=== PATIENT | male | born 1955 | race Caucasian/White ===

== ENCOUNTER 2023-04-24 09:30 | Inpatient (IN) | payer OTHER, SELFPAY ==
[2023-04-24] VITALS (35 sets, daily range): BP systolic 112–142; BP diastolic 62–82; PULSE 84–106; RESP 18–28; TEMP 36.6–37; O2SAT 86–97; BMI 31.6
--- NOTE | 2023-04-24 10:06 | ED_ITS ---
HPI - General Adult General Time Seen by Provider: 10:06 Date Seen: 04/24/23 Chief complaint: Weakness Stated complaint: post chemo complications, diarrhea and dehydration Time Seen by Provider: 04/24/23 10:06 Source: patient and RN notes reviewed Mode of arrival: ambulatory Limitations: no limitations History of Present Illness HPI narrative: Patient is a 68-year-old male referred by his oncology team to be evaluated for possible dehydration. 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 He is receiving treatments in [place]. This past Thursday diarrhea really started to set in. He has had some nausea no vomiting. His last solid intake for food was yesterday but has been able to drink fluids. He has Compazine Zofran Ativan and loperamide for his symptoms. He did take Zofran and loperamide this morning. He believes he used about 10 tablets of loperamide yesterday. He notes he is not going as frequently for urination and the urine is becoming darker. When they talked to the nurse on the phone this morning, she thought he should go in to be evaluated for dehydration. He has no history of C difficile, no abdominal pain, no fevers with this. He does not have oxygen at home, was not noted to be symptomatic with his 86% on arrival. He states he has significant chronic lung disease and is afflicted with bronchopulmonary aspergillosis. He states he has been on prednisone for decades. Related Data Allergies Allergy/AdvReac Type Severity Reaction Status Date / Time No Known Drug Allergies Allergy Verified 04/24/23 12:01 Review of Systems Status of ROS: Reports: 6 or more systems reviewed and unremarkable except as noted in History and below [facility] Social History (System 04/24/23 @ 12:01 by Rosalino Taylor) Smoking Status: Never smoker Do you use any of these nicotine containing products: None Second hand tobacco smoke exposure: No How often do you have a drink containing alcohol: 4 or more times a week How many standard drinks containing alcohol do you have on a typical day: 5 or 6 How often do you have six or more drinks on one occasion: Daily or almost daily AUDIT-C Alcohol total score: 10 Non-prescribed substance use: denies use service: No Exam Const: Vital Signs, click to edit/add: Vital Signs - 24 hr 04/24/23 09:43 04/24/23 10:15 04/24/23 10:15 Temperature 98.3 F Pulse Rate Pulse Rate [Apical ] 106 H Respiratory Rate 28 H Blood Pressure Blood Pressure [Ri ght Upper Arm] 132/70 Pulse Oximetry 86 L 95 95 Oxygen Delivery Me thod Room Air Nasal Cannula Fraction of Inspir ed Oxygen 2 04/24/23 10:34 04/24/23 10:35 04/24/23 10:45 Temperature Pulse Rate 105 H 105 H 104 H Pulse Rate [Apical ] Respiratory Rate Blood Pressure Blood Pressure [Ri ght Upper Arm] Pulse Oximetry 96 96 95 Oxygen Delivery Me thod Fraction of Inspir ed Oxygen 04/24/23 10:53 04/24/23 10:54 04/24/23 11:00 Temperature Pulse Rate 103 H 104 H 104 H Pulse Rate [Apical ] Respiratory Rate Blood Pressure 114/69 Blood Pressure [Ri ght Upper Arm] Pulse Oximetry 97 97 96 Oxygen Delivery Me thod Fraction of Inspir ed Oxygen 04/24/23 11:02 04/24/23 11:15 04/24/23 11:30 Temperature Pulse Rate 101 H 99 95 Pulse Rate [Apical ] Respiratory Rate Blood Pressure 112/82 Blood Pressure [Ri ght Upper Arm] Pulse Oximetry 96 97 97 Oxygen Delivery Me thod Fraction of Inspir ed Oxygen 04/24/23 11:31 04/24/23 12:04 04/24/23 12:05 Temperature Pulse Rate 96 97 Pulse Rate [Apical ] Respiratory Rate Blood Pressure 115/70 142/71 H Blood Pressure [Ri ght Upper Arm] Pulse Oximetry 97 97 Oxygen Delivery Me thod Fraction of Inspir ed Oxygen 04/24/23 12:15 04/24/23 12:30 04/24/23 12:32 Temperature Pulse Rate 99 89 97 Pulse Rate [Apical ] Respiratory Rate Blood Pressure 122/71 Blood Pressure [Ri ght Upper Arm] Pulse Oximetry 96 96 96 Oxygen Delivery Me thod Fraction of Inspir ed Oxygen 04/24/23 12:45 04/24/23 13:00 04/24/23 13:02 Temperature Pulse Rate 96 95 98 Pulse Rate [Apical ] Respiratory Rate Blood Pressure 124/70 Blood Pressure [Ri ght Upper Arm] Pulse Oximetry 96 96 96 Oxygen Delivery Me thod Fraction of Inspir ed Oxygen 04/24/23 13:15 04/24/23 13:30 04/24/23 13:45 Temperature Pulse Rate 88 95 92 Pulse Rate [Apical ] Respiratory Rate Blood Pressure Blood Pressure [Ri ght Upper Arm] Pulse Oximetry 95 95 97 Oxygen Delivery Me thod Fraction of Inspir ed Oxygen 04/24/23 14:00 04/24/23 14:15 04/24/23 14:30 Temperature Pulse Rate 94 92 94 Pulse Rate [Apical ] Respiratory Rate Blood Pressure Blood Pressure [Ri ght Upper Arm] Pulse Oximetry 96 97 96 Oxygen Delivery Me thod Fraction of Inspir ed Oxygen 04/24/23 14:45 04/24/23 15:00 04/24/23 15:05 Temperature Pulse Rate 93 91 92 Pulse Rate [Apical ] Respiratory Rate Blood Pressure Blood Pressure [Ri ght Upper Arm] Pulse Oximetry 97 96 97 Oxygen Delivery Me thod Fraction of Inspir ed Oxygen 04/24/23 15:15 Temperature Pulse Rate 94 Pulse Rate [Apical ] Respiratory Rate Blood Pressure Blood Pressure [Ri ght Upper Arm] Pulse Oximetry 96 Oxygen Delivery Me thod Fraction of Inspir ed Oxygen Documenting provider has reviewed patient's vital signs: yes Common normals: no apparent distress, oriented x3, no limitations, alert and well nourished General appearance: cooperative, comfortable, well kempt and well developed Nutritional appearance: overweight Other: Skin is tanned, is very pleasant but looks like he does not feel the best. HENMT: Common normals: normocephalic, head/scalp atraumatic, hearing grossly normal bilaterally and external ears normal Head and scalp: normocephalic and atraumatic Face and sinus: normal facial exam External ear: external ears normal Eye: Common normals: PERRL, EOMs intact bilaterally, conjunctivae normal and no scleral icterus Conjunctiva: conjunctiva(e) normal Pupil: PERRL Neck & C-Spine: Common normals: full ROM, no lymphadenopathy, supple and no JVD Chest: Other: He has a port on his right upper chest wall, there is lot of swelling and resolving ecchymosis around the site, he states it is quite sore from the last use, he requests that we actually do a peripheral IV today. Resp: Common normals: normal respiratory effort, no retractions and no use of accessory muscles Other: Diminished breath sounds, do not hear any wheezing or crackles. Cardio: Common normals: no JVD, regular rhythm, S1 normal heart sound, S2 normal heart sound, no gallops, no clicks and no murmurs Rate: tachycardic Rhythm: regular rhythm Heart sounds: S1 normal and S2 normal GI: Common normals: Normal to inspection, nondistended, normoactive bowel sounds present, soft to palpation, non-tender, no hepatosplenomegaly and no masses Palpation: soft and no hepatosplenomegaly Extremity: Common normals: no calf tenderness and no pedal edema Neuro: Common normals: oriented x3 Sensorium/orientation: alert Psych: Appearance: well kempt Course Course Hospital Course: Patient is a chemotherapy patient on FOLFIRI with probable dehydration due to diarrhea. Diarrhea is a known complication of this. Will consider entities like C difficile colitis. He denies any blood in the diarrhea. It is likely that this is just chemotherapy complications. Will get appropriate blood work. He is mildly hypoxic, will get portable chest x-ray, also consider thromboembolic disease versus pneumonia versus cardiac manifestations. He is looking quite stable. Will start with a L of IV fluids, doubt his hypoxia is related to anything like congestive heart failure but will obviously be getting a portable chest x-ray. Reevaluation(s) Time of Reevaluation #1: 11:26 Reevaluation #1: Patient is notably feeling better, states he has not had any diarrhea. No chest pain, no abdominal pain. Reviewed that the troponin is elevated but EKG looks to be without ischemia. D-dimer is mildly elevated. Will proceed with chest CT PE protocol. His did want to know how we were going to resolve the diarrhea. Reviewed with her that we really do not have any great wait to do this. If this is chemotherapy-induced, just needs to wait through time and take the medicine he has been using. If he does produce stool, we can check for C difficile. Time of Reevaluation #2: 15:35 Reevaluation #2: Reviewed with patient and his that the troponins are elevated. He states he was feeling better but now feels like the diarrhea is going to come back. Did review with him that we do want a collect for C difficile. I can order Imodium but we really do want to collect stool. He would like to eat, I think that is fine to have him try eating. Reviewed that [facility] does not have capacity to accept him. I do recommend that he is observed for serial troponins, echo tomorrow as per cardiology's recommendations. Consultations Consultation #1: Have contacted [facility], spoke with Precious GIBSON in the transfer center. She will be contacting Oncology/Cardiology and reviewing my request for transfer. Will talk to patient regarding the increased troponin and plan once I have talked to [facility] in follow-up. At 1:[address] speak with Dr[address] Gurrola the hospitalist as well as Dr. Watson from Cardiology. There are no beds at [facility] right now, they are on divert. Dr. Watson feels that patient likely is stable to stay here, trend troponins and consider echo or cardiac MRI. Reviewed with him that we cannot do cardiac MRIs here but could get an echo tomorrow. We will call them back if there is any change in status but they cannot accept patient this time and they do feel that he is stable to be observed here. Time: 14:20 Consultation #2: Did speak with our hospitalist Dr. Marr. We will give 324 mg aspirin, make sure that C difficile is collected. I will allow patient to eat, did order 2 mg dose of Imodium per his request. Will start maintenance fluid as discussed with the hospitalist. Time: 15:46 Vital Signs Vital signs: Initial Vital Signs Temperature 98.3 F 04/24/23 09:43 Temperature Source Temporal Artery Scan 04/24/23 09:43 Pulse Rate 106 H 04/24/23 09:43 Respiratory Rate 28 H 04/24/23 09:43 Blood Pressure 132/70 04/24/23 09:43 Blood Pressure Mean 90 04/24/23 09:43 Blood Pressure Position Supine 04/24/23 09:43 Pulse Oximetry 86 L 04/24/23 09:43 Oxygen Delivery Method Room Air 04/24/23 09:43 Vital Signs Temperature 98.3 F 04/24/23 09:43 Pulse Rate 106 H 04/24/23 09:43 Respiratory Rate 28 H 04/24/23 09:43 Blood Pressure 132/70 04/24/23 09:43 Pulse Oximetry 86 L 04/24/23 09:43 Oxygen Delivery Method Room Air 04/24/23 09:43 Temperature 98.3 F 04/24/23 09:43 Pulse Rate 94 04/24/23 15:15 Respiratory Rate 28 H 04/24/23 09:43 Blood Pressure 124/70 04/24/23 13:02 Pulse Oximetry 96 04/24/23 15:15 Oxygen Delivery Method Nasal Cannula 04/24/23 10:15 Fraction of Inspired Oxygen 2 04/24/23 10:15 Medical Decision Making Medical Records Medical records reviewed: Yes I reviewed the patient's medical records Medical records narrative: Review of prior clinic records show he was last seen in 2019 here. At that time he was on Advair 250/50, prednisone, theophylline, albuterol MDI. He is listed as having had colon cancer status post partial colectomy including his appendix. He does have recurrence at this time and just started chemotherapy last week. Lab Data Lab results reviewed: Yes I reviewed the patient's lab results Labs: Lab Results 04/24/23 04/24/23 Range/Units 10:23 13:31 WBC 3.94 L (4.50-11.00) K/uL RBC 4.59 (4.30-5.90) m/uL Hgb 14.4 (13.5-17.5) gm/dL Hct 43.3 (37.0-53.0) % MCV 94 (80-100) fL MCH 31 (26-34) pg MCHC 33 (32-36) gm/dL RDW Coeff of Oma 12.1 (11.5-15.5) % Plt Count 239 (140-440) K/uL Neut % (Auto) 58.8 (42.0-72.0) % Lymph % (Auto) 17.5 L (20-44) % Payne % (Auto) 16.0 H (0.0-11.0) % Eos % (Auto) 6.9 (0.0-7.0) % Baso % (Auto) 0.3 (0.0-3.0) % Neut # (Auto) 2.30 (1.7-7.0) K/uL Lymph # (Auto) 0.70 L (0.90-2.90) K/uL Payne # (Auto) 0.60 (0.00-0.90) K/UL Eos # (Auto) 0.30 (0.00-0.50) K/uL Baso # (Auto) 0.00 (0.00-0.30) K/uL Abs Immat Gran (auto) 0.00 (0.00-0.30) K/uL Imm/Tot Granulo (auto) 0.5 % D-Dimer Quant (PE/DVT) 0.66 H (0.00-0.50) ug/ml VBG pH 7.387 (7.32-7.43) VBG pCO2 45 (40-50) mmHG VBG pO2 48.3 H (25-47) mmHG VBG HCO3 27 (21-28) mmol/L Sodium 130 L (135-149) mmol/L Potassium 4.0 (3.6-5.1) mmol/L Chloride 97 (96-114) mmol/L Carbon Dioxide 25 (20-32) mmol/L BUN 18 (7-30) mg/dL Creatinine 1.1 (0.5-1.5) mg/dL Estimated Creat Clear 68.21 Estimated GFR 74 ml/min Glucose 105 (60-115) mg/dL Lactate 0.9 (0.5-1.9) mmol/L Calcium 8.3 L (8.4-10.6) mg/dL Total Bilirubin 1.2 (0.1-1.5) mg/dL AST 20 (12-35) U/L ALT 22 (4-50) U/L Alkaline Phosphatase 51 (40-150) U/L Troponin I 0.10 H* 0.21 H* (0.01-0.04) ng/mL C-Reactive Protein 17.7 H (0.5-1.0) mg/dL Total Protein 6.6 (6.0-8.3) g/dL Albumin 3.7 (3.3-5.0) g/dL Imaging Data Chest x-ray: Attestation: I have reviewed the pertinent imaging results. My impression: Appears to have chronic diffuse changes in both lungs, await Radiology over-read for this. Radiologist's impression: Patient: ARELY ALCANTARA Facility:?[facility] Patient ID:?[id number] Site Patient ID:?[id number]. Site :?[id number] Study:?XRay Chest PORTABLE-04/24/2023 10:49:53 AM Ordering Physician:Yony Cruz Final Report: INDICATION: HYPOXIA, HX BRONCHOPULMONARY ASPERGILLOSIS TECHNIQUE: Chest 1 view COMPARISON: 11/02/2017, 11/24/2015 FINDINGS: Chronic thickening of the interlobular septa with bronchial wall thickening noted in a diffuse distribution bilaterally. Right-sided indwelling catheter. Mediastinum similar. No pleural effusion, dense infiltrate or pneumothorax. Spurring at the acromioclavicular joints. IMPRESSION: Chronic fibrotic changes bilaterally. No acute disease. Dictated by Rajesh Dash MD @ 04/24/2023 11:20:57 AM (Electronic Signature) CT scan - chest: Attestation: I have reviewed the pertinent imaging results. Radiologist's impression: Patient: ARELY ALCANTARA Facility:?[facility] Patient ID:?[id number] Site Patient ID:?[id number]. Site :?[id number] Study:?CT Chest Angio w/ 95cc isovue-370 PE Protocol-04/24/2023 12:02:07 PM Ordering Physician:Yony Cruz Final Report: INDICATION: .CANCER, ELEVATED D-DIMER/TROPONIN, HYPOXIA, CHRONIC LUNG DISEASE TECHNIQUE: CT chest PE was acquired with 95 cc Isovue 370 IV contrast. COMPARISON: None FINDINGS: Pulmonary Arteries: No CT evidence of pulmonary thromboembolic disease. No pulmonary hypertension or right ventricular strain. Heart and Mediastinum: Atrophic thyroid. No axillary or supraclavicular lymphadenopathy. No mediastinal, hilar or retrocrural lymphadenopathy. Normal heart size. Normal caliber aorta. Atherosclerotic calcifications. Cardiac motion degrades evaluation at this level however there is questionable thinning of the right ventricular apex. Lungs and Airways: Diffuse cystic bronchiectasis throughout the lungs with more peripheral areas of tree-in-bud nodular airspace opacities and centrilobular nodular airspace opacities. Left upper lobe linear airspace opacity axial image 65 potentially reflecting superimposed airspace disease. No central intraluminal lesion Pleura: The pleural spaces are normal. Abdomen: Colonic diverticulosis. Bones and soft tissues: Right-sided Port-A-Cath with tip at the SVC/RA junction. IMPRESSION: 1. No CT evidence of pulmonary thromboembolic disease. 2. Diffuse cystic bronchiectasis throughout the lungs with more peripheral areas of tree-in-bud nodular airspace opacities and centrilobular nodular airspace opacities. Left upper lobe linear airspace opacity axial image 65 potentially reflecting superimposed airspace disease. Leading differential considerations include an underlying nontuberculous mycobacterial complex infection, primary ciliary dyskinesia, allergic bronchopulmonary aspergillosis. Please note that all CT scans at this facility use dose modulation, iterative reconstruction, and/or weight-based dosing when appropriate to reduce radiation dose to as low as reasonably achievable. Dictated by Rajesh Mcpherson MD @ 04/24/2023 1:18:32 PM (Electronic Signature) ECG Data Attestation: I personally reviewed and interpreted this ECG as follows: (Sinus tachycardia, 102 beats per minute. Q-wave 1, flipped T-waves aVL without ST segment changes. No appearance of active ischemia. QT corrected 477 milliseconds.) Prior ECG tracings: not available for review Interpretation: EKG timed 3:26 p.m. showing normal sinus rhythm. No ischemia. QT corrected 472 milliseconds. Discharge Plan Discharge Clinical Impression: Acute dehydration, Diarrhea, Elevated troponin Patient Disposition: Admitted As Observation Follow Up/Referrals: Tatiana Heller MD [Staff Physician] -
--- NOTE | 2023-04-24 10:15 | CRLHL7_ITS ---
For Patients: As a result of the Century Cures Act, medical imaging exams and procedure reports are released immediately into your electronic medical record. You may view this report before your referring provider. If you have questions, please contact your health care provider. INDICATION: HYPOXIA, HX BRONCHOPULMONARY ASPERGILLOSIS TECHNIQUE: Chest 1 view COMPARISON: 11/02/2017, 11/24/2015 FINDINGS: Chronic thickening of the interlobular septa with bronchial wall thickening noted in a diffuse distribution bilaterally. Right-sided indwelling catheter. Mediastinum similar. No pleural effusion, dense infiltrate or pneumothorax. Spurring at the acromioclavicular joints. IMPRESSION: Chronic fibrotic changes bilaterally. No acute disease. Dictated by Rajesh Dash MD @ 04/24/2023 11:20:57 AM (Electronically Signed)
[2023-04-24 10:28] LABS: HCO3 VBG 27 mmol/L (21-28); Lactate* 0.9 mmol/L (0.5-1.9); PCO2 VBG 45 mmHG (40-50); PO2 VBG 48.3 mmHG (25-47); pH VBG 7.387 (7.32-7.43)
[2023-04-24 10:32] LABS: Basophils Percent Auto 0.3 % (0.0-3.0); Eosinophils Percent Auto 6.9 % (0.0-7.0); Hematocrit 43.3 % (37.0-53.0); Hemoglobin* 14.4 gm/dL (13.5-17.5); Immature Granulocytes Pct Auto 0.5 %; Lymphocytes Percent Auto 17.5 % (20-44); Mean Corpuscular HGB Conc 33 gm/dL (32-36); Mean Corpuscular Hemoglobin 31 pg (26-34); Mean Corpuscular Volume 94 fL (80-100); Neutrophils Percent Auto 58.8 % (42.0-72.0); Platelet Count* 239 K/uL (140-440); RDW Coefficient of Variation % 12.1 % (11.5-15.5); Red Blood Count 4.59 m/uL (4.30-5.90); White Blood Count* 3.94 K/uL (4.50-11.00)
[2023-04-24 10:34] LABS: Slide Review Reflex No
[2023-04-24 10:46] LABS: Albumin* 3.7 g/dL (3.3-5.0); Chloride* 97 mmol/L (96-114); Sodium* 130 mmol/L (135-149)
[2023-04-24 10:49] LABS: Bilirubin Total* 1.2 mg/dL (0.1-1.5); Creatinine* 1.1 mg/dL (0.5-1.5); Est. Creatinine Clearance* 68.21; Estimated Glomerular Filt Rate 74 ml/min
[2023-04-24 10:50] LABS: Alanine Aminotransferase* 22 U/L (4-50); Alkaline Phosphatase* 51 U/L (40-150); Aspartate Amino Transferase* 20 U/L (12-35); Blood Urea Nitrogen* 18 mg/dL (7-30); Calcium* 8.3 mg/dL (8.4-10.6); Carbon Dioxide* 25 mmol/L (20-32); Glucose* 105 mg/dL (60-115); Total Protein* 6.6 g/dL (6.0-8.3)
[2023-04-24 10:53] LABS: D Dimer Quantitative* 0.66 ug/ml (0.00-0.50)
[2023-04-24 11:04] LABS: C Reactive Protein* 17.7 mg/dL (0.5-1.0)
[2023-04-24] MEDS: 0.9 % SODIUM CHLORIDE 1000 ml 1,000 ML IV (11:26)
--- NOTE | 2023-04-24 11:29 | CRLHL7_ITS ---
For Patients: As a result of the Century Cures Act, medical imaging exams and procedure reports are released immediately into your electronic medical record. You may view this report before your referring provider. If you have questions, please contact your health care provider. INDICATION: .CANCER, ELEVATED D-DIMER/TROPONIN, HYPOXIA, CHRONIC LUNG DISEASE TECHNIQUE: CT chest PE was acquired with 95 cc Isovue 370 IV contrast. COMPARISON: None FINDINGS: Pulmonary Arteries: No CT evidence of pulmonary thromboembolic disease. No pulmonary hypertension or right ventricular strain. Heart and Mediastinum: Atrophic thyroid. No axillary or supraclavicular lymphadenopathy. No mediastinal, hilar or retrocrural lymphadenopathy. Normal heart size. Normal caliber aorta. Atherosclerotic calcifications. Cardiac motion degrades evaluation at this level however there is questionable thinning of the right ventricular apex. Lungs and Airways: Diffuse cystic bronchiectasis throughout the lungs with more peripheral areas of tree-in-bud nodular airspace opacities and centrilobular nodular airspace opacities. Left upper lobe linear airspace opacity axial image 65 potentially reflecting superimposed airspace disease. No central intraluminal lesion Pleura: The pleural spaces are normal. Abdomen: Colonic diverticulosis. Bones and soft tissues: Right-sided Port-A-Cath with tip at the SVC/RA junction. IMPRESSION: 1. No CT evidence of pulmonary thromboembolic disease. 2. Diffuse cystic bronchiectasis throughout the lungs with more peripheral areas of tree-in-bud nodular airspace opacities and centrilobular nodular airspace opacities. Left upper lobe linear airspace opacity axial image 65 potentially reflecting superimposed airspace disease. Leading differential considerations include an underlying nontuberculous mycobacterial complex infection, primary ciliary dyskinesia, allergic bronchopulmonary aspergillosis. Please note that all CT scans at this facility use dose modulation, iterative reconstruction, and/or weight-based dosing when appropriate to reduce radiation dose to as low as reasonably achievable. Dictated by Rajesh Mcpherson MD @ 04/24/2023 1:18:32 PM (Electronically Signed)
[2023-04-24] MEDS: LACTATED RINGERS 1000 ML 1,000 ML IV (13:31)
[2023-04-24 14:17] LABS: Troponin I* 0.21 ng/mL (0.01-0.04)
[2023-04-24] MEDS: ONDANSETRON 2 MG/ML inj 4 MG IVP (14:45)
[2023-04-24] MEDS: ASPIRIN 81 MG TAB.CHEW 324 MG PO (15:54)
[2023-04-24] MEDS: 0.9 % SODIUM CHLORIDE 1000 ml 1,000 ML 75 ML IV (15:54)
[2023-04-24] MEDS: LOPERAMIDE HCL 2 MG CAPSULE PO ×3 (16:03→21:00)
--- NOTE | 2023-04-24 16:03 | ED.NURSE ---
Report given, pt transferred to room 255 via wheelchair on tele, with belongings.
--- NOTE | 2023-04-24 16:30 | PM.IMHP1 ---
Hospitalist- H&P: HPI History of Present Illness Date Seen: 04/24/23 Chief complaint: post chemo complications, diarrhea and dehydration Narrative: Carrillo Stearns is a 68 year old male who presented to the emergency room at the behest of his oncology team for 2-3 days of copious, watery diarrhea (10-leigh episodes/day). 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 He has been using Loperamide every 2-3 hours with good control of diarrhea, also using prn Zofran for mild nausea (no vomiting). No abdominal pain. He's urinating very little (unsure if he's had any UOP today). ER course and findings: - O2 saturation 86% on RA upon arrival to ED (typically 90%) - WBC 3.94, Na 130, Ca 8.3 - troponin 0.1, repeat 0.21 - CTA revealed no PE, chronic findings of allergic bronchopulmonary aspergillosis noted - ED physician reviewed case with Cardiology at [facility], who recommended admission to follow troponin, obtaining TTE Don's past medical history updated below. He doesn't have a PCP locally, sees [facility] for Pulmonology and Oncology. Review of Systems Narrative: Patient specifically denies chest pain. He has no orthopnea, no PND. He has chronic dyspnea on exertion secondary to chronic lung disease, unchanged. Mild lower extremity edema- symmetric, chronic, and unchanged. No dysuria. Decreased urination over the past 2 days secondary to diarrhea. 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 Works for [employer]. Nonsmoker, social ETOH without any history of withdrawal. Requests Full Code status. What is your current living situation?: I presently have a place to live Problems where you live: no known problems Problems where you live details: NA In the past 12 months, utilities in danger of being shut off: no In the past 12 mos, have been you worried that your food would run out before you had money to buy more?: never true In the past 12 mos, the food you bought just didn't last and you didn't have money to buy more?: never true Smoking Status: Never smoker Do you use any of these nicotine containing products: None Second hand tobacco smoke exposure: No How often do you have a drink containing alcohol: 4 or more times a week How many standard drinks containing alcohol do you have on a typical day: 5 or 6 How often do you have six or more drinks on one occasion: Daily or almost daily AUDIT-C Alcohol total score: 10 Non-prescribed substance use: denies use Caffeine: No How often does anyone, including family, friends and others, physically hurt you: never How often does anyone, including family, friends and others, insult or talk down to you: never How often does anyone, including family, friends and others, threaten you with harm: never How often does anyone, including family, friends and others, scream or curse at you: never service: No Meds Home Medications and Allergies Home Medications Medication Instructions Recorded Confirmed Type albuterol sulfate 90 mcg/actuation 2 puff inhalation Q6H PRN wheezing 04/24/23 04/24/23 History aerosol inhaler (Ventolin HFA) fluticasone 500 mcg-salmeterol 50 1 inh inhalation BID 04/24/23 04/24/23 History mcg/dose blistr powdr for inhalation (Advair Diskus) loperamide 2 mg capsule 2 mg PO Q1H PRN 04/24/23 04/24/23 History ondansetron HCl 8 mg tablet 8 mg PO Q8H PRN nausea/vomiting 04/24/23 04/24/23 History oxycodone 5 mg tablet 5 mg PO Q4H PRN 04/24/23 04/24/23 History prednisone 5 mg tablet 10 - 15 mg PO DAILY 04/24/23 04/24/23 History prochlorperazine maleate 10 mg 10 mg PO Q6H PRN nausea/vomiting 04/24/23 04/24/23 History tablet Home Medication Comments: Don alternates 10mg with 15mg of Prednisone every other day. He has not missed any doses. He is taking his Advair. Allergies Allergy/AdvReac Type Severity Reaction Status Date / Time No Known Drug Allergies Allergy Verified 04/24/23 12:01 Exam Narrative: Exam Narrative: GEN: Alert and oriented, sitting comfortably in bedside chair HEENT: EOMIs bilaterally, no scleral icterus CV: Heart rate in the 90s during my exam, regular. Soft systolic murmur heard best at left sternal border without radiation or concerning features R: Rhonchorous lung sounds throughout, mild expiratory wheeze bilateral apices Ext: wwp, trace edema bilateral ankles Skin: No concerning skin lesions or rashes on exposed skin Neuro: No focal deficits, no resting tremor Psych: Appropriate Const: Vital Signs, click to edit/add: Vital Signs - 24 hr 04/24/23 09:43 04/24/23 10:15 04/24/23 10:15 Temperature 98.3 F Pulse Rate Pulse Rate [Apical ] 106 H Respiratory Rate 28 H Blood Pressure Blood Pressure [Ri ght Upper Arm] 132/70 Pulse Oximetry 86 L 95 95 Oxygen Delivery Me thod Room Air Nasal Cannula Fraction of Inspir ed Oxygen 2 04/24/23 10:34 04/24/23 10:35 04/24/23 10:45 Temperature Pulse Rate 105 H 105 H 104 H Pulse Rate [Apical ] Respiratory Rate Blood Pressure Blood Pressure [Ri ght Upper Arm] Pulse Oximetry 96 96 95 Oxygen Delivery Me thod Fraction of Inspir ed Oxygen 04/24/23 10:53 04/24/23 10:54 04/24/23 11:00 Temperature Pulse Rate 103 H 104 H 104 H Pulse Rate [Apical ] Respiratory Rate Blood Pressure 114/69 Blood Pressure [Ri ght Upper Arm] Pulse Oximetry 97 97 96 Oxygen Delivery Me thod Fraction of Inspir ed Oxygen 04/24/23 11:02 04/24/23 11:15 04/24/23 11:30 Temperature Pulse Rate 101 H 99 95 Pulse Rate [Apical ] Respiratory Rate Blood Pressure 112/82 Blood Pressure [Ri ght Upper Arm] Pulse Oximetry 96 97 97 Oxygen Delivery Me thod Fraction of Inspir ed Oxygen 04/24/23 11:31 04/24/23 12:04 04/24/23 12:05 Temperature Pulse Rate 96 97 Pulse Rate [Apical ] Respiratory Rate Blood Pressure 115/70 142/71 H Blood Pressure [Ri ght Upper Arm] Pulse Oximetry 97 97 Oxygen Delivery Me thod Fraction of Inspir ed Oxygen 04/24/23 12:15 04/24/23 12:30 04/24/23 12:32 Temperature Pulse Rate 99 89 97 Pulse Rate [Apical ] Respiratory Rate Blood Pressure 122/71 Blood Pressure [Ri ght Upper Arm] Pulse Oximetry 96 96 96 Oxygen Delivery Me thod Fraction of Inspir ed Oxygen 04/24/23 12:45 04/24/23 13:00 04/24/23 13:02 Temperature Pulse Rate 96 95 98 Pulse Rate [Apical ] Respiratory Rate Blood Pressure 124/70 Blood Pressure [Ri ght Upper Arm] Pulse Oximetry 96 96 96 Oxygen Delivery Me thod Fraction of Inspir ed Oxygen 04/24/23 13:15 04/24/23 13:30 04/24/23 13:45 Temperature Pulse Rate 88 95 92 Pulse Rate [Apical ] Respiratory Rate Blood Pressure Blood Pressure [Ri ght Upper Arm] Pulse Oximetry 95 95 97 Oxygen Delivery Me thod Fraction of Inspir ed Oxygen 04/24/23 14:00 04/24/23 14:15 04/24/23 14:30 Temperature Pulse Rate 94 92 94 Pulse Rate [Apical ] Respiratory Rate Blood Pressure Blood Pressure [Ri ght Upper Arm] Pulse Oximetry 96 97 96 Oxygen Delivery Me thod Fraction of Inspir ed Oxygen 04/24/23 14:45 04/24/23 15:00 04/24/23 15:05 Temperature Pulse Rate 93 91 92 Pulse Rate [Apical ] Respiratory Rate Blood Pressure Blood Pressure [Ri ght Upper Arm] Pulse Oximetry 97 96 97 Oxygen Delivery Me thod Fraction of Inspir ed Oxygen 04/24/23 15:15 Temperature Pulse Rate 94 Pulse Rate [Apical ] Respiratory Rate Blood Pressure Blood Pressure [Ri ght Upper Arm] Pulse Oximetry 96 Oxygen Delivery Me thod Fraction of Inspir ed Oxygen Hospitalist - H&P: Result Labs Labs: Short CBC 04/24/23 Range/Units 10:23 WBC 3.94 L (4.50-11.00) K/uL Hgb 14.4 (13.5-17.5) gm/dL Hct 43.3 (37.0-53.0) % Plt Count 239 (140-440) K/uL BMP 04/24/23 10:23 Sodium 130 L Potassium 4.0 Chloride 97 Carbon Dioxide 25 BUN 18 Creatinine 1.1 Glucose 105 Calcium 8.3 L Cardiac Enzymes 04/24/23 04/24/23 Range/Units 10:23 13:31 Troponin I 0.10 H* 0.21 H* (0.01-0.04) ng/mL Liver Function 04/24/23 Range/Units 10:23 Total Bilirubin 1.2 (0.1-1.5) mg/dL AST 20 (12-35) U/L ALT 22 (4-50) U/L Alkaline Phosphatase 51 (40-150) U/L Albumin 3.7 (3.3-5.0) g/dL Assessment and Plan Assessment and plan (1) Acute on chronic respiratory failure with hypoxia: Problem comment: - not on home oxygen as an outpatient - ddx: aspergillosis, NSTEMI - taper supplemental oxygen as tolerated, TTE ordered Status: Acute (2) Diarrhea: Problem comment: - very likely iatrogenic - no evidence of adrenal insufficiency (has not missed any Prednisone), infectious process - will confirm C-Diff negative, treat symptomatically Status: Acute (3) Elevated troponin: Problem comment: - ddx: NSTEMI, acute cardiac strain 2/2 dehydration/acute illness - follow troponin to peak, TTE ordered Status: Acute (4) Acute dehydration: Problem comment: - 2/2 diarrhea. 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
[2023-04-24] MEDS: LACTOBACILLUS ACIDOPHILUS 1 TABLET 2 TAB PO (18:20)
[2023-04-24 18:56] LABS: Troponin I* 0.28 ng/mL (0.01-0.04)
[2023-04-24] MEDS: PROCHLORPERAZINE 10 MG TABLET PO (19:10)
[2023-04-24 19:57] LABS: C.Difficile Negative (Negative); CDIFFEPI 027 PRESUMPTIVE NEGATIVE (Negative)
[2023-04-24] MEDS: ENOXAPARIN 40 MG/0.4 ML INJ SUBCUT (20:53)
[2023-04-24] MEDS: ONDANSETRON ODT 4 MG TAB PO (21:00)
--- NOTE | 2023-04-24 22:35 | PC.NURSE ---
Shift [id number]- Patient arrives to floor from ED at approximately 1600 with . He denies pain, chest pain throughout shift. He admits to SOB with exertions, remains on 2L O2 with saturations in low 90s%. Wheezes on exhalation. He has some disinterest in compliance with some elements of care. For instance, responding: I'll just take my oxygen off when I get up to go to bathroom, I don't need it for that when RN states intent to get longer tubing for continuous use. After education, he is generally agreeable to keep oxygen on at all times, and other interventions. He has 2 loose stools this shift. He also complains of some nausea- see eMAR for medication administration. He states zofran is more effective.
[2023-04-25] VITALS (11 sets, daily range): BP systolic 118–128; BP diastolic 59–80; PULSE 71–102; RESP 18–22; TEMP 36.3–37.7; O2SAT 91–96
[2023-04-25] LABS: Troponin I* 0.27 ng/mL (0.01-0.04)
--- NOTE | 2023-04-25 | CRLHL7_ITS ---
For Patients: As a result of the Century Cures Act, medical imaging exams and procedure reports are released immediately into your electronic medical record. You may view this report before your referring provider. If you have questions, please contact your health care provider. INDICATION: Tachycardia. TECHNIQUE: Chest 1 views. COMPARISON: None. FINDINGS: Cardiovascular and mediastinum: Heart size and vasculature are normal in caliber and appearance. Right chest wall port. Lungs and pleural spaces: Low lung volumes. Bilateral interstitial predominant airspace opacities. No sign of pleural effusion. No pneumothorax. Bones and soft tissues: No significant findings. IMPRESSION: Bilateral interstitial predominant airspace opacities, possibly pneumonia or pulmonary edema in the appropriate clinical setting. Dictated by Jean-Paul Otero MD @ 04/25/2023 8:25:53 PM (Electronically Signed)
[2023-04-25] MEDS: PROCHLORPERAZINE 10 MG TABLET PO (01:41)
[2023-04-25] MEDS: 0.9 % SODIUM CHLORIDE 1000 ml 1,000 ML 75 ML IV (03:55)
--- NOTE | 2023-04-25 06:44 | PC.NURSE ---
Patient alert and oriented x 4. Denies any pain throughout this shift. Expiratory wheezing noted on auscultation to upper and lower lobes, lung bases diminished breath sounds. Patient noted to be using accessory muscles with respirations but denies shortness of breath, he states that he has wheezing at baseline. Denies cough. Oxygen on at 2L per nasal cannula and maintaining sats >94%. Abdomen round and firm, non tender to touch. Continues with loose stools, bowel sounds hyperactive in lower quadrants. Denies need for imodium or lomotil. Independent in room with ambulation.
[2023-04-25 06:59] LABS: HCO3 VBG 25 mmol/L (21-28); PCO2 VBG 49 mmHG (40-50); PO2 VBG 75.5 mmHG (25-47); pH VBG 7.315 (7.32-7.43)
[2023-04-25 07:05] LABS: Basophils Percent Auto 0.5 % (0.0-3.0); Eosinophils Percent Auto 7.7 % (0.0-7.0); Hematocrit 38.5 % (37.0-53.0); Hemoglobin* 12.6 gm/dL (13.5-17.5); Immature Granulocytes Pct Auto 0.3 %; Lymphocytes Percent Auto 22.5 % (20-44); Mean Corpuscular HGB Conc 33 gm/dL (32-36); Mean Corpuscular Hemoglobin 31 pg (26-34); Mean Corpuscular Volume 95 fL (80-100); Monocytes Percent Auto 16.7 % (0.0-11.0); Neutrophils Percent Auto 52.3 % (42.0-72.0); Platelet Count* 224 K/uL (140-440); RDW Coefficient of Variation % 12.1 % (11.5-15.5); Red Blood Count 4.04 m/uL (4.30-5.90); White Blood Count* 3.77 K/uL (4.50-11.00)
[2023-04-25 07:12] LABS: Slide Review Reflex No
[2023-04-25 07:22] LABS: Albumin* 3.2 g/dL (3.3-5.0); Chloride* 102 mmol/L (96-114)
[2023-04-25 07:23] LABS: Potassium* 3.7 mmol/L (3.6-5.1); Sodium* 132 mmol/L (135-149)
[2023-04-25 07:25] LABS: Alanine Aminotransferase* 17 U/L (4-50); Alkaline Phosphatase* 47 U/L (40-150); Aspartate Amino Transferase* 19 U/L (12-35); Bilirubin Total* 0.6 mg/dL (0.1-1.5); Blood Urea Nitrogen* 11 mg/dL (7-30); Carbon Dioxide* 25 mmol/L (20-32); Creatinine* 0.9 mg/dL (0.5-1.5); Est. Creatinine Clearance* 75.03; Estimated Glomerular Filt Rate 94 ml/min; Glucose* 100 mg/dL (60-115); Total Protein* 5.9 g/dL (6.0-8.3)
[2023-04-25 07:26] LABS: Calcium* 7.8 mg/dL (8.4-10.6)
[2023-04-25 07:54] LABS: Troponin I* 0.35 ng/mL (0.01-0.04)
[2023-04-25] MEDS: LOPERAMIDE HCL 2 MG CAPSULE PO ×5 (08:09→22:53)
[2023-04-25] MEDS: predniSONE 5 MG TABLET 10 MG PO (09:11)
[2023-04-25] MEDS: LACTOBACILLUS ACIDOPHILUS 1 TABLET 2 TAB PO ×3 (09:11→17:25)
[2023-04-25] MEDS: ALBUTEROL INHALER 2 PUFF IH (11:29)
--- NOTE | 2023-04-25 11:30 | PM.IMPN1 ---
Progress Note: A&P Assessment and plan (1) Acute on chronic respiratory failure with hypoxia: Problem details: - not on home oxygen as an outpatient - ddx: aspergillosis, NSTEMI - taper supplemental oxygen as tolerated, TTE ordered Status: Acute (2) Diarrhea: Problem details: - very likely iatrogenic - no evidence of adrenal insufficiency (has not missed any Prednisone) or infectious process. Negative C-diff - will give one time dose of IV Hydrocortisone on 04/25 given chronic steroid use Status: Acute (3) Elevated troponin: Problem details: - ddx: NSTEMI, acute cardiac strain 2/2 dehydration/acute illness - follow troponin to peak, TTE ordered Status: Acute (4) Acute dehydration: Problem details: - 2/2 diarrhea. 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 - received first round of FOLFIRI on 04/16 - follows with Oncology at [place] Status: Acute (6) Chronic pulmonary aspergillosis: Problem details: - follows with Pulmonology at [place] Status: Acute (7) Chronic steroid use: Problem details: - alternates 10mg/15mg Prednisone daily - reassuring VS and labs - one time dose of IV Hydrocortisone on 04/25 Status: Acute Plan - per above - ASA, SCDs for ppx - given acute on chronic respiratory failure with hypoxia, elevated troponin, continued diarrhea, recommend one more hospital day for management - updated at bedside, questions answered Subjective Date Seen: 04/25/23 Interval history: Antolin continues to have intermittent watery diarrhea, moderate relief with Imodium. He continues to require supplemental oxygen (saturations to 85% range on RA, even at rest); continues to deny chest pain. His CASTILLO is at baseline. He would like to go home today. Troponin this morning was 0.35 Exam Narrative: Exam Narrative: GEN: Alert and laying comfortably in bed HEENT: EOMIs bilaterally, no scleral icterus CV: RRR, no concerning murmurs, heart sounds distant R: Expiratory wheezing, bibasilar rhonchi Skin: No concerning skin lesions or rashes on exposed skin Neuro: No focal deficits Psych: Appropriate Const: Vital Signs, click to edit/add: Vital Signs - 24 hr 04/24/23 11:31 04/24/23 12:04 04/24/23 12:05 Temperature Pulse Rate 96 97 Pulse Rate [Pulse Oximeter] Respiratory Rate Blood Pressure 115/70 142/71 H Blood Pressure [Le ft Arm] Pulse Oximetry 97 97 Oxygen Delivery Me thod Oxygen Flow Rate 04/24/23 12:15 04/24/23 12:30 04/24/23 12:32 Temperature Pulse Rate 99 89 97 Pulse Rate [Pulse Oximeter] Respiratory Rate Blood Pressure 122/71 Blood Pressure [Le ft Arm] Pulse Oximetry 96 96 96 Oxygen Delivery Me thod Oxygen Flow Rate 04/24/23 12:45 04/24/23 13:00 04/24/23 13:02 Temperature Pulse Rate 96 95 98 Pulse Rate [Pulse Oximeter] Respiratory Rate Blood Pressure 124/70 Blood Pressure [Le ft Arm] Pulse Oximetry 96 96 96 Oxygen Delivery Me thod Oxygen Flow Rate 04/24/23 13:15 04/24/23 13:30 04/24/23 13:45 Temperature Pulse Rate 88 95 92 Pulse Rate [Pulse Oximeter] Respiratory Rate Blood Pressure Blood Pressure [Le ft Arm] Pulse Oximetry 95 95 97 Oxygen Delivery Me thod Oxygen Flow Rate 04/24/23 14:00 04/24/23 14:15 04/24/23 14:30 Temperature Pulse Rate 94 92 94 Pulse Rate [Pulse Oximeter] Respiratory Rate Blood Pressure Blood Pressure [Le ft Arm] Pulse Oximetry 96 97 96 Oxygen Delivery Me thod Oxygen Flow Rate 04/24/23 14:45 04/24/23 15:00 04/24/23 15:05 Temperature Pulse Rate 93 91 92 Pulse Rate [Pulse Oximeter] Respiratory Rate Blood Pressure Blood Pressure [Le ft Arm] Pulse Oximetry 97 96 97 Oxygen Delivery Me thod Oxygen Flow Rate 04/24/23 15:15 04/24/23 16:20 04/24/23 17:06 Temperature 98.6 F Pulse Rate 94 Pulse Rate [Pulse Oximeter] 94 Respiratory Rate 18 Blood Pressure Blood Pressure [Le ft Arm] 120/74 Pulse Oximetry 96 93 92 Oxygen Delivery Me thod Nasal Cannula Nasal Cannula Oxygen Flow Rate 2 2 04/24/23 18:01 04/24/23 19:09 04/24/23 23:00 Temperature 97.9 F Pulse Rate 91 Pulse Rate [Pulse Oximeter] 84 Respiratory Rate 20 19 Blood Pressure Blood Pressure [Le ft Arm] 125/62 Pulse Oximetry 94 96 Oxygen Delivery Me thod Nasal Cannula Nasal Cannula Oxygen Flow Rate 2 04/24/23 23:00 04/24/23 23:00 04/25/23 03:00 Temperature 98.0 F 98.0 F Pulse Rate 84 Pulse Rate [Pulse Oximeter] 89 88 Respiratory Rate 19 22 Blood Pressure Blood Pressure [Le ft Arm] 126/70 118/66 Pulse Oximetry 96 94 Oxygen Delivery Me thod Nasal Cannula Nasal Cannula Oxygen Flow Rate 2 2 04/25/23 07:00 04/25/23 07:00 04/25/23 07:00 Temperature 98.2 F Pulse Rate 88 Pulse Rate [Pulse Oximeter] 90 Respiratory Rate 22 Blood Pressure Blood Pressure [Le ft Arm] 123/68 Pulse Oximetry 94 94 Oxygen Delivery Me thod Nasal Cannula Nasal Cannula Oxygen Flow Rate 1 1 04/25/23 07:00 Temperature Pulse Rate Pulse Rate [Pulse Oximeter] 90 Respiratory Rate 22 Blood Pressure Blood Pressure [Le ft Arm] Pulse Oximetry Oxygen Delivery Me thod Oxygen Flow Rate Labs Labs: Laboratory Results - last 24 hr 04/24/23 04/24/23 04/24/23 13:31 18:18 19:05 WBC RBC Hgb Hct MCV MCH MCHC RDW Coeff of Oma Plt Count Neut % (Auto) Lymph % (Auto) [place] % (Auto) Eos % (Auto) Baso % (Auto) Neut # (Auto) Lymph # (Auto) [place] # (Auto) Eos # (Auto) Baso # (Auto) Abs Immat Gran (auto) Imm/Tot Granulo (auto) VBG pH VBG pCO2 VBG pO2 VBG HCO3 Sodium Potassium Chloride Carbon Dioxide BUN Creatinine Estimated Creat Clear Estimated GFR Glucose Calcium Total Bilirubin AST ALT Alkaline Phosphatase Troponin I 0.21 H* 0.28 H* Total Protein Albumin Stl C. diff Tox B Gene Negative Stl C. diff [id number] PRESUMPTIVE NEGATIVE 04/24/23 04/25/23 23:23 06:35 WBC 3.77 L RBC 4.04 L Hgb 12.6 L Hct 38.5 MCV 95 MCH 31 MCHC 33 RDW Coeff of Oma 12.1 Plt Count 224 Neut % (Auto) 52.3 Lymph % (Auto) 22.5 [place] % (Auto) 16.7 H Eos % (Auto) 7.7 H Baso % (Auto) 0.5 Neut # (Auto) 2.00 Lymph # (Auto) 0.80 L [place] # (Auto) 0.60 Eos # (Auto) 0.30 Baso # (Auto) 0.00 Abs Immat Gran (auto) 0.00 Imm/Tot Granulo (auto) 0.3 VBG pH 7.315 L VBG pCO2 49 VBG pO2 75.5 H VBG HCO3 25 Sodium 132 L Potassium 3.7 Chloride 102 Carbon Dioxide 25 BUN 11 Creatinine 0.9 Estimated Creat Clear 75.03 Estimated GFR 94 Glucose 100 Calcium 7.8 L Total Bilirubin 0.6 AST 19 ALT 17 Alkaline Phosphatase 47 Troponin I 0.27 H* 0.35 H* Total Protein 5.9 L Albumin 3.2 L Stl C. diff Tox B Gene Stl C. diff [id number]
[2023-04-25] MEDS: HYDROCORTISONE SOD SUCCINATE 50 MG/ML inj 100 MG IVP (12:36)
[2023-04-25] MEDS: ASPIRIN 81 MG TAB.CHEW PO (12:36)
[2023-04-25] MEDS: ACETAMINOPHEN 325 MG TABLET 975 MG PO (14:47)
--- NOTE | 2023-04-25 15:32 | PC.NURSE ---
End of Shift: Patient pleasant and cooperative. Continues to have diarrhea. PRN Imodium x3. Denies nausea. Tolerating regular diet. Denies pain. C/o feeling flushed around 1440, temp 99.8, heart rate 102. Updated MD and in to see patient. PRN Tylenol given. O2 sats decrease to 85% on room air, 1L NC to keep O2 sats greater than 90%.
--- NOTE | 2023-04-25 16:24 | PC.NURSE ---
Port attempted to be accessed- landmarks unavailable. Port access unsuccessful.
[2023-04-25] MEDS: ENOXAPARIN 40 MG/0.4 ML INJ SUBCUT (20:31)
[2023-04-25] MEDS: SODIUM CHLORIDE 0.9 % (FLUSH) 10 ML SYRINGE 5 ML IVF (20:32)
--- NOTE | 2023-04-25 22:47 | PC.NURSE ---
Shift [id number]- Patient states some nausea this afternoon, declines nausea med. He continues to have loose stools this shift. He is up ad bart, walks halls with - oxygen applied. Temperature this evening is decreased from this afternoon. Bladder scan post void with ~5mL residual.
[2023-04-25] MEDS: AZITHROMYCIN 250 MG TABLET 500 MG PO (23:57)
[2023-04-25] MEDS: cefTRIAXone 2 GM in 0.9 % SODIUM CHLORIDE Mini-bag 100 ML IVPB (23:57)
[2023-04-26] MEDS: LOPERAMIDE HCL 2 MG CAPSULE PO ×3 (03:53→11:24)
[2023-04-26 03:54] VITALS: BP 152/78; PULSE 96; RESP 22; TEMP 36.3; O2SAT 96
[2023-04-26] MEDS: DIPHENOXYLATE-ATROP 2.5-0.025 TABLET 1 TAB PO (05:58)
--- NOTE | 2023-04-26 06:41 | PC.NURSE ---
[id number]: Pt A&O. VSS. attempted to ween pt to room air?but sats dropped to mid 80s. Denies SOB. Pt continues to have loose stools, PRN Imodium given x2. Loose stools continued so PRN Lomotil given. Denies chest pain.?Up at bart.
[2023-04-26 06:53] LABS: Basophils Percent Auto 0.8 % (0.0-3.0); Eosinophils Percent Auto 4.5 % (0.0-7.0); Hematocrit 35.5 % (37.0-53.0); Hemoglobin* 11.7 gm/dL (13.5-17.5); Immature Granulocytes Pct Auto 0.8 %; Lymphocytes Percent Auto 19.2 % (20-44); Mean Corpuscular HGB Conc 33 gm/dL (32-36); Mean Corpuscular Hemoglobin 31 pg (26-34); Mean Corpuscular Volume 95 fL (80-100); Monocytes Percent Auto 20.1 % (0.0-11.0); Neutrophils Percent Auto 54.6 % (42.0-72.0); Platelet Count* 228 K/uL (140-440); RDW Coefficient of Variation % 11.8 % (11.5-15.5); Red Blood Count 3.75 m/uL (4.30-5.90); White Blood Count* 3.59 K/uL (4.50-11.00)
[2023-04-26 07:00] VITALS: BP 120/87; PULSE 78; PULSE 79; RESP 20; TEMP 36.7; O2SAT 94
[2023-04-26 07:03] LABS: Slide Review Reflex No
[2023-04-26 07:07] LABS: Chloride* 100 mmol/L (96-114)
[2023-04-26 07:08] LABS: Albumin* 3.2 g/dL (3.3-5.0); Potassium* 3.3 mmol/L (3.6-5.1); Sodium* 134 mmol/L (135-149)
[2023-04-26 07:11] LABS: Alanine Aminotransferase* 18 U/L (4-50); Alkaline Phosphatase* 45 U/L (40-150); Aspartate Amino Transferase* 18 U/L (12-35); Bilirubin Total* 0.2 mg/dL (0.1-1.5); Blood Urea Nitrogen* 9 mg/dL (7-30); Carbon Dioxide* 28 mmol/L (20-32); Creatinine* 0.9 mg/dL (0.5-1.5); Est. Creatinine Clearance* 75.03; Estimated Glomerular Filt Rate 94 ml/min; Glucose* 118 mg/dL (60-115)
[2023-04-26 07:12] LABS: Calcium* 8.1 mg/dL (8.4-10.6)
[2023-04-26] MEDS: LACTOBACILLUS ACIDOPHILUS 1 TABLET 2 TAB PO (07:55)
[2023-04-26] MEDS: ASPIRIN 81 MG TAB.CHEW PO (07:55)
[2023-04-26] MEDS: predniSONE 5 MG TABLET 15 MG PO (07:56)
--- NOTE | 2023-04-26 10:43 | W.PM.HOT ---
Acute Home Oxygen Therapy Acute Home Oxygen Therapy Provider Note Provider Note: Patient was admitted on 04/24/23 at 16:56 and will be discharging on 04/26/23. Patient is desaturating with SATs of 80% on room air due to pulmonary aspergillosis. Alternative therapies have been attempted and have not been successful in maintaining the patient's saturation level above 88%. Supplemental O2 is required. This patient is mobile within the home and requires portability.
--- NOTE | 2023-04-26 10:45 | P.DS_ITS ---
DS: Providers Provider Date Seen: 04/26/23 Date of admission: 04/24/23 16:56 Primary care physician: Not a Local Provider Admitting Clinician: Mary Marr MD Consults: RT Attending Physician on discharge: Mary Marr MD Date of Discharge: 04/26/23 DS: Diagnosis Discharge Diagnosis (1) Acute on chronic respiratory failure with hypoxia: Status: Acute Problem details: - not on home oxygen as an outpatient - ddx: aspergillosis flare, CAP, NSTEMI - taper supplemental oxygen as tolerated - TTE performed 04/25: Moderately increased LV wall thickness, EF 65-70%, mildly enlarged right ventricular cavity, mildly reduced global systolic RV function, moderately increased pulmonary pressures (2) Diarrhea: Status: Acute Problem details: - very likely iatrogenic - no evidence of adrenal insufficiency (has not missed any Prednisone) or infectious process. Negative C-diff - given one time dose of IV Hydrocortisone on 04/25 given chronic steroid use - controlled with scheduled Imodium (3) Elevated troponin: Status: Acute Problem details: - ddx: NSTEMI, acute cardiac strain 2/2 dehydration/acute illness - troponin peaked at 0.35 - patient never had chest pain during stay (4) Acute dehydration: Status: Acute Problem details: - 2/2 diarrhea. 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 - received first round of FOLFIRI on 04/16 - follows with Oncology at [facility] (6) Chronic pulmonary aspergillosis: Status: Acute Problem details: - follows with Pulmonology at [facility] (7) Chronic steroid use: Status: Acute Problem details: - alternates 10mg/15mg Prednisone daily - reassuring VS and labs - one time dose of IV Hydrocortisone on 04/25 DS: Summary Hospital Course Hospital Course: Carrillo is a very pleasant 68-year-old male with a 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 In the emergency department, he was found to be acutely hypoxic with an elevated troponin. He denied any changes to his chronic dyspnea and had no chest pain throughout stay. Troponin peaked at 0.35 and echocardiogram obtained, exhibiting no acute findings. Chest x-ray did not 8 exhibit any acute abnormalities on admission, on hospital day 1 he noted feeling hot with an elevated temperature (no true fever) and tachycardia; repeat chest x-ray could not rule out early community-acquired pneumonia. Given patient's immunosuppressed status, azithromycin and ceftriaxone were initiated. He felt back to baseline on hospital day 2 and requested discharge home with oral antibiotics. We were unable to taper patient off of supplemental oxygen, and he was discharged with home O2 to use with activity. Chronic conditions, noted above, otherwise remained stable. Status at Discharge Functional status at discharge: independent ambulation Overall status at discharge: patient is progressing back to baseline Time Spent with Patient Time attestation: Total time spent providing and/or coordinating discharge services: Time spent: Greater than 30 minutes Specific discharge activities: Medication reconciliation, home O2 therapy documentation, care coordination Exam Narrative: Exam Narrative: GEN: Alert and oriented, nontoxic in appearance HEENT: EOMIs bilaterally, no scleral icterus CV: RRR, No concerning murmurs R: Rhonchorous throughout, unchanged from admission Ext: wwp, no concerning edema Skin: No concerning skin lesions or rashes on exposed skin Neuro: No focal deficits Psych: Appropriate Const: Vital Signs, click to edit/add: Vital Signs - 24 hr 04/25/23 11:00 04/25/23 14:47 04/25/23 15:00 Temperature 97.9 F 99.8 F H 99.8 F H Pulse Rate Pulse Rate [Pulse Oximeter] 90 102 H Respiratory Rate 20 20 Blood Pressure [Le ft Arm] 124/59 L 123/67 Pulse Oximetry 95 91 Oxygen Delivery Me thod Nasal Cannula Nasal Cannula Oxygen Flow Rate 1 1 Fraction of Inspir ed Oxygen 04/25/23 15:41 04/25/23 15:42 04/25/23 19:00 Temperature 97.9 F Pulse Rate 95 Pulse Rate [Pulse Oximeter] 84 Respiratory Rate 18 Blood Pressure [Le ft Arm] 128/68 Pulse Oximetry 94 93 Oxygen Delivery Me thod Nasal Cannula Nasal Cannula Oxygen Flow Rate 1 1 Fraction of Inspir ed Oxygen 04/25/23 23:06 04/25/23 23:07 04/25/23 23:30 Temperature 97.3 F L Pulse Rate 71 Pulse Rate [Pulse Oximeter] 77 Respiratory Rate 18 Blood Pressure [Le ft Arm] 123/80 Pulse Oximetry 96 96 Oxygen Delivery Me thod Nasal Cannula Nasal Cannula Oxygen Flow Rate 1 1 Fraction of Inspir ed Oxygen 04/26/23 03:54 04/26/23 07:00 04/26/23 07:00 Temperature 97.3 F L Pulse Rate 78 Pulse Rate [Pulse Oximeter] 96 Respiratory Rate 22 Blood Pressure [Le ft Arm] 152/78 H Pulse Oximetry 96 94 Oxygen Delivery Me thod Nasal Cannula Nasal Cannula Oxygen Flow Rate 1 1 Fraction of Inspir ed Oxygen 04/26/23 07:00 04/26/23 07:00 Temperature 98.0 F Pulse Rate Pulse Rate [Pulse Oximeter] 79 79 Respiratory Rate 20 20 Blood Pressure [Le ft Arm] 120/87 Pulse Oximetry 94 Oxygen Delivery Me thod Nasal Cannula Oxygen Flow Rate Fraction of Inspir ed Oxygen 1 DS: Data Data Completed and Pending Labs on day of discharge: Labs from last 24 hours 04/26/23 04/25/23 05:45 11:20 WBC 3.59 L RBC 3.75 L Hgb 11.7 L Hct 35.5 L MCV 95 MCH 31 MCHC 33 RDW Coeff of Oma 11.8 Plt Count 228 Neut % (Auto) 54.6 Lymph % (Auto) 19.2 L Bucks % (Auto) 20.1 H Eos % (Auto) 4.5 Baso % (Auto) 0.8 Neut # (Auto) 2.00 Lymph # (Auto) 0.70 L Bucks # (Auto) 0.70 Eos # (Auto) 0.20 Baso # (Auto) 0.00 Abs Immat Gran (auto) 0.00 Imm/Tot Granulo (auto) 0.8 Sodium 134 L Potassium 3.3 L Chloride 100 Carbon Dioxide 28 BUN 9 Creatinine 0.9 Estimated Creat Clear 75.03 Estimated GFR 94 Glucose 118 H Calcium 8.1 L Total Bilirubin 0.2 AST 18 ALT 18 Alkaline Phosphatase 45 Troponin I 0.30 H* Total Protein 6.0 Albumin 3.2 L Preliminary micro results at discharge 04/24/23 10:33 Blood Culture - Preliminary Blood NO GROWTH AFTER 48 HOURS 04/25/23 16:17 Urine Culture - Preliminary Urine,Clean Catch Culture in Progress Discharge Plan Discharge Disposition: Home, Self-Care Date of Admission: 04/24/23 16:56 Attending Provider on Discharge: Mary Marr Primary Care Provider: Provider,Not a Local Condition: Improved Anticipated Discharge Date/Time: 04/26/23 07:56 Discharge Medications: New loperamide 2 mg capsule 4 mg PO Q2H PRN (Reason: loose stool) Qty: 60 0RF Rx Instructions: 2 tabs every 2-4 hours as needed for diarrhea doxycycline hyclate 100 mg tablet 100 mg PO BID 7 Days Qty: 14 0RF Continued ondansetron HCl 8 mg tablet 8 mg PO Q8H PRN (Reason: nausea/vomiting) prednisone 5 mg tablet 10 - 15 mg PO DAILY Rx Instructions: ALTERNATE 10 AND 15 MG DAILY prochlorperazine maleate 10 mg tablet 10 mg PO Q6H PRN (Reason: nausea/vomiting) fluticasone propion-salmeterol [Advair Diskus] 500-50 mcg/dose blister with device 1 inh inhalation BID albuterol sulfate [Ventolin HFA] 90 mcg/actuation HFA aerosol inhaler 2 puff INHALATION Q6H PRN (Reason: wheezing) oxycodone 5 mg tablet 5 mg PO Q4H PRN Discontinued loperamide 2 mg capsule 2 mg PO Q1H PRN Discharge Orders: Discharge Order (Routine); Ordered 04/26/23 Ordered By: Mary Marr Patient Education: Loperamide (By mouth), Doxycycline (By mouth), Using Oxygen at Home (DC), Acute Diarrhea (GEN), High Troponin Levels (GEN) Additional Instructions: Take Imodium (generic name Loperamide) 2 tabs every 2-4 hours for diarrhea. Continue Doxycycline as antibiotic (sent to [facility]). Add in a daily probiotic (you can get a pill or powder form at [facility] - lactobacillus is a good option). Family medicine doctors at [facility] in [place] to consider for PCP: Dr. Shiloh Bliss, Dr. Ryan, Dr. Powers Wear oxygen at home, 2L per nasal cannula with activity. Activity Level: No strenuous activity Discharge Diet: Regular Follow Up Appointments: Provider,Not a Local [Primary Care Provider] - (Consider establishing care with family physicians listed above. Followup with [facility] as scheduled. Please fax H&P, d/c summary, and results to [facility] at [phone]) Oliver Anne MD [Staff Physician] - 05/11/23 8:00 am ([facility]) Forms: [employer] Info Instructions
[2023-04-26 11:00] VITALS: PULSE 79; O2SAT 90
--- NOTE | 2023-04-26 13:30 | PC.NURSE ---
Discharge Summary: Patient pleasant and cooperative. Afebrile. Denies pain. Tolerating regular diet with no nausea. PRN Imodium x2 for chronic diarrhea. O2 sats 88-91% on room air while at rest, updated MD. Sats decrease to 81% with activity on room air. 2L NC to keep sats at 90%. Patient discharged home at 1230 with all personal belongings accompanied by . Discharged with [facility] home O2. Discharge instructions including diagnosis, medications and follow up appointment discussed with patient and voiced understanding.
== END 2023-04-26 12:30 | disposition home or self-care (01) | DRG 189 ==
LOC: ED 15:47 → MEDSURG 16:06
PROVIDERS: Admitting Provider Family Medicine; Emergency Provider Family Medicine; Visit Provider Family Medicine
DX: J96.21 Acute and chronic respiratory failure with hypoxia (principal); I21.4 Non-ST elevation (NSTEMI) myocardial infarction; C18.1 Malignant neoplasm of appendix; K52.1 Toxic gastroenteritis and colitis; C78.6 Secondary malignant neoplasm of retroperitoneum and peritoneum; B44.1 Other pulmonary aspergillosis; E86.0 Dehydration; T45.1X5A Adverse effect of antineoplastic and immunosuppressive drugs, initial encounter; J47.9 Bronchiectasis, uncomplicated; Z79.52 Long term (current) use of systemic steroids
CPT/HCPCS: 36415; 51798; 71045; 71260; 80053; 82803; 83605; 84484; 85025; 85379; 86140; 87040; 87086; 87493; 93005; 93306; 94664; 94761; 99284; 99285; A9270; J0696; J1650; J1720; J2405; J7030; J7120; J7512; Q9967

== ENCOUNTER 2023-08-26 10:25 | Day surgery (SDC) | payer OTHER, SELFPAY ==
[2023-08-26] MEDS: TETRACAINE 0.5% OPHTH 1 DROP EYE-RIGHT ×2 (10:45→10:53)
[2023-08-26 10:52] VITALS: BMI 34.5
[2023-08-26 10:56] VITALS: BP 116/84; PULSE 88; RESP 20; TEMP 36.8; O2SAT 97
--- NOTE | 2023-08-26 10:59 | SUR.PREOP ---
The eye drops brought by the patient (Ketorolac and Prednisolone) are examined and I have determined they are labeled by the patient's pharmacy for this patient as prescribed by the surgeon. The bottles are intact, recently obtained and appear to be correct.
--- NOTE | 2023-08-26 10:59 | SUR.PREOP ---
pt abraided his left forarm on the handle of the bathroom. i cleaned it and wrapped it in kerlix gauze and filled out an [employer] report
[2023-08-26] MEDS: BALANCED SALT IRRIG SOLN 15 ML EYE-RIGHT (11:34)
[2023-08-26] MEDS: TETRACAINE 0.5% OPHTH 2 DROP EYE-RIGHT (11:35)
[2023-08-26] MEDS: TRYPAN BLUE 0.5 ML SYRINGE EYE-RIGHT (11:37)
[2023-08-26 12:00] VITALS: BP 143/87; PULSE 89; RESP 18; TEMP 37.2; O2SAT 95
--- NOTE | 2023-08-26 12:01 | W.ANESCHARGE ---
Anesthesia Charges Start Date/Time Anesthesia Start Date: 08/26/23 Anesthesia Start Time: 11:21 Stop Date/Time Anesthesia Stop Date: 08/26/23 Anesthesia Stop Time: 12:00
--- NOTE | 2023-08-26 12:04 | P.OPTPRC_ITS ---
Procedure Note Date of procedure: 08/26/23 Will [facility] bill your pro fee for this procedure?: Yes Procedure Description: Ignore this note, it is a duplicate. Op note already dictated. Thx.
--- NOTE | 2023-08-26 12:04 | W.PM.OPTPROC ---
Procedure Note Date of procedure: 08/26/23 Will [facility] bill your pro fee for this procedure?: Yes Procedure Description: Ignore this note, it is a duplicate. Op note already dictated. Thx.
--- NOTE | 2023-08-26 12:19 | W.ANESCHARGE ---
Anesthesia Charges Start Date/Time Anesthesia Start Date: 08/26/23 Anesthesia Start Time: 11:21 Stop Date/Time Anesthesia Stop Date: 08/26/23 Anesthesia Stop Time: 12:00
--- NOTE | 2023-08-26 12:47 | P.OPTPRC_ITS ---
Procedure Note Date of procedure: 08/26/23 Will [facility] bill your pro fee for this procedure?: Yes Procedure Description: SURGEON: Marbella Meek MD PREOPERATIVE DIAGNOSIS: Mature cataract, right eye. POSTOPERATIVE DIAGNOSIS: Mature cataract, right eye. NAME OF OPERATION: Phacoemulsification of cataract with posterior chamber intraocular lens implantation in the right eye with trypan blue. ANESTHESIA: Topical. ESTIMATED BLOOD LOSS: Less than 2 cc. COMPLICATIONS: None. PATHOLOGY SPECIMEN: None. INDICATIONS: See consult note for details. The risks, benefits and alternatives of the procedure were explained to the patient, who elected to proceed and signed informed consent to do so. PROCEDURE: The patient was brought to the pre-holding area where the right eye was identified as the operative eye. I placed my initials above this eye. The patient received eye drops consisting of 0.5% tetracaine, 1% tropicamide, 10% phenylephrine, and 0.5% ketorolac. The patient was then brought to the operating room where the left eye was again identified as the operative eye. The eye was prepped with Betadine and draped in the usual sterile ophthalmic fashion. A #15 super-sharp blade was used to create a paracentesis site. 1% non-preserved intracameral lidocaine was injected into the anterior chamber. An air bubble was injected into the anterior chamber. Trypan blue was injected posterior to the air bubble in order to stain the anterior capsule. Balanced salt solution was used to irrigate the anterior chamber. Endocoat was injected into the anterior chamber. A 2.4 mm keratome was used to create a three-plane self-sealing incision 1 mm anterior to the temporal limbus. A cystotome was used to create an anterior capsular leaflet. The Utrata forceps were used to extend this to form a continuous curvilinear capsulorrhexis. Hydrodissection was performed. The cataract was removed with phacoemulsification using the [id number] technique. The irrigation and aspiration tip was used to remove the remaining cortex. Healon was injected into the capsular bag. An MAREK ZCB00 intraocular lens of 21.0 diopters was injected into the capsular bag. The irrigation and aspiration tip was used to remove the remaining viscoelastic. Balanced salt solution on a cannula was used to hydrate the wound, and the wound was found to be watertight. The pupil was noted to be round. DISPOSITION: The patient was taken to the recovery room and discharged to home in stable condition. The patient was instructed to call me or go to the emergency department with any sudden change, including dramatic loss of vision, severe pain in the eye or eyebrow region, nausea, or vomiting. The patient will follow up in the clinic tomorrow morning.
== END 2023-08-26 12:25 | disposition home or self-care (01) ==
LOC: OR 10:25
PROVIDERS: PCP Internal Medicine; Visit Provider Ophthalmology
PROC: (CPT 66984; principal; 2023-08-26 10:30)
DX: H25.89 Other age-related cataract (principal)
CPT/HCPCS: 66984; 00142; 13121; 90471; 90715; 99283; A9270; J2250; J3010; V2632

== ENCOUNTER 2023-08-26 12:27 | Emergency (ER) | payer OTHER, SELFPAY ==
[2023-08-26 12:36] VITALS: BP 147/76; PULSE 88; RESP 20; TEMP 36.6; O2SAT 98; BMI 35.7
--- NOTE | 2023-08-26 14:20 | ED_ITS ---
HPI - Wound/Laceration General Time Seen by Provider: 14:20 Date Seen: 08/26/23 Chief Complaint: Laceration/Wound Stated Complaint: L arm lac Time Seen by Provider: 08/26/23 14:09 Source: patient and RN notes reviewed Mode of arrival: ambulatory Limitations: no limitations History of Present Illness HPI narrative: Patient is a 68-year-old male coming into the ER with a laceration on his left forearm. He was in the facility having cataract surgery this morning, caught his arm on a door and had a significant skin tear with laceration. He is unsure of his tetanus, we did look this up in his last tetanus was in November of 2013. Given that he is so close to being do, we have agreed upon updating this. Nothing else was injured. He does note that he was thin skin and will wound easily. Related Data Home Medications Medication Instructions Recorded Confirmed albuterol sulfate 90 mcg/actuation 2 puff inhalation Q6H PRN wheezing 04/24/23 08/26/23 aerosol inhaler (Ventolin HFA) fluticasone 500 mcg-salmeterol 50 1 inh inhalation BID 04/24/23 08/26/23 mcg/dose blistr powdr for inhalation (Advair Diskus) ondansetron HCl 8 mg tablet 8 mg PO Q8H PRN nausea/vomiting 04/24/23 08/12/23 prednisone 5 mg tablet 10 - 15 mg PO DAILY 04/24/23 08/26/23 prochlorperazine maleate 10 mg 10 mg PO Q6H PRN nausea/vomiting 04/24/23 08/26/23 tablet nebulizer and compressor #1 ea 08/12/23 08/12/23 (InnoSpire Essence device) Previous Rx's Medication Instructions Recorded loperamide 2 mg capsule 4 mg (2 x 2 mg) PO Q2H PRN loose 04/26/23 stool #60 caps furosemide 20 mg tablet (Lasix) 20 mg PO QAM PRN edema #30 tabs 05/22/23 Allergies Allergy/AdvReac Type Severity Reaction Status Date / Time No Known Drug Allergies Allergy Verified 08/12/23 08:03 Review of Systems Narrative: As per HPI. PFSH PFS Medical History Preop exam for internal medicine ?Z01.818 - Encounter for other preprocedural examination (ICD-10) Impingement syndrome of shoulder region ?M75.40 - Impingement syndrome of unspecified shoulder (ICD-10) Edema ?R60.9 - Edema, unspecified (ICD-10) Asthma ?J45.909 - Unspecified asthma, uncomplicated (ICD-10) Chronic steroid use Chronic pulmonary aspergillosis ?B44.1 - Other pulmonary aspergillosis (ICD-10) Goblet cell carcinoid ?C18.1 - Malignant neoplasm of appendix (ICD-10) Diarrhea (04/24/23) ?R19.7 - Diarrhea, unspecified (ICD-10) Surgical History History of abdominal surgery ?Z98.890 - Other specified postprocedural states (ICD-10) Hx of appendectomy ?Z90.49 - Acquired absence of other specified parts of digestive tract (ICD- 10) S/P right colectomy ?Z90.49 - Acquired absence of other specified parts of digestive tract (ICD- 10) Social History Narrative: Lives with Anca (Medical decision maker if needed) outside of [place], 3 adult children. Works for [employer]. Nonsmoker, social ETOH without any history of withdrawal. Requests Full Code status. What is your current living situation?: I presently have a place to live Problems where you live: no known problems Problems where you live details: NA In the past 12 months, utilities in danger of being shut off: no In past 12 months, lack of transportation kept you from medical appts, meetings, work, or getting things needed for daily living: no In the past 12 mos, have been you worried that your food would run out before you had money to buy more?: never true In the past 12 mos, the food you bought just didn't last and you didn't have money to buy more?: never true Smoking Status: Never smoker Do you use any of these nicotine containing products: None Second hand tobacco smoke exposure: No How often do you have a drink containing alcohol: 4 or more times a week How many standard drinks containing alcohol do you have on a typical day: 5 or 6 How often do you have six or more drinks on one occasion: Daily or almost daily AUDIT-C Alcohol total score: 10 Non-prescribed substance use: denies use Caffeine: No How often does anyone, including family, friends and others, physically hurt you : never How often does anyone, including family, friends and others, insult or talk down to you: never How often does anyone, including family, friends and others, threaten you with harm: never How often does anyone, including family, friends and others, scream or curse at you: never Little interest or pleasure in doing things: not at all Feeling down, depressed, or hopeless: not at all service: No Exam Const: Vital Signs, click to edit/add: Vital Signs - 24 hr 08/26/23 12:36 Temperature 97.9 F Pulse Rate [Right Pulse Oximeter] 88 Respiratory Rate 20 Blood Pressure [Ri ght Upper Arm] 147/76 H Pulse Oximetry 98 Oxygen Delivery Me thod Room Air 68-year-old male ambulatory into the ED is alert, interactive, no apparent distress. He has a bandage on his left forearm. This was removed. There is irregular skin tearing, wound extends through the subcutaneous tissue but not deeper. Wound edges are gaping due to lack of continuity of the subcutaneous tissue. There are irregular margins. Overall length is probably about 8 cm in an irregular fashion. It is not actively bleeding at this time. Documenting provider has reviewed patient's vital signs: yes Course Course ED Course: 10 mL of lidocaine with epinephrine was drawn up, this was infiltrated locally. Nursing staff then gently clean the wound. Standard sterile technique was observed, 3 deep sutures using 4-0 Vicryl were placed with reapproximation of this subcutaneous tissue and bringing the wound edges back together much better. The Vicryl stitches were horizontal mattress. Both ends of the wound were able to be approximated, 4 simple interrupted sutures were placed using 5 0 Ethilon. The piece of epidermis that was the skin tear was able to be laid back down over the subcutaneous tissue that was still open, patient had requested I cut the skin off. Reviewed with him that we wanted to leave this, does make best natural Band-Aid. The skin may ultimately diet but it does help with the underlying wound healing, recommend we leave it on and most of the underlying defect was covered with this piece of skin. There was actually much improved skin closure with the deep subcutaneous stitches and then the simple interrupted ones. Vital Signs Vital signs: Initial Vital Signs Temperature 97.9 F 08/26/23 12:36 Temperature Source Temporal Artery Scan 08/26/23 12:36 Pulse Rate 88 08/26/23 12:36 Respiratory Rate 20 08/26/23 12:36 Blood Pressure 147/76 H 08/26/23 12:36 Blood Pressure Mean 99 08/26/23 12:36 Blood Pressure Position Sitting 08/26/23 12:36 Pulse Oximetry 98 08/26/23 12:36 Oxygen Delivery Method Room Air 08/26/23 12:36 Vital Signs Temperature 97.9 F 08/26/23 12:36 Pulse Rate 88 08/26/23 12:36 Respiratory Rate 20 08/26/23 12:36 Blood Pressure 147/76 H 08/26/23 12:36 Pulse Oximetry 98 08/26/23 12:36 Oxygen Delivery Method Room Air 08/26/23 12:36 Temperature 97.9 F 08/26/23 12:36 Pulse Rate 88 08/26/23 12:36 Respiratory Rate 20 08/26/23 12:36 Blood Pressure 147/76 H 08/26/23 12:36 Pulse Oximetry 98 08/26/23 12:36 Oxygen Delivery Method Room Air 08/26/23 12:36 Discharge Plan Discharge Clinical Impression: Laceration of arm, left, complicated Patient Disposition: Home, Self-Care Condition: Stable Instructions: Laceration (ED), Skin Tear (ED) Additional Instructions: Bandage this wound daily with bacitracin and a nonstick bandage, some form of wrap around to hold bandaging in place. Will need to make a clinic follow-up in about 10 days to 2 weeks to have the superficial 4 sutures removed. The 3 deep sutures should dissolve on their own. If there is concern of infection, need to be re-evaluated. May shower but would otherwise keep this wound clean and dry until it is healed. When you do bandage changes, try to keep that piece of skin that is torn down on the arm. Activity Level: Activity as Tolerated Prescriptions: No Action (DME) nebulizer and compressor [InnoSpire Essence] Device See Rx Instructions .ROUTE .MEDSUPPLY Qty: 1 Patient Comments: [NO ORIGINAL SIG] Rx Instructions: As directed ondansetron HCl 8 mg tablet 8 mg PO Q8H PRN (Reason: nausea/vomiting) prednisone 5 mg tablet 10 - 15 mg PO DAILY Rx Instructions: ALTERNATE 10 AND 15 MG DAILY prochlorperazine maleate 10 mg tablet 10 mg PO Q6H PRN (Reason: nausea/vomiting) fluticasone propion-salmeterol [Advair Diskus] 500-50 mcg/dose blister with device 1 inh inhalation BID albuterol sulfate [Ventolin HFA] 90 mcg/actuation HFA aerosol inhaler 2 puff INHALATION Q6H PRN (Reason: wheezing) loperamide 2 mg capsule 4 mg PO Q2H PRN (Reason: loose stool) Qty: 60 0RF Rx Instructions: 2 tabs every 2-4 hours as needed for diarrhea furosemide [Lasix] 20 mg tablet 20 mg PO QAM PRN (Reason: edema) Qty: 30 2RF Follow Up/Referrals: Oliver Anne MD [Primary Care Provider] - Stand Alone Forms: [employer] Info Instructions
--- NOTE | 2023-08-26 14:36 | ED.NURSE ---
cleaned the wound with shurclens and is covered with 4x4.
[2023-08-26] MEDS: TETANUS/DIPHTH/PERTUSSIS 0.5 ML SYRINGE IM (15:16)
--- NOTE | 2023-08-26 15:25 | ED.NURSE ---
placed bacitracin to the wound, telfa, 4x4 and wrapped with kerlex then coban lightly to keep dressing in place better. sent home dressing supplies and went over signs of infection along with keeping wound clean and dry for 24 hours then wash with soap and water gently. 10-14 days to remove the sutures at the clinic.
== END 2023-08-26 15:39 | disposition home or self-care (01) ==
PROVIDERS: Emergency Provider Family Medicine; PCP Internal Medicine
DX: S51.812A Laceration without foreign body of left forearm, initial encounter (principal)
CPT/HCPCS: 13121; 90471; 90715; 99283

== ENCOUNTER 2023-09-09 10:01 | Day surgery (SDC) | payer OTHER, SELFPAY ==
[2023-09-09] MEDS: KETOROLAC OPHTH 0.5% 1 DROP EYE-LEFT ×3 (10:13→10:25)
[2023-09-09] MEDS: TETRACAINE 0.5% OPHTH 1 DROP EYE-LEFT ×2 (10:13→10:20)
[2023-09-09] MEDS: SODIUM CHLORIDE 0.9 % (FLUSH) 10 ML SYRINGE IVF (10:33)
[2023-09-09 10:46] VITALS: BP 134/75; PULSE 81; RESP 16; TEMP 36.5; O2SAT 98; BMI 34.5
[2023-09-09] MEDS: TETRACAINE 0.5% OPHTH 2 DROP EYE-LEFT (11:43)
[2023-09-09] MEDS: BALANCED SALT IRRIG SOLN 15 ML EYE-LEFT (11:50)
[2023-09-09 12:11] VITALS: BP 128/79; PULSE 85; RESP 18; TEMP 36.2; O2SAT 96
--- NOTE | 2023-09-09 12:14 | W.ANESCHARGE ---
Anesthesia Charges Start Date/Time Anesthesia Start Date: 09/09/23 Anesthesia Start Time: 11:41 Stop Date/Time Anesthesia Stop Date: 09/09/23 Anesthesia Stop Time: 12:14
--- NOTE | 2023-09-09 12:19 | W.ANESCHARGE ---
Anesthesia Charges Start Date/Time Anesthesia Start Date: 09/09/23 Anesthesia Start Time: 11:41 Stop Date/Time Anesthesia Stop Date: 09/09/23 Anesthesia Stop Time: 12:14
--- NOTE | 2023-09-09 12:34 | W.PM.OPTPROC ---
Procedure Note Date of procedure: 09/09/23 Will [facility] bill your pro fee for this procedure?: Yes Procedure Description: SURGEON: Marbella Meek MD PREOPERATIVE DIAGNOSIS: Mature cataract, left eye. POSTOPERATIVE DIAGNOSIS: Mature cataract, left eye. NAME OF OPERATION: Phacoemulsification of cataract with posterior chamber intraocular lens implantation in the left eye with trypan blue. ANESTHESIA: Topical. ESTIMATED BLOOD LOSS: Less than 2 cc. COMPLICATIONS: None. PATHOLOGY SPECIMEN: None. INDICATIONS: See consult note for details. The risks, benefits and alternatives of the procedure were explained to the patient, who elected to proceed and signed informed consent to do so. PROCEDURE: The patient was brought to the pre-holding area where the left eye was identified as the operative eye. I placed my initials above this eye. The patient received eye drops consisting of 0.5% tetracaine, 1% tropicamide, 10% phenylephrine, and 0.5% ketorolac. The patient was then brought to the operating room where the left eye was again identified as the operative eye. The eye was prepped with Betadine and draped in the usual sterile ophthalmic fashion. A #15 super-sharp blade was used to create a paracentesis site. 1% non-preserved intracameral lidocaine was injected into the anterior chamber. An air bubble was injected into the anterior chamber. Trypan blue was injected posterior to the air bubble in order to stain the anterior capsule. Balanced salt solution was used to irrigate the anterior chamber. Endocoat was injected into the anterior chamber. A 2.4 mm keratome was used to create a three-plane self-sealing incision 1 mm anterior to the temporal limbus. A cystotome was used to create an anterior capsular leaflet. The Utrata forceps were used to extend this to form a continuous curvilinear capsulorrhexis. Hydrodissection was performed. The cataract was removed with phacoemulsification using the [id number] technique. The irrigation and aspiration tip was used to remove the remaining cortex. Healon was injected into the capsular bag. An MAREK ZCB00 intraocular lens of 21.0 diopters was injected into the capsular bag. The irrigation and aspiration tip was used to remove the remaining viscoelastic. Balanced salt solution on a cannula was used to hydrate the wound, and the wound was found to be watertight. The pupil was noted to be round. DISPOSITION: The patient was taken to the recovery room and discharged to home in stable condition. The patient was instructed to call me or go to the emergency department with any sudden change, including dramatic loss of vision, severe pain in the eye or eyebrow region, nausea, or vomiting. The patient will follow up in the clinic tomorrow morning.
== END 2023-09-09 12:30 | disposition home or self-care (01) ==
LOC: OR 10:01
PROVIDERS: PCP Internal Medicine; Visit Provider Ophthalmology
PROC: (CPT 66984; principal; 2023-09-09 10:30)
DX: H25.89 Other age-related cataract (principal)
CPT/HCPCS: 66984; 00142; A9270; J2250; J3010; V2632

== ENCOUNTER 2023-09-23 07:02 | Inpatient (IN) | payer MEDICARE, BC, SELFPAY ==
[2023-09-23] VITALS (35 sets, daily range): BP systolic 112–137; BP diastolic 56–76; PULSE 85–121; RESP 20–38; TEMP 36.3–37.9; O2SAT 79–99; BMI 33.2; BMI 33.1
--- NOTE | 2023-09-23 07:46 | CRLHL7_ITS ---
For Patients: As a result of the Century Cures Act, medical imaging exams and procedure reports are released immediately into your electronic medical record. You may view this report before your referring provider. If you have questions, please contact your health care provider. INDICATION: Cough, fever. Goblet cell cancer TECHNIQUE: CT chest PE was acquired with 75 cc Isovue 370 IV contrast. COMPARISON: CT 04/24/2023. FINDINGS: Heart and vasculature: The heart is normal in size. No pericardial effusion. No evidence of right heart strain. Mildly enlarged main pulmonary artery. The thoracic aorta is normal in course and caliber without atherosclerotic calcifications of the aorta and coronary arteries. Aortic valve calcifications are also seen. Contrast opacification of the pulmonary arterial tree is adequate though there is mild respiratory motion. No pulmonary arteries detected. Lungs and pleura: Unchanged diffuse cystic bronchiectasis throughout both lungs. There is peripheral tree-in-bud/nodular airspace opacities throughout both lungs which are similar compared to 04/24/2023. Scattered areas of subsegmental consolidation predominantly within the right middle lobe and lingula. Previous area linear consolidation in the left upper lobe peripherally has resolved though there is a new area focal consolidation involving the medial left upper lobe. No pleural effusion or pneumothorax. Lymph nodes/mediastinum: Multiple enlarged mediastinal and hilar lymph nodes, which are increased in size compared to prior CT from 04/24/2023. For example a right lower paratracheal lymph node adjacent to the azygos vein measures 12 mm in short axis, previously 8 mm. Chest wall: Right internal jugular port tip is in the lower SVC. Upper abdomen: Chain suture material involving the hepatic flexure. Bones: Unremarkable for age. IMPRESSION: 1. No evidence of pulmonary embolism. 2. Similar diffuse cystic bronchiectasis throughout both lungs with areas of tree-in-bud nodular airspace opacities, which may be infectious or inflammatory in etiology. Scattered areas of subsegmental atelectasis, some of which are improved compared to 04/24/2023 and some are new. Differential considerations include subsegmental atelectasis though superimposed developing pneumonia is not excluded. 3. Increased mediastinal lymphadenopathy, which may be reactive versus related to the patient`s known goblet cell cancer. Please note that all CT scans at this facility use dose modulation, iterative reconstruction, and/or weight-based dosing when appropriate to reduce radiation dose to as low as reasonably achievable. Dictated by Francia Conklin MD @ 09/23/2023 9:47:46 AM (Electronically Signed)
--- NOTE | 2023-09-23 07:49 | ED_ITS ---
HPI - General Adult General Chief complaint: Shortness of Breath/Dyspnea Stated complaint: Short of breath- cancer PT Time Seen by Provider: 09/23/23 07:38 History of Present Illness HPI narrative: Patient is pleasant 68 year white male in for she has stomach cancer gets chemotherapy every 2 weeks. The patient reports this is a palliative type treatment. They report that his lungs in other issues or too sick to have additional surgery. The patient developed the last few days a significant cough fever he has chronic pulmonary aspergillosis. He is on oxygen at home intermittently. He runs in the low to mid 80s without oxygen. Today came in with an O2 sat of 74% off oxygen as his tube was kinked in the car. Patient describes some chills low-grade fever, productive cough of yellow-green sputum. No blood noted in his sputum. He has not any additional leg swelling or edema. Related Data Home Medications Medication Instructions Recorded Confirmed albuterol sulfate 90 mcg/actuation 2 puff inhalation Q6H PRN wheezing 04/24/23 09/23/23 aerosol inhaler (Ventolin HFA) fluticasone 500 mcg-salmeterol 50 1 inh inhalation BID 04/24/23 09/23/23 mcg/dose blistr powdr for inhalation (Advair Diskus) ondansetron HCl 8 mg tablet 8 mg PO Q8H PRN nausea/vomiting 04/24/23 09/23/23 prednisone 5 mg tablet 10 - 15 mg PO DAILY 04/24/23 09/23/23 prochlorperazine maleate 10 mg 10 mg PO Q6H PRN nausea/vomiting 04/24/23 09/23/23 tablet nebulizer and compressor #1 ea 08/12/23 08/12/23 (HoverWindoSpire Essence device) prednisolone acetate 1 % eye 1 drp ophthalmic (eye) QID 09/23/23 09/23/23 drops,suspension Previous Rx's Medication Instructions Recorded loperamide 2 mg capsule 4 mg (2 x 2 mg) PO Q2H PRN loose 04/26/23 stool #60 caps furosemide 20 mg tablet (Lasix) 20 mg PO QAM PRN edema #30 tabs 05/22/23 Allergies Allergy/AdvReac Type Severity Reaction Status Date / Time No Known Drug Allergies Allergy Verified 09/23/23 09:25 Review of Systems Status of ROS: Reports: 6 or more systems reviewed and unremarkable except as noted in History and below [facility] Medical History (Updated 09/23/23 @ 12:34 by Mary Marr MD) Laceration of arm, left, complicated ?S41.112A - Laceration without foreign body of left upper arm, initial encounter (ICD-10) Impingement syndrome of shoulder region ?M75.40 - Impingement syndrome of unspecified shoulder (ICD-10) Edema ?R60.9 - Edema, unspecified (ICD-10) Asthma ?J45.909 - Unspecified asthma, uncomplicated (ICD-10) Chronic steroid use Chronic pulmonary aspergillosis ?B44.1 - Other pulmonary aspergillosis (ICD-10) 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 Works for [employer]. Nonsmoker, social ETOH without any history of withdrawal. Requests Full Code status. What is your current living situation?: I presently have a place to live Problems where you live: no known problems Problems where you live details: NA In the past 12 months, utilities in danger of being shut off: no In past 12 months, lack of transportation kept you from medical appts, meetings, work, or getting things needed for daily living: no In the past 12 mos, have been you worried that your food would run out before you had money to buy more?: never true In the past 12 mos, the food you bought just didn't last and you didn't have money to buy more?: never true Smoking Status: Never smoker Do you use any of these nicotine containing products: None Second hand tobacco smoke exposure: No How often do you have a drink containing alcohol: 4 or more times a week How many standard drinks containing alcohol do you have on a typical day: 5 or 6 How often do you have six or more drinks on one occasion: Daily or almost daily AUDIT-C Alcohol total score: 10 Non-prescribed substance use: denies use Caffeine: No How often does anyone, including family, friends and others, physically hurt you : never How often does anyone, including family, friends and others, insult or talk down to you: never How often does anyone, including family, friends and others, threaten you with harm: never How often does anyone, including family, friends and others, scream or curse at you: never Little interest or pleasure in doing things: not at all Feeling down, depressed, or hopeless: not at all service: No Exam Narrative: Exam Narrative: Objective: Vital signs show temp 100.2? pulse 121 and regular her respiratory rate 20 and unlabored O2 sat 79% on room air, and he was 74%. Alert talkative in short sentences Noncyanotic Neck is supple HEENT otherwise unremarkable Chest is diminished air exchange rales at the bases Heart rhythm regular 2/6 systolic murmur occasional ectopic beat noted Abdomen benign he is obese benign nontender Extremities showed edema. Neurologic is grossly nonfocal. Const: Vital Signs, click to edit/add: Vital Signs - 24 hr 09/23/23 07:14 09/23/23 07:46 09/23/23 07:46 Temperature 100.2 F H Pulse Rate Pulse Rate [Pulse Oximeter] 121 H 116 H Respiratory Rate 20 38 H Blood Pressure Blood Pressure [Le ft Upper Arm] 124/71 132/65 Pulse Oximetry 79 L 79 L 95 Oxygen Delivery Me thod Room Air OxyMask Oxygen Flow Rate 6 09/23/23 08:00 09/23/23 08:15 09/23/23 08:28 Temperature Pulse Rate 112 H Pulse Rate [Pulse Oximeter] 112 H 112 H Respiratory Rate 22 24 Blood Pressure Blood Pressure [Le ft Upper Arm] 119/63 127/64 Pulse Oximetry 96 96 94 Oxygen Delivery Me thod OxyMask OxyMask Oxygen Flow Rate 09/23/23 08:30 09/23/23 08:30 09/23/23 08:32 Temperature Pulse Rate 113 H 112 H Pulse Rate [Pulse Oximeter] 112 H Respiratory Rate 25 H Blood Pressure 127/66 Blood Pressure [Le ft Upper Arm] 127/66 Pulse Oximetry 95 95 97 Oxygen Delivery Me thod OxyMask Oxygen Flow Rate 09/23/23 08:45 09/23/23 08:45 09/23/23 08:46 Temperature Pulse Rate 112 H 112 H Pulse Rate [Pulse Oximeter] 113 H Respiratory Rate 22 Blood Pressure 120/56 L Blood Pressure [Le ft Upper Arm] 120/56 L Pulse Oximetry 97 97 97 Oxygen Delivery Me thod OxyMask Oxygen Flow Rate 09/23/23 09:19 09/23/23 09:30 09/23/23 09:31 Temperature Pulse Rate 109 H 109 H 109 H Pulse Rate [Pulse Oximeter] Respiratory Rate Blood Pressure 137/67 Blood Pressure [Le ft Upper Arm] Pulse Oximetry 96 96 96 Oxygen Delivery Me thod Oxygen Flow Rate 09/23/23 09:45 09/23/23 10:00 09/23/23 10:01 Temperature Pulse Rate 109 H 108 H 109 H Pulse Rate [Pulse Oximeter] Respiratory Rate Blood Pressure 124/73 Blood Pressure [Le ft Upper Arm] Pulse Oximetry 96 98 99 Oxygen Delivery Me thod Oxygen Flow Rate 09/23/23 10:15 09/23/23 10:30 09/23/23 10:31 Temperature Pulse Rate 108 H 108 H 111 H Pulse Rate [Pulse Oximeter] Respiratory Rate Blood Pressure 124/70 Blood Pressure [Le ft Upper Arm] Pulse Oximetry 94 95 93 Oxygen Delivery Me thod Oxygen Flow Rate 09/23/23 10:45 09/23/23 11:00 09/23/23 11:01 Temperature Pulse Rate 114 H 109 H 108 H Pulse Rate [Pulse Oximeter] Respiratory Rate Blood Pressure 131/75 Blood Pressure [Le ft Upper Arm] Pulse Oximetry 89 95 95 Oxygen Delivery Me thod Oxygen Flow Rate 09/23/23 11:15 09/23/23 11:31 09/23/23 11:32 Temperature Pulse Rate 106 H 108 H 107 H Pulse Rate [Pulse Oximeter] Respiratory Rate Blood Pressure 124/61 Blood Pressure [Le ft Upper Arm] Pulse Oximetry 94 93 94 Oxygen Delivery Me thod Oxygen Flow Rate 09/23/23 11:45 09/23/23 12:00 09/23/23 12:01 Temperature Pulse Rate 106 H 109 H 107 H Pulse Rate [Pulse Oximeter] Respiratory Rate Blood Pressure 113/66 Blood Pressure [Le ft Upper Arm] Pulse Oximetry 92 93 93 Oxygen Delivery Me thod Oxygen Flow Rate 09/23/23 12:15 09/23/23 12:30 09/23/23 12:31 Temperature Pulse Rate 107 H 108 H 105 H Pulse Rate [Pulse Oximeter] Respiratory Rate Blood Pressure 112/68 Blood Pressure [Le ft Upper Arm] Pulse Oximetry 94 94 94 Oxygen Delivery Me thod Oxygen Flow Rate 09/23/23 12:45 Temperature Pulse Rate 103 H Pulse Rate [Pulse Oximeter] Respiratory Rate Blood Pressure Blood Pressure [Le ft Upper Arm] Pulse Oximetry 94 Oxygen Delivery Me thod Oxygen Flow Rate Course Vital Signs Vital signs: Initial Vital Signs Temperature 100.2 F H 09/23/23 07:14 Temperature Source Temporal Artery Scan 09/23/23 07:14 Pulse Rate 121 H 09/23/23 07:14 Respiratory Rate 20 09/23/23 07:14 Blood Pressure 124/71 09/23/23 07:14 Blood Pressure Mean 88 09/23/23 07:14 Blood Pressure Position Sitting 09/23/23 07:14 Pulse Oximetry 79 L 09/23/23 07:14 Oxygen Delivery Method Room Air 09/23/23 07:14 Vital Signs Temperature 100.2 F H 09/23/23 07:14 Pulse Rate 121 H 09/23/23 07:14 Respiratory Rate 20 09/23/23 07:14 Blood Pressure 124/71 09/23/23 07:14 Pulse Oximetry 79 L 09/23/23 07:14 Oxygen Delivery Method Room Air 09/23/23 07:14 Temperature 100.2 F H 09/23/23 07:14 Pulse Rate 103 H 09/23/23 12:45 Respiratory Rate 22 09/23/23 08:45 Blood Pressure 112/68 09/23/23 12:31 Pulse Oximetry 94 09/23/23 12:45 Oxygen Delivery Method OxyMask 09/23/23 08:45 Oxygen Flow Rate 6 09/23/23 07:46 Medications Administered Medications: Discontinued Medications Generic Name Dose Route Start Last Admin Trade Name Freq PRN Reason Stop Dose Admin Acetaminophen 1,000 mg 09/23/23 10:29 09/23/23 11:07 Acetaminophen 500 Mg Tablet PO 09/23/23 10:30 1,000 mg ONCE ONE Administration Aspirin 324 mg 09/23/23 10:41 09/23/23 11:08 Aspirin 81 Mg Tab.Chew PO 09/23/23 10:42 Not Given ONCE ONE Furosemide 20 mg 09/23/23 12:34 09/23/23 12:47 Furosemide 10 Mg/Ml Inj IVP 09/23/23 12:35 20 mg ONCE ONE Administration Sodium Chloride 500 mls @ 500 mls/hr 09/23/23 07:45 09/23/23 09:26 0.9 % Sodium Chloride 500 Ml IV 09/23/23 08:44 Infused .Q1H ONE Infusion Levofloxacin 500 mg 09/23/23 09:53 09/23/23 10:05 Levofloxacin 500 Mg Tablet PO 09/23/23 09:54 500 mg ONCE ONE Administration Ondansetron HCl 8 mg 09/23/23 10:41 09/23/23 10:55 Ondansetron Odt 4 Mg Tab PO 09/23/23 10:42 8 mg ONCE ONE Administration Medical Decision Making [facility] Narrative Medical decision making narrative: 68-year-old male with fever chills cough productive history of chronic pulmonary aspergillosis. History of COPD. Patient this point needs oxygen, will get a CT scan to rule out PE rule out pneumonia. Will get laboratory studies including blood culture, will check viral studies. Patient likely need hospitalization with antibiotics probably steroids. Check his cardiac status as well as BNP. Addendum 9:[address] scan of the chest shows no pulmonary embolism, he does have areas of chronic bronchiectasis, there may be some developing pneumonia. I think given his clinical situation , antibiotics, hospitalization, oxygen, monitoring would be appropriate. Will discuss with hospitalist. Lab Data Labs: Lab Results 09/23/23 Range/Units 07:40 WBC 3.87 L (4.50-11.00) K/uL RBC 3.80 L (4.30-5.90) m/uL Hgb 12.2 L (13.5-17.5) gm/dL Hct 38.8 (37.0-53.0) % MCV 102 H (80-100) fL MCH 32 (26-34) pg MCHC 31 L (32-36) gm/dL RDW Coeff of Oma 13.1 (11.5-15.5) % Plt Count 275 (140-440) K/uL Neut % (Auto) 72.3 H (42.0-72.0) % Lymph % (Auto) 15.0 L (20-44) % [place] % (Auto) 10.1 (0.0-11.0) % Eos % (Auto) 1.8 (0.0-7.0) % Baso % (Auto) 0.5 (0.0-3.0) % Neut # (Auto) 2.80 (1.7-7.0) K/uL Lymph # (Auto) 0.60 L (0.90-2.90) K/uL [place] # (Auto) 0.40 (0.00-0.90) K/UL Eos # (Auto) 0.10 (0.00-0.50) K/uL Baso # (Auto) 0.00 (0.00-0.30) K/uL Abs Immat Gran (auto) 0.00 (0.00-0.30) K/uL Imm/Tot Granulo (auto) 0.3 % INR 1.03 (0.91-1.10) VBG pH 7.443 H (7.32-7.43) VBG pCO2 47 (40-50) mmHG VBG pO2 53.9 H (25-47) mmHG VBG HCO3 32 H (21-28) mmol/L Sodium 134 L (135-149) mmol/L Potassium 4.0 (3.6-5.1) mmol/L Chloride 95 L (96-114) mmol/L Carbon Dioxide 31 (20-32) mmol/L Anion Gap 8 (7-15) mEq/L BUN 14 (7-30) mg/dL Creatinine 1.0 (0.5-1.5) mg/dL Estimated Creat Clear 72.66 Estimated GFR 83 ml/min Glucose 101 (60-115) mg/dL Lactate 0.9 (0.5-1.9) mmol/L Calcium 9.1 (8.4-10.6) mg/dL Troponin I < 0.01 L (0.01-0.04) ng/mL C-Reactive Protein 17.1 H (0.5-1.0) mg/dL NT-Pro-B Natriuret Pep 446 pg/mL SARS-CoV-2 (PCR) Negative SARS-CoV-2 (Negative) Influenza Type A (PCR) Negative PCR FLU A (Negative) Influenza Type B (PCR) Negative PCR FLU B (Negative) RSV (PCR) Negative PCR RSV (Negative) Discharge Plan Discharge Clinical Impression: Fever, Cancer of stomach, Cough, Hypoxia
[2023-09-23 07:59] LABS: Lactate* 0.9 mmol/L (0.5-1.9)
[2023-09-23] MEDS: 0.9 % SODIUM CHLORIDE 500 ML 500 ML IV (08:02)
[2023-09-23 08:03] LABS: Basophils Percent Auto 0.5 % (0.0-3.0); Eosinophils Percent Auto 1.8 % (0.0-7.0); Hematocrit 38.8 % (37.0-53.0); Hemoglobin* 12.2 gm/dL (13.5-17.5); Immature Granulocytes Pct Auto 0.3 %; Mean Corpuscular HGB Conc 31 gm/dL (32-36); Mean Corpuscular Hemoglobin 32 pg (26-34); Mean Corpuscular Volume 102 fL (80-100); Monocytes Percent Auto 10.1 % (0.0-11.0); Neutrophils Percent Auto 72.3 % (42.0-72.0); Platelet Count* 275 K/uL (140-440); RDW Coefficient of Variation % 13.1 % (11.5-15.5); White Blood Count* 3.87 K/uL (4.50-11.00)
[2023-09-23 08:12] LABS: HCO3 VBG 32 mmol/L (21-28); PCO2 VBG 47 mmHG (40-50); PO2 VBG 53.9 mmHG (25-47); pH VBG 7.443 (7.32-7.43)
[2023-09-23 08:18] LABS: Slide Review Reflex No
[2023-09-23 08:28] LABS: Chloride* 95 mmol/L (96-114); Sodium* 134 mmol/L (135-149)
[2023-09-23 08:29] LABS: INR 1.03 (0.91-1.10); Prothrombin Time 14.1 Seconds
[2023-09-23 08:30] LABS: Est. Creatinine Clearance* 72.66; Estimated Glomerular Filt Rate 83 ml/min
[2023-09-23 08:31] LABS: Anion Gap 8 mEq/L (7-15); Blood Urea Nitrogen* 14 mg/dL (7-30); Calcium* 9.1 mg/dL (8.4-10.6); Carbon Dioxide* 31 mmol/L (20-32); Glucose* 101 mg/dL (60-115)
[2023-09-23 08:50] LABS: NT Pro B Type NatriureticPept* 446 pg/mL; Troponin I* < 0.01 ng/mL (0.01-0.04)
[2023-09-23 09:01] LABS: PCR FLU A Negative PCR FLU A (Negative); PCR FLU B Negative PCR FLU B (Negative); PCR RSV Negative PCR RSV (Negative)
[2023-09-23 09:02] LABS: SARS PCR* Negative SARS-CoV-2 (Negative)
[2023-09-23 09:08] LABS: C Reactive Protein* 17.1 mg/dL (0.5-1.0)
[2023-09-23] MEDS: levoFLOXacin 500 MG TABLET PO (10:05)
[2023-09-23] MEDS: ONDANSETRON ODT 4 MG TAB 8 MG PO (10:55)
[2023-09-23] MEDS: ACETAMINOPHEN 500 MG TABLET 1000 MG PO (11:07)
--- NOTE | 2023-09-23 12:28 | PM.IMHP1 ---
Hospitalist- H&P: HPI History of Present Illness Date Seen: 09/23/23 Chief complaint: Short of breath- cancer PT Narrative: Carrillo Stearns is a 68 year old male who presented to the ER with his this morning for a 2-3 day history of feeling poorly. He's noted more dyspnea, decreased energy, worsening hypoxia (low 70%s on RA, typically wears 1-2L NC at home with activity). Started Amoxicillin at home on 09/21, bumped up his prednisone from 20mg QOD to 20mg daily, noted no improvement. notes that Don looked like a wet noodle this morning, and brought him in. No chest pain, mild LE edema, but doesn't feel like he's as fluid overloaded as he's been in the past. ER Course and Findings: - negative Influenza, COVID, RSV - Given 500mg of Levofloxacin orally - BNP, troponin wnl - Tmax 100.2 - CT scan of chest: negative for PE, diffuse cystic bronchiectasis, subsegmental atelectasis (developing PNA not excluded), mediastinal lymphadenopathy Histories updated below. PCP is Dr. Anne at [facility]. 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 (ICD-10) Chronic pulmonary aspergillosis ?B44.1 - Other pulmonary aspergillosis (ICD-10) Chronic steroid use Impingement syndrome of shoulder region ?M75.40 - Impingement syndrome of unspecified shoulder (ICD-10) Laceration of arm, left, complicated ?S41.112A - Laceration without foreign body of left upper arm, initial encounter (ICD-10) Edema ?R60.9 - Edema, unspecified (ICD-10) Asthma ?J45.909 - Unspecified asthma, uncomplicated (ICD-10) Diarrhea (04/24/23) ?R19.7 - Diarrhea, unspecified (ICD-10) Surgical History History of abdominal surgery ?Z98.890 - Other specified postprocedural states (ICD-10) Hx of appendectomy ?Z90.49 - Acquired absence of other specified parts of digestive tract (ICD-10) S/P right colectomy ?Z90.49 - Acquired absence of other specified parts of digestive tract (ICD-10) Social History (Updated 09/23/23 @ 14:15 by Mary Marr MD) Narrative: Lives with Anca (Medical decision maker if needed) outside of [place], 3 adult children. Has worked for [employer]. Nonsmoker, social ETOH without any history of withdrawal. Requests to not be intubated, trial of CPR okay. What is your current living situation?: I presently have a place to live Problems where you live: no known problems Problems where you live details: NA In the past 12 months, utilities in danger of being shut off: no In past 12 months, lack of transportation kept you from medical appts, meetings, work, or getting things needed for daily living: no In the past 12 mos, have been you worried that your food would run out before you had money to buy more?: never true In the past 12 mos, the food you bought just didn't last and you didn't have money to buy more?: never true Smoking Status: Never smoker Do you use any of these nicotine containing products: None Second hand tobacco smoke exposure: No How often do you have a drink containing alcohol: 4 or more times a week How many standard drinks containing alcohol do you have on a typical day: 5 or 6 How often do you have six or more drinks on one occasion: Daily or almost daily AUDIT-C Alcohol total score: 10 Non-prescribed substance use: denies use Caffeine: No How often does anyone, including family, friends and others, physically hurt you: never How often does anyone, including family, friends and others, insult or talk down to you: never How often does anyone, including family, friends and others, threaten you with harm: never How often does anyone, including family, friends and others, scream or curse at you: never Little interest or pleasure in doing things: not at all Feeling down, depressed, or hopeless: not at all service: No Meds Home Medications and Allergies Home Medications Medication Instructions Recorded Confirmed Type albuterol sulfate 90 mcg/actuation 2 puff inhalation Q6H PRN wheezing 04/24/23 09/23/23 History aerosol inhaler (Ventolin HFA) fluticasone 500 mcg-salmeterol 50 1 inh inhalation BID 04/24/23 09/23/23 History mcg/dose blistr powdr for inhalation (Advair Diskus) ondansetron HCl 8 mg tablet 8 mg PO Q8H PRN nausea/vomiting 04/24/23 09/23/23 History prednisone 5 mg tablet 10 - 15 mg PO DAILY 04/24/23 09/23/23 History prochlorperazine maleate 10 mg 10 mg PO Q6H PRN nausea/vomiting 04/24/23 09/23/23 History tablet nebulizer and compressor #1 ea 08/12/23 08/12/23 History (qianchengwuyouoSpire Essence device) prednisolone acetate 1 % eye 1 drp ophthalmic (eye) QID 09/23/23 09/23/23 History drops,suspension Allergies Allergy/AdvReac Type Severity Reaction Status Date / Time No Known Drug Allergies Allergy Verified 09/23/23 09:25 Exam Narrative: Exam Narrative: GEN: Alert and oriented, answering questions appropriately, intermittent wet cough during visit, 3-5 word dyspnea HEENT: EOMIs bilaterally, no scleral icterus CV: Sinus tachycardia (HR in 100s during my exam), no concerning murmurs R: Expiratory wheezing bilateral apices, bibasilar rhonchi Ext: 3+ edema B feet Skin: No concerning skin lesions or rashes on exposed skin Neuro: No focal deficits Psych: Appropriate Const: Vital Signs, click to edit/add: Vital Signs - 24 hr 09/23/23 07:14 09/23/23 07:46 09/23/23 07:46 Temperature 100.2 F H Pulse Rate Pulse Rate [Pulse Oximeter] 121 H 116 H Respiratory Rate 20 38 H Blood Pressure Blood Pressure [Le ft Upper Arm] 124/71 132/65 Pulse Oximetry 79 L 79 L 95 Oxygen Delivery Me thod Room Air OxyMask Oxygen Flow Rate 6 09/23/23 08:00 09/23/23 08:15 09/23/23 08:28 Temperature Pulse Rate 112 H Pulse Rate [Pulse Oximeter] 112 H 112 H Respiratory Rate 22 24 Blood Pressure Blood Pressure [Le ft Upper Arm] 119/63 127/64 Pulse Oximetry 96 96 94 Oxygen Delivery Me thod OxyMask OxyMask Oxygen Flow Rate 09/23/23 08:30 09/23/23 08:30 09/23/23 08:32 Temperature Pulse Rate 113 H 112 H Pulse Rate [Pulse Oximeter] 112 H Respiratory Rate 25 H Blood Pressure 127/66 Blood Pressure [Le ft Upper Arm] 127/66 Pulse Oximetry 95 95 97 Oxygen Delivery Me thod OxyMask Oxygen Flow Rate 09/23/23 08:45 09/23/23 08:45 09/23/23 08:46 Temperature Pulse Rate 112 H 112 H Pulse Rate [Pulse Oximeter] 113 H Respiratory Rate 22 Blood Pressure 120/56 L Blood Pressure [Le ft Upper Arm] 120/56 L Pulse Oximetry 97 97 97 Oxygen Delivery Me thod OxyMask Oxygen Flow Rate 09/23/23 09:19 09/23/23 09:30 09/23/23 09:31 Temperature Pulse Rate 109 H 109 H 109 H Pulse Rate [Pulse Oximeter] Respiratory Rate Blood Pressure 137/67 Blood Pressure [Le ft Upper Arm] Pulse Oximetry 96 96 96 Oxygen Delivery Me thod Oxygen Flow Rate 09/23/23 09:45 09/23/23 10:00 09/23/23 10:01 Temperature Pulse Rate 109 H 108 H 109 H Pulse Rate [Pulse Oximeter] Respiratory Rate Blood Pressure 124/73 Blood Pressure [Le ft Upper Arm] Pulse Oximetry 96 98 99 Oxygen Delivery Me thod Oxygen Flow Rate 09/23/23 10:15 09/23/23 10:30 09/23/23 10:31 Temperature Pulse Rate 108 H 108 H 111 H Pulse Rate [Pulse Oximeter] Respiratory Rate Blood Pressure 124/70 Blood Pressure [Le ft Upper Arm] Pulse Oximetry 94 95 93 Oxygen Delivery Me thod Oxygen Flow Rate 09/23/23 10:45 09/23/23 11:00 09/23/23 11:01 Temperature Pulse Rate 114 H 109 H 108 H Pulse Rate [Pulse Oximeter] Respiratory Rate Blood Pressure 131/75 Blood Pressure [Le ft Upper Arm] Pulse Oximetry 89 95 95 Oxygen Delivery Me thod Oxygen Flow Rate 09/23/23 11:15 Temperature Pulse Rate 106 H Pulse Rate [Pulse Oximeter] Respiratory Rate Blood Pressure Blood Pressure [Le ft Upper Arm] Pulse Oximetry 94 Oxygen Delivery Me thod Oxygen Flow Rate Hospitalist - H&P: Result Labs Labs: Short CBC 09/23/23 Range/Units 07:40 WBC 3.87 L (4.50-11.00) K/uL Hgb 12.2 L (13.5-17.5) gm/dL Hct 38.8 (37.0-53.0) % Plt Count 275 (140-440) K/uL BMP 09/23/23 07:40 Sodium 134 L Potassium 4.0 Chloride 95 L Carbon Dioxide 31 BUN 14 Creatinine 1.0 Glucose 101 Calcium 9.1 Cardiac Enzymes 09/23/23 Range/Units 07:40 Troponin I < 0.01 L (0.01-0.04) ng/mL Assessment and Plan Assessment and plan (1) Acute on chronic respiratory failure with hypoxia: Problem comment: - ddx: acute bacterial infection, viral illness, flare of aspergillosis - high risk for complications given comorbidities and immunosuppressed status - continue Levofloxacin (13), increase Prednisone to 60mg Qd (09/23), continue home medications and supplemental oxygen, RT referral Status: Chronic (2) 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 Follows with Oncology at [facility]. Status: Acute (3) Chronic pulmonary aspergillosis: Problem comment: - on chronic steroid therapy, follows with Pulmonology at [facility] Status: Chronic Plan - per above - DNI status requested - Lovenox, SCDs, Shimon chavarriae, po intake, PPI for prophylaxis - updated at bedside, questions answered
[2023-09-23] MEDS: FUROSEMIDE 10 MG/ML inj 20 MG IVP (12:47)
--- NOTE | 2023-09-23 13:03 | ED.NURSE ---
given report to Virginie Saenz who will resume care of this patient. plan to move room 283 via wc with O2 on at 3 liters via nc. Up to the bathroom to void.
[2023-09-23] MEDS: predniSONE 20 MG TABLET 60 MG PO (15:21)
--- NOTE | 2023-09-23 16:50 | RESP.RT ---
Pt seen. He reports not being short of breath, but looks uncomfortable. On 3L NC, he is saturating at 95%. He does have home oxygen and oximeter. Upper airways with expiratory wheezing, Lower lobe with musical Rhonchi and Crackles. Would start Albuterol nebs to see if any relief. Consider sputum culture. If unable to obtain, may need to think about a bronchoscopy.
[2023-09-23] MEDS: PROCHLORPERAZINE 10 MG TABLET PO (17:47)
[2023-09-23] MEDS: prednisoLONE acetate 1 % DROPS 1 DROP EYE-LEFT (21:37)
[2023-09-23] MEDS: SODIUM CHLORIDE 0.9 % (FLUSH) 10 ML SYRINGE 5 ML IVF (21:38)
[2023-09-23] MEDS: ALBUTEROL INHALER 2 PUFF IH (22:13)
[2023-09-24 03:00] VITALS: BP 148/87; PULSE 84; RESP 22; TEMP 36.2; O2SAT 94
--- NOTE | 2023-09-24 06:09 | PC.NURSE ---
Shift note: Pt is afebrile overnight, voiding, weight loss approximately 2 lb. Frequent wet cough, independent in the room
[2023-09-24] MEDS: OMEPRAZOLE 20 MG CAPSULE DR PO (06:33)
[2023-09-24] MEDS: FLUTICASONE PROPION SALMETEROL IH (06:33)
[2023-09-24 07:00] VITALS: BP 121/71; PULSE 84; PULSE 87; PULSE 92; RESP 22; TEMP 36.3; O2SAT 95; O2SAT 96
[2023-09-24 07:26] LABS: HCO3 VBG 36 mmol/L (21-28); PO2 VBG 50.8 mmHG (25-47)
[2023-09-24 07:30] LABS: PCO2 VBG 68 mmHG (40-50)
[2023-09-24 07:32] LABS: Basophils Absolute Auto 0.01 K/uL (0.00-0.30); Basophils Percent Auto 0.2 % (0.0-3.0); Hematocrit 36.3 % (37.0-53.0); Hemoglobin* 11.3 gm/dL (13.5-17.5); Immature Granulocytes Abs Auto 0.02 K/uL (0.00-0.30); Immature Granulocytes Pct Auto 0.3 %; Lymphocytes Percent Auto 6.9 % (20-44); Mean Corpuscular HGB Conc 31 gm/dL (32-36); Mean Corpuscular Hemoglobin 32 pg (26-34); Mean Corpuscular Volume 103 fL (80-100); Monocytes Percent Auto 8.4 % (0.0-11.0); Neutrophils Percent Auto 84.2 % (42.0-72.0); Platelet Count* 293 K/uL (140-440); Red Blood Count 3.53 m/uL (4.30-5.90); White Blood Count* 6.09 K/uL (4.50-11.00)
[2023-09-24 07:34] LABS: Slide Review Reflex No
[2023-09-24 08:17] LABS: Thyroid Stimulating Hormone* 0.671 uIU/mL (0.270-4.20)
[2023-09-24 08:31] LABS: Albumin* 3.7 g/dL (3.3-5.0); Chloride* 95 mmol/L (96-114); Potassium* 4.7 mmol/L (3.6-5.1); Sodium* 135 mmol/L (135-149)
[2023-09-24 08:33] LABS: Anion Gap 7 mEq/L (7-15); Bilirubin Total* 0.5 mg/dL (0.1-1.5); Carbon Dioxide* 33 mmol/L (20-32); Creatinine* 0.8 mg/dL (0.5-1.5); Est. Creatinine Clearance* 72.66; Estimated Glomerular Filt Rate 98 ml/min
[2023-09-24 08:34] LABS: Alanine Aminotransferase* 24 U/L (4-50); Alkaline Phosphatase* 69 U/L (40-150); Aspartate Amino Transferase* 22 U/L (12-35); Blood Urea Nitrogen* 17 mg/dL (7-30); Calcium* 8.7 mg/dL (8.4-10.6); Glucose* 120 mg/dL (60-115); Total Protein* 6.5 g/dL (6.0-8.3)
[2023-09-24] MEDS: predniSONE 20 MG TABLET 60 MG PO (08:50)
[2023-09-24] MEDS: prednisoLONE acetate 1 % DROPS 1 DROP EYE-LEFT ×2 (08:50→16:31)
[2023-09-24] MEDS: SODIUM CHLORIDE 0.9 % (FLUSH) 10 ML SYRINGE 5 ML IVF (08:50)
[2023-09-24] MEDS: levoFLOXacin 500 MG TABLET PO (08:50)
--- NOTE | 2023-09-24 09:33 | PM.IMPN1 ---
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 Follows with Oncology at [facility] - currently having chemotherapy every other week, last treatment 09/16 Status: Acute (3) Chronic pulmonary aspergillosis: Problem details: - on chronic steroid therapy, follows with Pulmonology at [facility] Status: Chronic Plan - per above - okay to d/c telemetry today given reassuring cardiac status - likely home tomorrow (09/25) if continues to improve - updated at bedside, questions answered Subjective Date Seen: 09/24/23 Interval history: Antolin was admitted to the hospital on 09/24/23 for cough, acute on chronic hypoxic respiratory failure, fatigue. High dose Prednisone and Levaquin initiated, also treated with Lasix. Today, he is feeling a little better. HR has come down, he has remained afebrile, oxygen needs have decreased. He was able to get up and perform morning ADLs, still dyspneic during this. Exam Narrative: Exam Narrative: GEN: Alert and sitting up in bed HEENT: EOMIs bilaterally, no scleral icterus CV: RRR, No concerning murmurs R: Wheezing bilateral apices, bibasilar rhonchi, air movement decreased but improved from admission Ext: wwp, bilateral food edema from admission has resolved Neuro: No focal deficits, no resting tremor Psych: Appropriate Const: Vital Signs, click to edit/add: Vital Signs - 24 hr 09/23/23 09:45 09/23/23 10:00 09/23/23 10:01 Temperature Pulse Rate 109 H 108 H 109 H Pulse Rate [Right Radial] Respiratory Rate Blood Pressure 124/73 Blood Pressure [Ri ght Arm] Pulse Oximetry 96 98 99 Oxygen Delivery Me thod Oxygen Flow Rate 09/23/23 10:15 09/23/23 10:30 09/23/23 10:31 Temperature Pulse Rate 108 H 108 H 111 H Pulse Rate [Right Radial] Respiratory Rate Blood Pressure 124/70 Blood Pressure [Ri ght Arm] Pulse Oximetry 94 95 93 Oxygen Delivery Me thod Oxygen Flow Rate 09/23/23 10:45 09/23/23 11:00 09/23/23 11:01 Temperature Pulse Rate 114 H 109 H 108 H Pulse Rate [Right Radial] Respiratory Rate Blood Pressure 131/75 Blood Pressure [Ri ght Arm] Pulse Oximetry 89 95 95 Oxygen Delivery Me thod Oxygen Flow Rate 09/23/23 11:15 09/23/23 11:31 09/23/23 11:32 Temperature Pulse Rate 106 H 108 H 107 H Pulse Rate [Right Radial] Respiratory Rate Blood Pressure 124/61 Blood Pressure [Ri ght Arm] Pulse Oximetry 94 93 94 Oxygen Delivery Me thod Oxygen Flow Rate 09/23/23 11:45 09/23/23 12:00 09/23/23 12:01 Temperature Pulse Rate 106 H 109 H 107 H Pulse Rate [Right Radial] Respiratory Rate Blood Pressure 113/66 Blood Pressure [Ri ght Arm] Pulse Oximetry 92 93 93 Oxygen Delivery Me thod Oxygen Flow Rate 09/23/23 12:15 09/23/23 12:30 09/23/23 12:31 Temperature Pulse Rate 107 H 108 H 105 H Pulse Rate [Right Radial] Respiratory Rate Blood Pressure 112/68 Blood Pressure [Ri ght Arm] Pulse Oximetry 94 94 94 Oxygen Delivery Me thod Oxygen Flow Rate 09/23/23 12:45 09/23/23 13:48 09/23/23 13:48 Temperature 97.6 F Pulse Rate 103 H Pulse Rate [Right Radial] 105 H Respiratory Rate 26 H Blood Pressure Blood Pressure [Ri ght Arm] 124/76 Pulse Oximetry 94 93 93 Oxygen Delivery Me thod Nasal Cannula Nasal Cannula Oxygen Flow Rate 3 3 09/23/23 14:42 09/23/23 14:42 09/23/23 19:00 Temperature 97.6 F 97.4 F L Pulse Rate 100 Pulse Rate [Right Radial] 95 Respiratory Rate 22 Blood Pressure Blood Pressure [Ri ght Arm] 128/71 Pulse Oximetry 98 Oxygen Delivery Me thod Nasal Cannula Oxygen Flow Rate 3 09/23/23 23:00 09/23/23 23:00 09/23/23 23:00 Temperature Pulse Rate 88 Pulse Rate [Right Radial] 85 Respiratory Rate 22 22 Blood Pressure Blood Pressure [Ri ght Arm] Pulse Oximetry 98 Oxygen Delivery Me thod Nasal Cannula Oxygen Flow Rate 2.5 09/23/23 23:00 09/24/23 03:00 09/24/23 07:00 Temperature 97.6 F 97.2 F L Pulse Rate Pulse Rate [Right Radial] 85 84 84 Respiratory Rate 22 22 22 Blood Pressure [facility] 117/75 148/87 H Pulse Oximetry 98 94 Oxygen Delivery Me thod Nasal Cannula Nasal Cannula Oxygen Flow Rate 2.5 2.5 09/24/23 07:00 09/24/23 07:00 Temperature 97.3 F L Pulse Rate Pulse Rate [Right Radial] 87 Respiratory Rate 22 22 Blood Pressure Blood [facility] 121/71 Pulse Oximetry 95 96 Oxygen Delivery Me thod Nasal Cannula Nasal Cannula Oxygen Flow Rate 2 2 Labs Labs: Laboratory Results - last 24 hr 09/24/23 07:00 WBC 6.09 RBC 3.53 L Hgb 11.3 L Hct 36.3 L MCV 103 H MCH 32 MCHC 31 L RDW Coeff of Oma 13.0 Plt Count 293 Neut % (Auto) 84.2 H Lymph % (Auto) 6.9 L [place] % (Auto) 8.4 Eos % (Auto) 0.0 Baso % (Auto) 0.2 Neut # (Auto) 5.10 Lymph # (Auto) 0.40 L [place] # (Auto) 0.50 Eos # (Auto) 0.00 Baso # (Auto) 0.01 Abs Immat Gran (auto) 0.02 Imm/Tot Granulo (auto) 0.3 VBG pH 7.330 VBG pCO2 68 H* VBG pO2 50.8 H VBG HCO3 36 H Sodium 135 Potassium 4.7 Chloride 95 L Carbon Dioxide 33 H Anion Gap 7 BUN 17 Creatinine 0.8 Estimated Creat Clear 72.66 Estimated GFR 98 Glucose 120 H Calcium 8.7 Total Bilirubin 0.5 AST 22 ALT 24 Alkaline Phosphatase 69 Total Protein 6.5 Albumin 3.7 TSH 0.671
--- NOTE | 2023-09-24 10:06 | NUTR.NU ---
RDN with nutrition screen related to patient receiving chemotherapy and weight loss per weight history in chart. MST score was 0. Patient admitted for respiratory failure with hypoxia. Has history of Adenocarcinoma of appendix, diagnosed in 2019, receiving chemotherapy (palliative, per patient) every 2 weeks with last infusion on 09/16/23. RDN visited with patient and (Anca, also designated caregiver) whom reports doing well, denied nausea, vomiting, constipation or diarrhea. He has a normal appetite and denies recent weight loss. He reports usual body weight around 220 lbs. Current weight 219lbs 3oz; Height 5ft 9in; BMI is obese at 32.4 kg/m2. Weight history shows weight from 08/12-09/09 in 230s range, however these weights were stated or from [facility] and therefore not accurate. With stable weight and good appetite, no nutrition interventions at this time. Patient nor had any questions or concerns at this time. RDN will continue to monitor and follow-up prn.
[2023-09-24 11:00] VITALS: BP 127/74; PULSE 84; RESP 20; TEMP 36.3; O2SAT 100
[2023-09-24 15:00] VITALS: BP 127/72; PULSE 88; RESP 18; TEMP 36.4; O2SAT 95
--- NOTE | 2023-09-24 15:28 | PC.NURSE ---
Nursing Care Hours: [id number] Pt this shift calm and cooperative with cares, independent in the room. C/o pain in left heel d/t TEDs. ELVIS's removed, no redness noted on heel. Edema bilat feet up to ankle. Kept ELVIS's off but using SCD. Order to dc tele and IV completed. Titrate supplemental O2 from 3L to 1L, keeping sats above 90%. Critical lab reported to hospitalist. Pt eating and drinking sufficiently.
[2023-09-24] MEDS: ACETAMINOPHEN 325 MG TABLET 975 MG PO (15:33)
[2023-09-24 19:00] VITALS: BP 144/91; PULSE 87; RESP 20; TEMP 36.4; O2SAT 94
[2023-09-24] MEDS: PROCHLORPERAZINE 10 MG TABLET PO (19:25)
--- NOTE | 2023-09-24 22:39 | PC.NURSE ---
End of shift [id number]: Pt A&O x4, afebrile and VSS this afternoon. Ambulates independently in his room. Pt is chronically on 2L NC at home which is what his current flow rate is at with O2 sats > 90%. Denies dizziness or lightheadedness with ambulation. Pt received PRN Tylenol x1 dose @ 1530 for reports of ?feeling warm?. Skin flushed in color & moist forehead but VSS. Pt has a very flat affect and became irritated with meds ordered but later apologized for being cranky. No IV access and no handkerchief cutter d/t previously planned discharge today. Still awaiting final sputum cx results to the plan is to discharge home with tomorrow, 09/25. Pt refused his Lovenox this evening. He requested PRN Compazine x1 dose @ 1925 d/t intermittent nausea r/t chemotherapy. Bilateral feet have 2+ edema but pt refused to wear SCD?s overnight.?
[2023-09-25] VITALS: BP 131/81; PULSE 69; RESP 18; TEMP 36.1; O2SAT 97
--- NOTE | 2023-09-25 04:06 | PC.NURSE ---
PATIENT REQUESTED TO NOT BE DISTURBED DURING THE NIGHT, DECLINED PAIN, ON 2L O2, BILATERAL LOWER EXTREMITY PITTING EDEMA.
[2023-09-25 07:13] LABS: Basophils Absolute Auto 0.01 K/uL (0.00-0.30); Basophils Percent Auto 0.1 % (0.0-3.0); Hematocrit 35.1 % (37.0-53.0); Immature Granulocytes Abs Auto 0.03 K/uL (0.00-0.30); Immature Granulocytes Pct Auto 0.4 %; Lymphocytes Percent Auto 9.7 % (20-44); Mean Corpuscular HGB Conc 31 gm/dL (32-36); Mean Corpuscular Hemoglobin 32 pg (26-34); Mean Corpuscular Volume 103 fL (80-100); Monocytes Percent Auto 9.2 % (0.0-11.0); Neutrophils Percent Auto 80.6 % (42.0-72.0); Platelet Count* 314 K/uL (140-440); RDW Coefficient of Variation % 12.9 % (11.5-15.5); White Blood Count* 7.52 K/uL (4.50-11.00)
[2023-09-25 07:15] LABS: Chloride* 95 mmol/L (96-114); Sodium* 138 mmol/L (135-149)
[2023-09-25 07:16] LABS: Potassium* 4.3 mmol/L (3.6-5.1)
[2023-09-25 07:18] LABS: Creatinine* 0.9 mg/dL (0.5-1.5); Est. Creatinine Clearance* 72.66; Estimated Glomerular Filt Rate 94 ml/min
[2023-09-25 07:19] LABS: Anion Gap 6 mEq/L (7-15); Blood Urea Nitrogen* 22 mg/dL (7-30); Carbon Dioxide* 37 mmol/L (20-32); Glucose* 109 mg/dL (60-115)
[2023-09-25 07:31] LABS: Slide Review Reflex No
[2023-09-25 07:57] VITALS: BP 125/76; PULSE 78; RESP 20; TEMP 36.4; O2SAT 97
[2023-09-25] MEDS: predniSONE 20 MG TABLET 60 MG PO (08:40)
[2023-09-25] MEDS: prednisoLONE acetate 1 % DROPS 1 DROP EYE-LEFT (08:41)
[2023-09-25] MEDS: FLUTICASONE PROPION SALMETEROL IH (08:41)
--- NOTE | 2023-09-25 09:33 | P.DS_ITS ---
DS: Providers Provider Date Seen: 09/25/23 Date of admission: 09/23/23 13:26 Primary care physician: Oliver Anne MD Admitting Clinician: Elizabeth Bowman MD Consults: RT Attending Physician on discharge: Mary Marr PA-C Date of Discharge: 09/25/23 DS: Diagnosis Discharge Diagnosis (1) Acute on chronic respiratory failure with hypoxia: Status: Chronic Problem details: - ddx: acute bacterial infection, viral illness - improvement with Levofloxacin and high dose Prednisone (09/23), RT followed during stay given need for supplemental oxygen (has at home) - high risk for complications given comorbidities and immunosuppressed status - sputum culture pending on discharge (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 Follows with Oncology at [place] - currently having chemotherapy every other week, last treatment 09/16 (3) Chronic pulmonary aspergillosis: Status: Chronic Problem details: - on chronic steroid therapy, follows with Pulmonology at [place] DS: Summary Hospital Course Hospital Course: Antolin is a very pleasant 68-year-old male with a history of asthma, chronic aspergillosis, and metastatic goblet cell carcinoma who presented to the hospital on 09/23 for fever, acute on chronic hypoxic respiratory failure, malaise. Imaging concerning for infectious process on top of chronic lung disease; patient improved with Levaquin, high-dose prednisone. He did not have recurrent fevers during stay, was medically appropriate for discharge home with on 09/25. He will complete a course of Levaquin and steroid taper, will resume home dose of steroids upon discharge (typically takes 20mg QOD) Comorbidities noted above, stable during stay. Routine follow-up with PCP and Oncology. Status at Discharge Functional status at discharge: independent ambulation Overall status at discharge: patient is progressing back to baseline Time Spent with Patient Time attestation: Total time spent providing and/or coordinating discharge services: Time spent: Greater than 30 minutes Specific discharge activities: Medication reconciliation, documentation, discharge planning Exam Narrative: Exam Narrative: GEN: Alert and oriented, wearing supplemental oxygen, sitting comfortably in bed, nontoxic HEENT: Normal external ears, EOMIs bilaterally, no scleral icterus CV: RRR, No concerning murmurs R: Air movement has improved from admission, bibasilar rhonchi, bilateral apical wheezing Ext: wwp, minimal edema noted Skin: Scattered bruising on extremities, laceration repair on LUE stable Neuro: Nonfocal Psych: Appropriate Const: Vital Signs, click to edit/add: Vital Signs - 24 hr 09/24/23 11:00 09/24/23 15:00 09/24/23 15:00 Temperature 97.3 F L Pulse Rate 88 Pulse Rate [Pulse Oximeter] Pulse Rate [Right Radial] 84 88 Respiratory Rate 20 18 Blood Pressure [Ri ght Arm] 127/74 Pulse Oximetry 100 Oxygen Delivery Me thod Nasal Cannula Oxygen Flow Rate 2 09/24/23 15:00 09/24/23 15:00 09/24/23 19:00 Temperature 97.6 F 97.6 F Pulse Rate Pulse Rate [Pulse Oximeter] 88 87 Pulse Rate [Right Radial] Respiratory Rate 18 18 20 Blood Pressure [Ri ght Arm] 127/72 144/91 H Pulse Oximetry 95 95 94 Oxygen Delivery Me thod Nasal Cannula Nasal Cannula Nasal Cannula Oxygen Flow Rate 2 2 2 09/25/23 00:00 09/25/23 00:00 09/25/23 00:00 Temperature 97.0 F L Pulse Rate Pulse Rate [Pulse Oximeter] 69 69 Pulse Rate [Right Radial] Respiratory Rate 18 18 18 Blood Pressure [Ri ght Arm] 131/81 Pulse Oximetry 97 97 Oxygen Delivery Me thod Nasal Cannula Nasal Cannula Oxygen Flow Rate 2 2 09/25/23 07:57 09/25/23 07:57 Temperature 97.6 F Pulse Rate Pulse Rate [Pulse Oximeter] 78 Pulse Rate [Right Radial] Respiratory Rate 20 Blood Pressure [Ri ght Arm] 125/76 Pulse Oximetry 97 97 Oxygen Delivery Me thod Nasal Cannula Nasal Cannula Oxygen Flow Rate 2 2 DS: Data Data Completed and Pending Completed studies during hospitalization: Procedures Introduction of Other Gas into Respiratory Tract, Via Natural or Artificial Opening (04/24/23) Labs on day of discharge: Labs from last 24 hours 09/25/23 06:20 WBC 7.52 RBC 3.40 L Hgb 11.0 L Hct 35.1 L MCV 103 H MCH 32 MCHC 31 L RDW Coeff of Oma 12.9 Plt Count 314 Neut % (Auto) 80.6 H Lymph % (Auto) 9.7 L [place] % (Auto) 9.2 Eos % (Auto) 0.0 Baso % (Auto) 0.1 Neut # (Auto) 6.10 Lymph # (Auto) 0.70 L [place] # (Auto) 0.70 Eos # (Auto) 0.00 Baso # (Auto) 0.01 Abs Immat Gran (auto) 0.03 Imm/Tot Granulo (auto) 0.4 Sodium 138 Potassium 4.3 Chloride 95 L Carbon Dioxide 37 H Anion Gap 6 L BUN 22 Creatinine 0.9 Estimated Creat Clear 72.66 Estimated GFR 94 Glucose 109 Calcium 9.0 Preliminary micro results at discharge 09/24/23 09:33 Sputum Culture - Preliminary Sputum - Expectorated Sputum 09/23/23 07:59 Blood Culture - Preliminary Blood NO GROWTH AFTER 48 HOURS 09/23/23 07:40 Blood Culture - Preliminary Blood NO GROWTH AFTER 48 HOURS Discharge Plan Discharge Disposition: Home, Self-Care Date of Admission: 09/23/23 13:26 Attending Provider on Discharge: Mary Marr Primary Care Provider: Oliver Anne Condition: Improved Anticipated Discharge Date/Time: 09/25/23 09:25 Discharge Medications: New prednisone 20 mg Tablet 60 mg PO DAILYWM Qty: 16 0RF Rx Instructions: 3 tabs (60mg) Qd x2d, then 2 tabs (40mg) daily x5d, then back to previous home dose of Prednisone levofloxacin 500 mg Tablet 500 mg PO Q24H 7 Days Qty: 7 0RF Continued prochlorperazine maleate 10 mg tablet 10 mg PO Q6H PRN (Reason: nausea/vomiting) fluticasone propion-salmeterol [Advair Diskus] 500-50 mcg/dose blister with device 1 inh inhalation BID albuterol sulfate [Ventolin HFA] 90 mcg/actuation HFA aerosol inhaler 2 puff INHALATION Q6H PRN (Reason: wheezing) loperamide 2 mg capsule 4 mg PO Q2H PRN (Reason: loose stool) Qty: 60 0RF Rx Instructions: 2 tabs every 2-4 hours as needed for diarrhea prednisolone acetate 1 % drops,suspension 1 drp ophthalmic (eye) QID furosemide [Lasix] 20 mg tablet 20 mg PO QAM PRN (Reason: edema) Qty: 30 2RF Held prednisone 5 mg tablet 10 - 15 mg PO DAILY Hold Instructions: Resume on 09/30/23. resume home dose of Prednisone after steroid taper Rx Instructions: ALTERNATE 10 AND 15 MG DAILY Discontinued ondansetron HCl 8 mg tablet 8 mg PO Q8H PRN (Reason: nausea/vomiting) No Action (DME) nebulizer and compressor [InnoSpire Essence] Device See Rx Instructions .ROUTE .MEDSUPPLY Qty: 1 Patient Comments: [NO ORIGINAL SIG] Rx Instructions: As directed Discharge Orders: Discharge Order (Routine); Ordered 09/25/23 Ordered By: Mary Marr Patient Education: Prednisone (By mouth), Levofloxacin (By mouth), Heart Failure (DC) Additional Instructions: Antibiotics and Prednisone at [facility] - goal O2 saturation is 90-92% (no need to be higher than that, because higher saturations can increase your CO2 levels). See [facility] in a week or so for f/u. Activity Level: Activity as Tolerated Discharge Diet: Regular Follow Up Appointments: Oliver Anne MD [Primary Care Provider] - (7-14 days for hospital discharge f/u) Forms: [employer] Info Instructions
[2023-09-25] MEDS: levoFLOXacin 500 MG TABLET PO (10:07)
--- NOTE | 2023-09-25 11:13 | PC.NURSE ---
Discharge: Patient pleasant and cooperative. Up independently in room, present throughout shift. Vitals stable and WNL. Patient back to baseline o2 use (1-2L/NC). o2 sats 90-95% on 2L/NC. Tolerating regular diet. Denies pain or nausea. No IV present at time of discharge. Patient discharged to home @ 1044.
== END 2023-09-25 10:44 | disposition home or self-care (01) | DRG 189 ==
LOC: ED 08:02 → MEDSURG 13:05
PROVIDERS: Admitting Provider Family Medicine; Emergency Provider Family Medicine; PCP Internal Medicine; Visit Provider Physician Assistant
DX: J96.21 Acute and chronic respiratory failure with hypoxia (principal); B44.1 Other pulmonary aspergillosis; C18.1 Malignant neoplasm of appendix; C78.6 Secondary malignant neoplasm of retroperitoneum and peritoneum; D84.81 Immunodeficiency due to conditions classified elsewhere; J47.0 Bronchiectasis with acute lower respiratory infection; J98.11 Atelectasis; J22 Unspecified acute lower respiratory infection; J45.909 Unspecified asthma, uncomplicated; J44.9 Chronic obstructive pulmonary disease, unspecified; Z90.49 Acquired absence of other specified parts of digestive tract; Z79.52 Long term (current) use of systemic steroids
CPT/HCPCS: 36415; 71260; 80048; 80053; 82803; 83605; 83880; 84443; 84484; 85025; 85610; 86140; 87040; 87070; 87631; 94761; 99284; 99285; A9270; J1940; J7030; J7512; Q9967

== ENCOUNTER 2024-03-31 08:08 | Outpatient (CLI) | payer MEDICARE, BC, SELFPAY | END 2024-03-31 08:09 | disposition home or self-care (01) | LOC: NFLDREF 04-01 01:57 | PROVIDERS: PCP Internal Medicine; Referring Provider Internal Medicine; Visit Provider Internal Medicine | DX: Z13.9 Encounter for screening, unspecified (principal); Z12.5 Encounter for screening for malignant neoplasm of prostate; Z13.6 Encounter for screening for cardiovascular disorders; Z13.220 Encounter for screening for lipoid disorders | CPT/HCPCS: 80053; 80061; G0103 ==

== ENCOUNTER 2024-04-06 08:04 | Inpatient (IN) | payer MEDICARE, BC, SELFPAY ==
[2024-04-06] VITALS (11 sets, daily range): BP systolic 117–158; BP diastolic 73–79; PULSE 106–115; RESP 18–28; TEMP 37–37.2; O2SAT 92–96; BMI 36.9; BMI 36.0
--- NOTE | 2024-04-06 09:17 | CRLHL7_ITS ---
For Patients: As a result of the Century Cures Act, medical imaging exams and procedure reports are released immediately into your electronic medical record. You may view this report before your referring provider. If you have questions, please contact your health care provider. INDICATION: Edema/swelling/fluid retention COMPARISON: None available. FINDINGS: Ultrasound of the venous drainage of the left lower extremity shows no evidence of deep venous thrombosis. The examination was performed as hicks scale, hicks scale compression, color Doppler and spectral Doppler interrogation. Augmentation technique was also performed as per protocol. There is normal antegrade flow from the posterior tibial and popliteal veins superiorly through the common femoral vein. There is normal augmentation and compressibility of these veins. The right common femoral vein is widely patent. Of note, the calf veins were not well evaluated due to patient pain and due to edema. The posterior tibials were not visualized probably due to edema IMPRESSION: No evidence of deep venous thrombosis on ultrasound examination of the left lower extremity. Dictated by James Colin MD @ 04/06/2024 10:09:12 AM (Electronically Signed)
--- NOTE | 2024-04-06 09:17 | CRLHL7_ITS ---
For Patients: As a result of the Cures Act, medical imaging exams and procedure reports are released immediately into your electronic medical record. You may view this report before your referring provider. If you have questions, please contact your health care provider. Indication: fluid retention Technique: AP view of the chest. Comparison: 04/25/2023 Findings: Redemonstration of right internal jugular chest port with catheter tip in the right atrium. Moderately enlarged cardiomediastinal silhouette. Diffuse interstitial prominence. No pleural effusion or visualized pneumothorax. Impression: Diffuse interstitial prominence is again seen, which may represent known bronchiectasis with superimposed infection or inflammation versus pulmonary edema. Dictated by Les Villagran MD @ 04/06/2024 10:19:42 AM (Electronically Signed)
--- NOTE | 2024-04-06 09:20 | ED.GENADULT ---
HPI - General Adult General Chief complaint: Laceration/Wound Stated complaint: LT leg wound, breathing difficulty Time Seen by Provider: 04/06/24 08:06 History of Present Illness HPI narrative: Patient is a 68 year white male with gastric cancer, it has been a pale eat of mode. He gets chemotherapy at [facility], he recently had a CT scan that showed that it was ?about the same?. He reports he has had left leg worsening after he bumped it a while ago and it has now been painful swollen, his right leg is also markedly swollen. His left leg is more tender he has got a bruise in open wound on the left lateral leg. He was started on Keflex a couple days ago and has not done much in his continues to hurt in his left leg. He continues on Eliquis. He is on chronic home O2. His oxygen drops pretty quickly if he goes off oxygen which he is on 90% that time per his family. He also has chronic lung disease. Reports that his breathing has been worse, he also has gained 25 lb since leaving the [facility] a couple of weeks ago. Related Data Home Medications ?Medication ?Instructions ?Recorded ?Confirmed albuterol sulfate 90 mcg/actuation 2 puff inhalation Q6H PRN wheezing 04/24/23 04/06/24 aerosol inhaler (Ventolin HFA) fluticasone 500 mcg-salmeterol 50 1 inh inhalation BID 04/24/23 04/06/24 mcg/dose blistr powdr for inhalation (Advair Diskus) prednisone 5 mg tablet 10 - 30 mg PO DAILY 04/24/23 04/06/24 prochlorperazine maleate 10 mg 10 mg PO Q6H PRN nausea/vomiting 04/24/23 04/06/24 tablet amoxicillin 875 mg tablet 875 mg PO BID PRN 04/06/24 04/06/24 apixaban 5 mg tablet (Eliquis) 5 mg PO BID 04/06/24 04/06/24 loperamide 2 mg capsule 4 mg PO QID PRN loose stool 04/06/24 04/06/24 ondansetron HCl 8 mg tablet 8 mg PO Q8H PRN nausea/vomiting 04/06/24 04/06/24 Previous Rx's ?Medication ?Instructions ?Recorded cephalexin 500 mg capsule 500 mg PO TID 7 days #21 caps 04/05/24 furosemide 20 mg tablet 20 mg PO QAM PRN for edema #90 tabs 04/05/24 Allergies Allergy/AdvReac Type Severity Reaction Status Date / Time No Known Drug Allergies Allergy Verified 04/06/24 15:30 Review of Systems Status of ROS: Reports: 6 or more systems reviewed and unremarkable except as noted in History and below [facility] Medical History (Updated 04/06/24 @ 14:20 by Elizabeth Bowman MD) Chronic hypoxic respiratory failure, on home oxygen therapy ?J96.11 - Chronic respiratory failure with hypoxia (ICD-10) ?Z99.81 - Dependence on supplemental oxygen (ICD-10) Chronic pulmonary aspergillosis ?B44.1 - Other pulmonary aspergillosis (ICD-10) Goblet cell carcinoid ?C18.1 - Malignant neoplasm of appendix (ICD-10) Blood clot due to device, implant, or graft ?T85.818A - Embolism due to other internal prosthetic devices, implants and grafts, initial encounter (ICD-10) Chronic steroid use Impingement syndrome of shoulder region ?M75.40 - Impingement syndrome of unspecified shoulder (ICD-10) Laceration of arm, left, complicated ?S41.112A - Laceration without foreign body of left upper arm, initial encounter (ICD-10) Edema ?R60.9 - Edema, unspecified (ICD-10) Diarrhea (04/24/23) ?R19.7 - Diarrhea, unspecified (ICD-10) Surgical History History of abdominal surgery ?Z98.890 - Other specified postprocedural states (ICD-10) Hx of appendectomy ?Z90.49 - Acquired absence of other specified parts of digestive tract (ICD-10) S/P right colectomy ?Z90.49 - Acquired absence of other specified parts of digestive tract (ICD-10) Social History Narrative: Lives with Anca (Medical decision maker if needed) outside of [place], 3 adult children. Has worked for [employer]. Nonsmoker, social ETOH without any history of withdrawal. Requests to not be intubated, trial of CPR okay. What is your current living situation?: I presently have a place to live Problems where you live: no known problems Problems where you live details: N/A In the past 12 months, utilities in danger of being shut off: no In past 12 months, lack of transportation kept you from medical appts, meetings, work, or getting things needed for daily living: no In the past 12 mos, have been you worried that your food would run out before you had money to buy more?: never true In the past 12 mos, the food you bought just didn't last and you didn't have money to buy more?: never true Smoking Status: Never smoker Do you use any of these nicotine containing products: None Second hand tobacco smoke exposure: No How often do you have a drink containing alcohol: 4 or more times a week Alcohol type: beer How often do you have six or more drinks on one occasion: Never AUDIT-C Alcohol total score: 4 Non-prescribed substance use: denies use Caffeine: No How often does anyone, including family, friends and others, physically hurt you: never How often does anyone, including family, friends and others, insult or talk down to you: never How often does anyone, including family, friends and others, threaten you with harm: never How often does anyone, including family, friends and others, scream or curse at you: never Little interest or pleasure in doing things: not at all Feeling down, depressed, or hopeless: not at all service: No Exam Narrative: Exam Narrative: Objective: The patient's vital signs are afebrile, his pulse is 112, respiratory 20, slightly labored he is on 3 L nasal cannula HEENT is unremarkable he has got steroid feces Neck is supple Lungs show basilar wheezes Heart rhythm regular 2/6 systolic murmur occasional ectopic beat noted Abdomen but obese benign nontender Lower extremities show marked swelling of the lower extremities there is warmth and redness of both but low left greater than right, he has got a bruise and a couple open dime size wounds on his left lateral leg these will be cultured. He also reports the back of his calf is tender and it is firm and feels indurated a little bit. Neurologic is nonfocal. Const: Vital Signs, click to edit/add: Vital Signs - 24 hr 04/06/24 08:14 04/06/24 09:16 04/06/24 10:00 Temperature 98.9 F Pulse Rate [Left P ulse Oximeter] Pulse Rate [Left R adial] 112 H Pulse Rate [Right Pulse Oximeter] Respiratory Rate 20 Blood Pressure [Le ft Arm] Blood Pressure [Ri ght Upper Arm] Pulse Oximetry 93 96 Oxygen Delivery Me thod Nasal Cannula Oxygen Flow Rate 3 04/06/24 10:00 04/06/24 12:05 04/06/24 12:22 Temperature 98.6 F Pulse Rate [Left P ulse Oximeter] 115 H Pulse Rate [Left R adial] Pulse Rate [Right Pulse Oximeter] 107 H Respiratory Rate 28 H 18 18 Blood Pressure [Le ft Arm] 158/75 H Blood Pressure [Ri ght Upper Arm] 151/74 H Pulse Oximetry 92 95 Oxygen Delivery Me thod Nasal Cannula Nasal Cannula Oxygen Flow Rate 3 2.5 2 04/06/24 12:57 04/06/24 13:37 Temperature Pulse Rate [Left P ulse Oximeter] Pulse Rate [Left R adial] Pulse Rate [Right Pulse Oximeter] Respiratory Rate 18 Blood Pressure [Le ft Arm] Blood Pressure [Ri ght Upper Arm] Pulse Oximetry 96 92 Oxygen Delivery Me thod Nasal Cannula Nasal Cannula Oxygen Flow Rate 2 3 Course Vital Signs Vital signs: Initial Vital Signs Temperature 98.9 F 04/06/24 08:14 Temperature Source Temporal Artery Scan 04/06/24 08:14 Pulse Rate 112 H 04/06/24 08:14 Pulse Rhythm Regular 04/06/24 08:14 Respiratory Rate 20 04/06/24 08:14 Oxygen Delivery Method Nasal Cannula 04/06/24 08:14 Oxygen Flow Rate 3 04/06/24 08:14 Vital Signs Temperature 98.9 F 04/06/24 08:14 Pulse Rate 112 H 04/06/24 08:14 Respiratory Rate 20 04/06/24 08:14 Oxygen Delivery Method Nasal Cannula 04/06/24 08:14 Oxygen Flow Rate 3 04/06/24 08:14 Temperature 98.9 F 04/06/24 15:12 Pulse Rate 114 H 04/06/24 15:12 Respiratory Rate 18 04/06/24 15:12 Blood Pressure 140/79 H 04/06/24 15:12 Pulse Oximetry 95 04/06/24 15:12 Oxygen Delivery Method Nasal Cannula 04/06/24 15:12 Oxygen Flow Rate 2 04/06/24 15:12 Medications Administered Medications: Generic Name Dose Route Start Last Admin Trade Name Freq PRN Reason Stop Dose Admin Acetaminophen 650 - 975 mg 04/06/24 13:18 04/06/24 13:56 Acetaminophen 325 Mg Tablet PO 650 mg Q6H PRN Administration Ondansetron HCl 8 mg 04/06/24 13:30 04/06/24 14:55 Ondansetron Odt 4 Mg Tab PO 8 mg Q8H PRN Administration nausea/vomiting Potassium Bicarbonate 25 meq 04/06/24 14:15 04/06/24 15:38 Potassium Bicarb 25 Meq Effervescent Tab PO 04/06/24 16:16 25 meq Q2H KATALINA Administration Discontinued Medications Generic Name Dose Route Start Last Admin Trade Name Freq PRN Reason Stop Dose Admin Furosemide 60 mg 04/06/24 09:18 04/06/24 10:46 Furosemide 10 Mg/Ml Inj IVP 04/06/24 09:19 60 mg ONCE ONE Administration Piperacillin Sod/Tazobactam 100 mls @ 200 mls/hr 04/06/24 09:16 04/06/24 11:20 Sod 3.375 gm/ Sodium Chloride IVPB 04/06/24 09:17 Infused ONCE ONE Infusion Medical Decision Making MDM Narrative Medical decision making narrative: 68-year-old male with a history of gastric cancer metastatic, on palliative chemotherapy. On Eliquis. With 25 lb weight gain over a couple of weeks, likely fluid retention, rule out CHF. The patient at this point has lower leg cellulitis as well probably bilaterally but worse on the left. I think he should get IV antibiotics as I do not think oral antibiotics will help him, he needs aggressive diuresis, will scan his left leg to make sure there is no DVT. I think he should be admitted to the hospital for observation will discuss with our hospitalist team. Addendum 11:00 a.m. negative for DVT in the left lower extremity, elevated CO2, CRP is elevated 2.8, BNP is actually fairly normal. Accepted by Dr. Bowman on the hospitalist team Lab Data Labs: Lab Results 04/06/24 04/06/24 Range/Units 09:40 09:50 WBC 11.10 H (4.50-11.00) K/uL RBC 3.83 L (4.30-5.90) m/uL Hgb 12.4 L (13.5-17.5) gm/dL Hct 40.0 (37.0-53.0) % MCV 104 H (80-100) fL MCH 32 (26-34) pg MCHC 31 L (32-36) gm/dL RDW Coeff of Oma 14.3 (11.5-15.5) % Plt Count 300 (140-440) K/uL Neut % (Auto) 82.8 H (42.0-72.0) % Lymph % (Auto) 8.6 L (20-44) % [place] % (Auto) 5.3 (0.0-11.0) % Eos % (Auto) 2.2 (0.0-7.0) % Baso % (Auto) 0.2 (0.0-3.0) % Neut # (Auto) 9.20 H (1.7-7.0) K/uL Lymph # (Auto) 1.00 (0.90-2.90) K/uL [place] # (Auto) 0.60 (0.00-0.90) K/UL Eos # (Auto) 0.20 (0.00-0.50) K/uL Baso # (Auto) 0.00 (0.00-0.30) K/uL Abs Immat Gran (auto) 0.10 (0.00-0.30) K/uL Imm/Tot Granulo (auto) 0.9 % VBG pH 7.354 (7.32-7.43) VBG pCO2 72 H* (40-50) mmHG VBG pO2 < 30.1 (25-47) mmHG VBG HCO3 40 H (21-28) mmol/L Sodium 135 (135-149) mmol/L Potassium 4.9 (3.6-5.1) mmol/L Chloride 95 L (96-114) mmol/L Carbon Dioxide 40 H (20-32) mmol/L Anion Gap 0 L (7-15) mEq/L BUN 21 (7-30) mg/dL Creatinine 0.9 (0.5-1.5) mg/dL Estimated Creat Clear 72.66 Estimated GFR 94 ml/min Glucose 104 (60-115) mg/dL Lactate 1.3 (0.5-1.9) mmol/L Calcium 8.8 (8.4-10.6) mg/dL C-Reactive Protein 2.8 H (0.5-1.0) mg/dL NT-Pro-B Natriuret Pep 173 pg/mL Procalcitonin 0.11 (<0.50) ng/mL Lab Acknowledgement Test Added Discharge Plan Discharge Clinical Impression: Leg ulcer, Cellulitis of left leg, Fluid overload Patient Disposition: Admitted As Observation
[2024-04-06 09:45] LABS: HCO3 VBG 40 mmol/L (21-28); Lactate* 1.3 mmol/L (0.5-1.9); PO2 VBG < 30.1 mmHG (25-47); pH VBG 7.354 (7.32-7.43)
[2024-04-06 09:47] LABS: PCO2 VBG 72 mmHG (40-50)
[2024-04-06 09:55] LABS: Basophils Percent Auto 0.2 % (0.0-3.0); Eosinophils Percent Auto 2.2 % (0.0-7.0); Hemoglobin* 12.4 gm/dL (13.5-17.5); Immature Granulocytes Pct Auto 0.9 %; Lymphocytes Percent Auto 8.6 % (20-44); Mean Corpuscular HGB Conc 31 gm/dL (32-36); Mean Corpuscular Hemoglobin 32 pg (26-34); Mean Corpuscular Volume 104 fL (80-100); Monocytes Percent Auto 5.3 % (0.0-11.0); Neutrophils Percent Auto 82.8 % (42.0-72.0); RDW Coefficient of Variation % 14.3 % (11.5-15.5); Red Blood Count 3.83 m/uL (4.30-5.90)
[2024-04-06 10:28] LABS: Chloride* 95 mmol/L (96-114)
[2024-04-06 10:29] LABS: Sodium* 135 mmol/L (135-149)
[2024-04-06 10:30] LABS: Platelet Count* 300 K/uL (140-440)
[2024-04-06 10:31] LABS: Creatinine* 0.9 mg/dL (0.5-1.5); Est. Creatinine Clearance* 72.66; Estimated Glomerular Filt Rate 94 ml/min; Slide Review Reflex No
[2024-04-06 10:32] LABS: Anion Gap 0 mEq/L (7-15); Blood Urea Nitrogen* 21 mg/dL (7-30); Carbon Dioxide* 40 mmol/L (20-32); Glucose* 104 mg/dL (60-115)
[2024-04-06 10:33] LABS: Calcium* 8.8 mg/dL (8.4-10.6)
[2024-04-06 10:35] LABS: C Reactive Protein* 2.8 mg/dL (0.5-1.0)
[2024-04-06 10:42] LABS: NT Pro B Type NatriureticPept* 173 pg/mL
[2024-04-06 10:44] LABS: Potassium* 4.9 mmol/L (3.6-5.1)
[2024-04-06] MEDS: FUROSEMIDE 10 MG/ML inj 60 MG IVP (10:46)
[2024-04-06] MEDS: PIPERACILLIN/TAZOBACTAM 3.375 GM in 0.9 % SODIUM CHLORIDE Mini-bag 100 ML IVPB ×3 (10:46→23:14)
--- NOTE | 2024-04-06 11:52 | ED.NURSE ---
PORT on right side accessed today in ED
--- NOTE | 2024-04-06 13:00 | P.IMHP_ITS ---
Hospitalist- H&P: HPI History of Present Illness Date Seen: 04/06/24 Chief complaint: LT leg wound, breathing difficulty Narrative: ADMISSION HISTORY AND PHYSICAL - HOSPITALIST Chief Complaint: Increasing left leg swelling and redness. Increasing shortness of breath HPI: 68-year-old Don, presents to our emergency room with increasing left leg pain and redness. 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 He also has chronic lung disease and is on chronic oxygen. He saw his PCP yesterday and was diagnosed with a nonhealing superficial wound on the lateral left calf. He was started on Keflex and oral Lasix. He had a nearly 30 lb weight gain in recent weeks. Apparently he bumped his left leg about 3 weeks ago on the side of his truck. Drainage only began from the wound in the last couple of days. He feels the redness and swelling has accelerated in the last few days as well. No fever. His shortness of breath is quite severe at baseline but it is potentially worse in the last few days. Chronic cough with green sputum is not new. ER COURSE: Labs, chest x-ray, Doppler exam of the left leg and IV Lasix and Zosyn. Given his immunocompromised status, increasing weight gain and pain level hospital medicine was asked to admit for management. CODE STATUS: DNR DNI EMERGENCY CONTACT PLAN: Anca Stearns Rel To Pat Cell I've updated the PFSH, medications and allergies in the Expanse tabs. INVESTIGATIONS: LABS/MICRO/ECG/IMAGING Mildly elevated white blood cell count 11.1 Hemoglobin is at his baseline 12.4 Platelet count is normal 82.8% neutrophils VBG reveals a normal pH with a elevated pCO2 which is not new. 72, 68 in nuary Chemistries are reassuring. Creatinine is normal. CRP is only 2.8 Normal BNP Venous duplex reveals no evidence of DVT on that left lower extremity Chest x-ray Diffuse interstitial prominence is again seen, which may represent known bronchiectasis with superimposed infection or inflammation versus pulmonary edema. wound culture pending from left leg ECHO 04/2023 1. Technically limited exam. 2. Normal LV size, moderately increased wall thickness, normal global systolic function with an estimated EF of 65 - 70%. 3. Right ventricular cavity size is mildly enlarged, global systolic RV function is mildly reduced. 4. The aortic valve is trileaflet and sclerotic, no stenosis and no regurgitation. 5. Moderately increased estimated pulmonary pressures by tricuspid regurgitation velocity and right atrial pressure (56 mmHg plus RAP). REVIEW OF SYSTEMS: 12-point ROS completed with patient and negative unless otherwise stated in HPI or below. PHYSICAL EXAM: CONSTITUTIONAL: Nontoxic appearing. He looks tired and unwell but otherwise alert and oriented. VITAL SIGNS: see record. HEENT: Normocephalic, atraumatic. PERRL, EOMI, conjunctivae pink, no scleral icterus. Ears and nose externally normal. Pharynx normal. NECK: No JVD. No carotid bruit, no thyromegaly, no adenopathy. CHEST: Expiratory wheeze. HEART: S1 and S2 normal. No harsh murmurs. Edema 3+ MUSCULOSKELETAL: There is a circular open wound, superficial, 2 cm x 2 cm on the left lower extremity, above and medial to the left malleolus. NEURO: Tight shiny appearing left lower extremity from the knee down. I have outlined the area of erythema that extends to the inner thigh and wraps around the calf. No obvious fluctuance is noted. There is a ecchymoses proximal to th e open wound. SKIN: As described PSYCHIATRIC: Euthymic. ADMIT TO MEDSURG: FLOOR CARE DVT: Continue home apixaban GI: PO intake, ppi. Time spent: Today I spent 75 minutes seeing the patient, discussing the patient with ER staff, reviewing Expanse and EPIC notes/diagnostics, discussing the care plan with our care time that includes social work, PT/OT, pharmacy, RT, senior care and documenting my impressions and plan in the medical record. [facility] Medical History (Updated 04/06/24 @ 14:20 by Elizabeth Bowman MD) Chronic hypoxic respiratory failure, on home oxygen therapy ?J96.11 - Chronic respiratory failure with hypoxia (ICD-10) ?Z99.81 - Dependence on supplemental oxygen (ICD-10) Chronic pulmonary aspergillosis ?B44.1 - Other pulmonary aspergillosis (ICD-10) Goblet cell carcinoid ?C18.1 - Malignant neoplasm of appendix (ICD-10) Blood clot due to device, implant, or graft ?T85.818A - Embolism due to other internal prosthetic devices, implants and grafts, initial encounter (ICD-10) Chronic steroid use Impingement syndrome of shoulder region ?M75.40 - Impingement syndrome of unspecified shoulder (ICD-10) Laceration of arm, left, complicated ?S41.112A - Laceration without foreign body of left upper arm, initial encounter (ICD-10) Edema ?R60.9 - Edema, unspecified (ICD-10) Diarrhea (04/24/23) ?R19.7 - Diarrhea, unspecified (ICD-10) Surgical History History of abdominal surgery ?Z98.890 - Other specified postprocedural states (ICD-10) Hx of appendectomy ?Z90.49 - Acquired absence of other specified parts of digestive tract (ICD- 10) S/P right colectomy ?Z90.49 - Acquired absence of other specified parts of digestive tract (ICD- 10) Social History Narrative: Lives with Anca (Medical decision maker if needed) outside of [place], 3 adult children. Has worked for [employer]. Nonsmoker, social ETOH without any history of withdrawal. Requests to not be intubated, trial of CPR okay. What is your current living situation?: I presently have a place to live Problems where you live: no known problems Problems where you live details: N/A In the past 12 months, utilities in danger of being shut off: no In past 12 months, lack of transportation kept you from medical appts, meetings, work, or getting things needed for daily living: no In the past 12 mos, have been you worried that your food would run out before you had money to buy more?: never true In the past 12 mos, the food you bought just didn't last and you didn't have money to buy more?: never true Smoking Status: Never smoker Do you use any of these nicotine containing products: None Second hand tobacco smoke exposure: No How often do you have a drink containing alcohol: 4 or more times a week Alcohol type: beer How often do you have six or more drinks on one occasion: Never AUDIT-C Alcohol total score: 4 Non-prescribed substance use: denies use Caffeine: No How often does anyone, including family, friends and others, physically hurt you : never How often does anyone, including family, friends and others, insult or talk down to you: never How often does anyone, including family, friends and others, threaten you with harm: never How often does anyone, including family, friends and others, scream or curse at you: never Little interest or pleasure in doing things: not at all Feeling down, depressed, or hopeless: not at all service: No Meds Home Medications and Allergies Home Medications ?Medication ?Instructions ?Recorded ?Confirmed ?Type albuterol sulfate 90 mcg/actuation 2 puff inhalation Q6H PRN wheezing 04/24/23 04/06/24 History aerosol inhaler (Ventolin HFA) fluticasone 500 mcg-salmeterol 50 1 inh inhalation BID 04/24/23 04/06/24 History mcg/dose blistr powdr for inhalation (Advair Diskus) prednisone 5 mg tablet 10 - 30 mg PO DAILY 04/24/23 04/06/24 History prochlorperazine maleate 10 mg 10 mg PO Q6H PRN nausea/vomiting 04/24/23 04/06/24 History tablet amoxicillin 875 mg tablet 875 mg PO BID PRN 04/06/24 04/06/24 History apixaban 5 mg tablet (Eliquis) 5 mg PO BID 04/06/24 04/06/24 History loperamide 2 mg capsule 4 mg PO QID PRN loose stool 04/06/24 04/06/24 History ondansetron HCl 8 mg tablet 8 mg PO Q8H PRN nausea/vomiting 04/06/24 04/06/24 History Allergies Allergy/AdvReac Type Severity Reaction Status Date / Time No Known Drug Allergies Allergy Verified 04/05/24 09:15 Exam Const: Vital Signs, click to edit/add: Vital Signs - 24 hr 04/06/24 08:14 04/06/24 09:16 04/06/24 12:05 Temperature 98.9 F 98.6 F Pulse Rate [Left P ulse Oximeter] 115 H Pulse Rate [Left R adial] 112 H Respiratory Rate 20 18 Blood Pressure [Le ft Arm] 158/75 H Pulse Oximetry 93 92 Oxygen Delivery Me thod Nasal Cannula Nasal Cannula Oxygen Flow Rate 3 2.5 04/06/24 12:22 Temperature Pulse Rate [Left P ulse Oximeter] Pulse Rate [Left R adial] Respiratory Rate 18 Blood Pressure [Le ft Arm] Pulse Oximetry 95 Oxygen Delivery Me thod Oxygen Flow Rate 2 Hospitalist - H&P: Result Labs Labs: Short CBC 04/06/24 Range/Units 09:40 WBC 11.10 H (4.50-11.00) K/uL Hgb 12.4 L (13.5-17.5) gm/dL Hct 40.0 (37.0-53.0) % Plt Count 300 (140-440) K/uL BMP 04/06/24 09:40 Sodium 135 Potassium 4.9 Chloride 95 L Carbon Dioxide 40 H BUN 21 Creatinine 0.9 Glucose 104 Calcium 8.8 Assessment and Plan Assessment and plan (1) Cellulitis of left leg: Problem comment: -continue Zosyn. MRSA screen. Wound culture obtained. Outlined erythema. -trend white blood cell count and inflammatory markers and clinical response. Status: Acute (2) Acute dyspnea: Problem comment: -single-view chest x-ray in the ED question superimposed infection verses pulmonary edema. -CTA ordered -echo ordered -BNP is reassuring Status: Acute (3) Chronic hypoxic respiratory failure, on home oxygen therapy: Problem comment: -longstanding. CO2 retention is not new. -keep oxygen at 3 L, appreciate help of RT -diurese Status: Acute (4) Edema: Problem comment: -home dose of Lasix is 20 mg p.o. q.day -ER administered 60 mg IV, I will follow-up with 40 mg IV for a total of 100 mg IV today. Potassium supplementation need presumed and ordered -daily weights -trend labs Status: Chronic (5) Goblet cell carcinoid: Problem comment: - Adenocarcinoma of appendix dx 2019. Recurrence with peritoneal metastases, most prominent along the mid to lower abdomen noted 03/2023. 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 Follows with Oncology at [place] -currently between cycles of chemotherapy which are Q 4 weeks. 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
--- NOTE | 2024-04-06 13:02 | RESP.RT ---
Patient here for Leg wound has on going Respiratory issues. Patient uses Home Oxygen at 2 Lpm, has Albuterol MDI uses with extension and Advair Disc. He states he has been using his Albuterol allot, every few hours. BBS with prolonged expiratory wheeze noted all crook, more prominent on Left and right base. Respiratory rate 30 at time of assessment, breathing regular with use of accessory muscles and purse lip breathing, H/R 116/minute. Patient has fair to good congested, wet productive cough, swallowed secretions. Discussed PEP, with Wes, to assist with secretion mobilization he stated he has two, doesn't use them and does not need another. Will continue to follow.
[2024-04-06] MEDS: ACETAMINOPHEN 325 MG TABLET PO (13:56)
--- NOTE | 2024-04-06 14:03 | CRLHL7_ITS ---
For Patients: As a result of the Century Cures Act, medical imaging exams and procedure reports are released immediately into your electronic medical record. You may view this report before your referring provider. If you have questions, please contact your health care provider. Indication: DYSPNEA, KNOWN CLD, R/O INFILITRATE VS EDEMA Technique: CT angiogram of the chest was performed for evaluation of pulmonary embolism. 95 mL of Isovue 370 intravenous contrast was administered. Comparison: 09/23/2023, 04/24/2023 Findings: CARDIOVASCULAR: Diagnostic quality: Contrast opacification of the pulmonary arterial circulation is adequate for assessment of pulmonary embolism. Study is not significantly limited by respiratory motion artifact. Pulmonary arteries: No filling defects to suggest pulmonary embolism. Enlarged, measuring 3.7 centimeter in diameter (4/103). Heart: No interventricular septal deviation. Normal in size. Mild coronary artery calcification. No significant valvular calcification. Pericardium: Trace pericardial effusion. Thoracic aorta: Mild calcification. Normal cervical branching. REMAINING CHEST: Medical devices: Right internal jugular chest port with catheter tip in the right atrium. Thyroid: Normal. Lymph nodes: No supraclavicular, axillary, mediastinal, or hilar lymphadenopathy. Other mediastinal structures: No significant abnormality. Lung parenchyma: Mild biapical pleural-parenchymal scarring. Redemonstration of moderate scattered centrilobular nodularities in the bilateral lungs. Airways: Small amount of secretions are seen dependently within the trachea and right mainstem bronchus. Redemonstration of diffuse cystic bronchiectasis with moderate bronchial wall thickening. Pleura: No significant abnormality. Chest wall: No significant abnormality. Upper abdomen: Partial visualization of scattered colonic diverticulosis. Postsurgical changes of the right colon. 3 millimeter nonobstructing right renal calculus (4/256). Musculoskeletal: Mild multilevel degenerative changes of the visualized spine. Impression: 1. No acute pulmonary embolism. 2. Enlarged main pulmonary artery, which may be seen in the setting of pulmonary hypertension. 3. Redemonstration of diffuse cystic bronchiectasis with moderate bronchial wall thickening and moderate scattered centrilobular nodularity in the bilateral lungs, which are compatible with airways infection or inflammation. No new focal consolidation is seen. Please note that all CT scans at this facility use dose modulation, iterative reconstruction, and/or weight-based dosing when appropriate to reduce radiation dose to as low as reasonably achievable. Dictated by Les Villagran MD @ 04/06/2024 4:07:24 PM (Electronically Signed)
[2024-04-06] MEDS: ONDANSETRON ODT 4 MG TAB 8 MG PO (14:55)
[2024-04-06 15:04] LABS: Procalcitonin* 0.11 ng/mL (<0.50)
[2024-04-06] MEDS: POTASSIUM BICARB 25 MEQ EFFERVESCENT TAB PO ×2 (15:38→17:18)
[2024-04-06] MEDS: predniSONE 10 MG TABLET PO (17:17)
[2024-04-06] MEDS: 0.9 % SODIUM CHLORIDE 250 ml IV (17:17)
[2024-04-06] MEDS: SODIUM CHLORIDE 0.9 % (FLUSH) 10 ML SYRINGE 5 ML IVF (17:18)
[2024-04-06] MEDS: FUROSEMIDE 10 MG/ML inj 40 MG IVP (17:18)
[2024-04-06] MEDS: HEPARIN 500 UNIT/5 ML SYRINGE IVF (18:14)
--- NOTE | 2024-04-06 18:29 | PC.NURSE ---
Shift Summary: Patient pleasant and cooperative. Needing o2 @ 2-3L/NC to maintain o2 between 90-94%. Drops to mid 80's following ambulation however quickly recovers. Port accessed and heparinized when not in use. Bilat edema, patient refuses SCDs, left calf more swollen with redness outlined. There is a [id number] wound on the lower left calf.
[2024-04-06] MEDS: PROCHLORPERAZINE 10 MG TABLET PO (20:15)
[2024-04-06] MEDS: APIXABAN 5 MG TABLET PO (21:26)
[2024-04-07] VITALS (7 sets, daily range): BP systolic 123–131; BP diastolic 71–81; PULSE 81–98; RESP 17–20; TEMP 36.5–37; O2SAT 92–97; BMI 35.6
[2024-04-07] MEDS: PIPERACILLIN/TAZOBACTAM 3.375 GM in 0.9 % SODIUM CHLORIDE Mini-bag 100 ML IVPB ×4 (05:56→23:10)
[2024-04-07 06:16] LABS: HCO3 VBG 44 mmol/L (21-28); PO2 VBG 39.8 mmHG (25-47); pH VBG 7.388 (7.32-7.43)
[2024-04-07 06:21] LABS: PCO2 VBG 72 mmHG (40-50)
[2024-04-07] MEDS: ONDANSETRON ODT 4 MG TAB 8 MG PO (06:21)
[2024-04-07 06:24] LABS: Basophils Absolute Auto 0.02 K/uL (0.00-0.30); Basophils Percent Auto 0.2 % (0.0-3.0); Eosinophils Absolute Auto 0.11 K/uL (0.00-0.50); Eosinophils Percent Auto 1.1 % (0.0-7.0); Hematocrit 39.3 % (37.0-53.0); Hemoglobin* 12.1 gm/dL (13.5-17.5); Immature Granulocytes Abs Auto 0.06 K/uL (0.00-0.30); Immature Granulocytes Pct Auto 0.6 %; Lymphocytes Percent Auto 8.5 % (20-44); Mean Corpuscular HGB Conc 31 gm/dL (32-36); Mean Corpuscular Hemoglobin 32 pg (26-34); Mean Corpuscular Volume 103 fL (80-100); Monocytes Percent Auto 7.5 % (0.0-11.0); Neutrophils Percent Auto 82.1 % (42.0-72.0); Platelet Count* 214 K/uL (140-440); RDW Coefficient of Variation % 14.2 % (11.5-15.5); White Blood Count* 9.99 K/uL (4.50-11.00)
[2024-04-07 06:32] LABS: Slide Review Reflex No
[2024-04-07] MEDS: HEPARIN 500 UNIT/5 ML SYRINGE IVF ×6 (06:50→23:59)
[2024-04-07 06:59] LABS: Albumin* 4.2 g/dL (3.3-5.0); Chloride* 89 mmol/L (96-114); Sodium* 134 mmol/L (135-149)
[2024-04-07 07:02] LABS: Creatinine* 1.1 mg/dL (0.5-1.5); Est. Creatinine Clearance* 66.06; Estimated Glomerular Filt Rate 74 ml/min
[2024-04-07 07:03] LABS: Alanine Aminotransferase* 22 U/L (4-50); Alkaline Phosphatase* 65 U/L (40-150); Aspartate Amino Transferase* 20 U/L (12-35); Bilirubin Total* 1.1 mg/dL (0.1-1.5); Blood Urea Nitrogen* 20 mg/dL (7-30); Glucose* 131 mg/dL (60-115)
[2024-04-07 07:04] LABS: Calcium* 8.8 mg/dL (8.4-10.6)
[2024-04-07 07:10] LABS: Anion Gap 5 mEq/L (7-15); Carbon Dioxide* 40 mmol/L (20-32)
[2024-04-07 07:15] LABS: NT Pro B Type NatriureticPept* 275 pg/mL
[2024-04-07 07:16] LABS: Troponin I* 0.01 ng/mL (0.01-0.04)
[2024-04-07 07:20] LABS: Procalcitonin* 0.19 ng/mL (<0.50)
[2024-04-07 07:22] LABS: C Reactive Protein* 20.5 mg/dL (0.5-1.0)
[2024-04-07 07:44] LABS: Hemoglobin A1C* 5.4 % (0-5.6)
--- NOTE | 2024-04-07 08:17 | PC.NURSE ---
End of shift note ([id number]) Patient pleasant, alert and cooperative. Ambulates independently in room. Denied pain. Given PRN Compazine and Zofran for c/o nausea.
[2024-04-07] MEDS: predniSONE 20 MG TABLET 60 MG PO (08:24)
[2024-04-07] MEDS: POTASSIUM BICARB 25 MEQ EFFERVESCENT TAB PO (08:24)
[2024-04-07] MEDS: APIXABAN 5 MG TABLET PO ×2 (09:21→21:48)
[2024-04-07] MEDS: FUROSEMIDE 10 MG/ML inj 40 MG IVP ×2 (09:22→21:48)
--- NOTE | 2024-04-07 09:50 | P.IMPN_ITS ---
Progress Note: A&P Assessment and plan (1) Cellulitis of left leg: Problem details: -continue Zosyn. MRSA screen pending. Wound culture obtained, preliminary shows gram negative rods. Outlined erythema. Receding, hospital day 2. -trend white blood cell counts and inflammatory markers and clinical response. Status: Acute (2) Acute dyspnea: Problem details: -single-view chest x-ray in the ED question superimposed infection verses pulmonary edema. -CTA reassuring for chronic lung disease, unchanged. No pneumonia or pulmonary edema noted. -echo reassuring. No obvious pulmonary hypertension. Mild aortic stenosis. -BNP is reassuring Status: Acute (3) Chronic hypoxic respiratory failure, on home oxygen therapy: Problem details: -longstanding. CO2 retention is not new. -keep oxygen at 3 L, appreciate help of RT -diuresis Status: Acute (4) Edema: Problem details: -home dose of Lasix is 20 mg p.o. q.day -ER administered 60 mg IV, I will follow-up with 40 mg IV for a total of 100 mg IV on day of admission. Continue on day 2 with 40 mg of IV Lasix b.i.d.. Transition oral Lasix on hospital day 3. -Potassium supplementation need presumed and ordered -daily weights -trend labs Status: Chronic (5) Goblet cell carcinoid: Problem details: - Adenocarcinoma of appendix dx 2019. Recurrence with peritoneal metastases, most prominent along the mid to lower abdomen noted 03/2023. 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 Follows with Oncology at [place] -currently between cycles of chemotherapy which are Q 4 weeks. Status: Acute (6) Chronic pulmonary aspergillosis: Problem details: - on chronic steroid therapy, follows with Pulmonology at [place] - increased steroids to 60 mg p.o. 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 q.day. Starting 60 mg p.o. prednisone on hospital day 2. Status: Chronic Subjective Date Seen: 04/07/24 Interval history: Daily Progress Note - Hospital Medicine Day #: 2 CC: cellulitis, immunocompromised, severe lymphedema, chronic lung disease OVERNIGHT UPDATES FROM STAFF & MED, LAB, IMAGING UPDATES Mild to moderate improvement overnight. Left leg is still tense and painful. -elevated white count has resolved. CRP is up trending. -vital signs are all stable. Oxygen support his baseline. Objective: Alert. Comfortable. Vitals: see above Lungs: Expiratory wheezes Cardiac: S1S2. Extremities: Left calf and anterior garcia demonstrate receding erythema. Tense edema is still present. Wound is unchanged. Small hematoma proximal to wound unchanged. Disposition/Potential discharge - Likely to return to previous living situation. Exam Const: Vital Signs, click to edit/add: Vital Signs - 24 hr 04/06/24 10:00 04/06/24 10:00 04/06/24 12:05 Temperature 98.6 F Pulse Rate Pulse Rate [Left P ulse Oximeter] 115 H Pulse Rate [Right Pulse Oximeter] 107 H Respiratory Rate 28 H 18 Blood Pressure [Le ft Arm] 158/75 H Blood Pressure [Ri ght Upper Arm] 151/74 H Pulse Oximetry 96 92 Oxygen Delivery Me thod Nasal Cannula Nasal Cannula Oxygen Flow Rate 3 2.5 04/06/24 12:22 04/06/24 12:57 04/06/24 13:37 Temperature Pulse Rate Pulse Rate [Left P ulse Oximeter] Pulse Rate [Right Pulse Oximeter] Respiratory Rate 18 18 Blood Pressure [Le ft Arm] Blood Pressure [Ri ght Upper Arm] Pulse Oximetry 95 96 92 Oxygen Delivery Me thod Nasal Cannula Nasal Cannula Oxygen Flow Rate 2 2 3 04/06/24 14:30 04/06/24 15:12 04/06/24 19:40 Temperature 98.9 F 98.6 F Pulse Rate 113 H Pulse Rate [Left P ulse Oximeter] 114 H 114 H Pulse Rate [Right Pulse Oximeter] Respiratory Rate 18 21 Blood Pressure [Le ft Arm] 140/79 H 125/76 Blood Pressure [Ri ght Upper Arm] Pulse Oximetry 95 95 Oxygen Delivery Me thod Nasal Cannula Nasal Cannula Oxygen Flow Rate 2 2 04/06/24 23:00 04/06/24 23:00 04/07/24 01:55 Temperature 99.0 F Pulse Rate 96 Pulse Rate [Left P ulse Oximeter] 106 H Pulse Rate [Right Pulse Oximeter] Respiratory Rate 21 21 Blood Pressure [Le ft Arm] 117/73 Blood Pressure [Ri ght Upper Arm] Pulse Oximetry 94 Oxygen Delivery Me thod Nasal Cannula Oxygen Flow Rate 2 04/07/24 03:00 04/07/24 07:00 04/07/24 07:00 Temperature 98.6 F 98.2 F Pulse Rate Pulse Rate [Left P ulse Oximeter] 92 93 93 Pulse Rate [Right Pulse Oximeter] Respiratory Rate 18 18 18 Blood Pressure [Le ft Arm] 128/78 131/71 Blood Pressure [Ri ght Upper Arm] Pulse Oximetry 95 96 Oxygen Delivery Me thod Nasal Cannula Nasal Cannula Oxygen Flow Rate 2 2 04/07/24 07:00 Temperature Pulse Rate 85 Pulse Rate [Left P ulse Oximeter] Pulse Rate [Right Pulse Oximeter] Respiratory Rate Blood Pressure [Le ft Arm] Blood Pressure [Ri ght Upper Arm] Pulse Oximetry Oxygen Delivery Me thod Oxygen Flow Rate Labs Labs: Laboratory Results - last 24 hr 04/06/24 04/06/24 04/07/24 09:40 09:50 06:05 WBC 11.10 H 9.99 RBC 3.83 L 3.80 L Hgb 12.4 L 12.1 L Hct 40.0 39.3 MCV 104 H 103 H MCH 32 32 MCHC 31 L 31 L RDW Coeff of Oma 14.3 14.2 Plt Count 300 214 Neut % (Auto) 82.8 H 82.1 H Lymph % (Auto) 8.6 L 8.5 L [place] % (Auto) 5.3 7.5 Eos % (Auto) 2.2 1.1 Baso % (Auto) 0.2 0.2 Neut # (Auto) 9.20 H 8.20 H Lymph # (Auto) 1.00 0.80 L [place] # (Auto) 0.60 0.70 Eos # (Auto) 0.20 0.11 Baso # (Auto) 0.00 0.02 Abs Immat Gran (auto) 0.10 0.06 Imm/Tot Granulo (auto) 0.9 0.6 VBG pH 7.388 VBG pCO2 72 H* VBG pO2 39.8 VBG HCO3 44 H Sodium 135 134 L Potassium 4.9 4.0 Chloride 95 L 89 L Carbon Dioxide 40 H 40 H Anion Gap 0 L 5 L BUN 21 20 Creatinine 0.9 1.1 Estimated Creat Clear 72.66 66.06 Estimated GFR 94 74 Glucose 104 131 H Hemoglobin A1c 5.4 Calcium 8.8 8.8 Total Bilirubin 1.1 AST 20 ALT 22 Alkaline Phosphatase 65 Troponin I 0.01 C-Reactive Protein 2.8 H 20.5 H NT-Pro-B Natriuret Pep 173 275 Total Protein 7.0 Albumin 4.2 Procalcitonin 0.11 0.19 Lab Acknowledgement Test Added
--- NOTE | 2024-04-07 09:59 | P.EN_ITS ---
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 superimposed cellulitis noted.
--- NOTE | 2024-04-07 09:59 | PM.EN ---
Chart Event Note Date Seen: 04/06/24 Chart Event Note: Day of Admission pictures; left leg trauma [address]; nonhealing open wound with hematoma proximally. superimposed cellulitis noted.
[2024-04-07] MEDS: ACETAMINOPHEN 325 MG TABLET PO (10:39)
[2024-04-07] MEDS: PROCHLORPERAZINE 10 MG TABLET PO (13:40)
[2024-04-07] MEDS: ACETAMINOPHEN 650 MG TABLET ER 1300 MG PO (16:52)
[2024-04-07] MEDS: 0.9 % SODIUM CHLORIDE 250 ml IV (17:42)
--- NOTE | 2024-04-07 19:24 | PC.NURSE ---
End of shift: patient alert and oriented, pleasant and cooperative. Both legs wrapped with ricardo bandage, removed for a break per patient request, replaced with noe socks per patient request. tolerating well. wound on lower left leg covered with Mepilex. Ice and elevation recommended per MD. Patient encouraged to ambulate hallway and do ankle pumps. Denied the need for pain meds, Prn tylenol administered. Port hep locked.
[2024-04-07] MEDS: SODIUM CHLORIDE 0.9 % (FLUSH) 10 ML SYRINGE 5 ML IVF (21:49)
--- NOTE | 2024-04-07 23:06 | CRLHL7_ITS ---
For Patients: As a result of the Century Cures Act, medical imaging exams and procedure reports are released immediately into your electronic medical record. You may view this report before your referring provider. If you have questions, please contact your health care provider. Indication: Pain, swelling Technique: DVT ultrasound of the right lower extremity. Grayscale and color Doppler imaging utilized. Compression and augmentation as clinically warranted. Comparison: None Findings: All vessels are grossly compressible without evidence of filling defect to suggest DVT. No superficial thrombosis appreciated. Soft tissues are unremarkable. Impression: No significant sonographic abnormality appreciated. Dictated by Kendrick Forbes MD @ 04/08/2024 1:59:49 AM (Electronically Signed)
--- NOTE | 2024-04-07 23:06 | W.PM.CROSSCO ---
Subjective Subjective Interval history: pt c/o right leg pain; will order venous doppler US and requip for possible RLS
[2024-04-08] VITALS (7 sets, daily range): BP systolic 129–149; BP diastolic 73–97; PULSE 77–99; RESP 16–18; TEMP 36.4–36.9; O2SAT 93–98
[2024-04-08] MEDS: ACETAMINOPHEN 650 MG TABLET ER 1300 MG PO ×3 (00:16→18:53)
[2024-04-08] MEDS: ROPINIROLE HCL 0.25 MG TABLET PO (00:18)
[2024-04-08] MEDS: PIPERACILLIN/TAZOBACTAM 3.375 GM in 0.9 % SODIUM CHLORIDE Mini-bag 100 ML IVPB (04:33)
[2024-04-08] MEDS: HEPARIN 500 UNIT/5 ML SYRINGE IVF (05:14)
--- NOTE | 2024-04-08 05:32 | PC.NURSE ---
Patient pleasant, alert and cooperative. Reported bilateral leg cramps; right leg worse. MD updated. Ultrasound of right leg and ropinirole?ordered. Ultrasound negative. SCDs placed for 2-3 hours, then pt refused as they were bothering him.?Ropinirole and walking helpful with leg cramps. Patient reports he has been able to sleep without leg cramps waking him up. Dressing to left leg clean, dry and intact.?
[2024-04-08 06:35] LABS: Hematocrit 35.2 % (37.0-53.0); Mean Corpuscular HGB Conc 31 gm/dL (32-36); Mean Corpuscular Hemoglobin 32 pg (26-34); Mean Corpuscular Volume 103 fL (80-100); Platelet Count* 184 K/uL (140-440); Red Blood Count 3.43 m/uL (4.30-5.90); White Blood Count* 9.81 K/uL (4.50-11.00)
[2024-04-08 06:37] LABS: Slide Review Reflex No
[2024-04-08 06:58] LABS: Chloride* 92 mmol/L (96-114); Potassium* 3.8 mmol/L (3.6-5.1); Sodium* 134 mmol/L (135-149)
[2024-04-08 07:01] LABS: Blood Urea Nitrogen* 21 mg/dL (7-30); Est. Creatinine Clearance* 72.66; Estimated Glomerular Filt Rate 83 ml/min; Glucose* 123 mg/dL (60-115)
[2024-04-08 07:02] LABS: Calcium* 8.7 mg/dL (8.4-10.6)
[2024-04-08 07:17] LABS: Anion Gap 1 mEq/L (7-15)
[2024-04-08 07:18] LABS: Carbon Dioxide* 41 mmol/L (20-32)
[2024-04-08] MEDS: predniSONE 20 MG TABLET 40 MG PO (08:03)
[2024-04-08] MEDS: FUROSEMIDE 40 MG TABLET PO (08:04)
[2024-04-08] MEDS: APIXABAN 5 MG TABLET PO ×2 (09:00→21:19)
--- NOTE | 2024-04-08 09:38 | PM.IMPN1 ---
Progress Note: A&P Assessment and plan (1) Cellulitis of left leg: Problem details: -change zosyn to rocephin. MRSA screen negative. Wound culture growing enterobacter aerogenes. swelling is much improved. -one more hospital day needed. -suspect underlying neuropathy is complicating the acute clinical picture. Status: Acute (2) Acute dyspnea: Problem details: -single-view chest x-ray in the ED question superimposed infection verses pulmonary edema. -CTA reassuring for chronic lung disease, unchanged. No pneumonia or pulmonary edema noted. -echo reassuring. No obvious pulmonary hypertension. Mild aortic stenosis. -BNP is reassuring -04/08 improved and back to baseline. Status: Acute (3) Chronic hypoxic respiratory failure, on home oxygen therapy: Problem details: -longstanding. CO2 retention is not new. -keep oxygen at 3 L, appreciate help of RT -diuresis and prednisone burst helpful Status: Acute (4) Edema: Problem details: -not c/w with CHF; venous stasis; peripheral edema worsened with chemo, sedentary lifestyle -home dose of Lasix is 20 mg p.o. q.day -ER administered 60 mg IV, I will follow-up with 40 mg IV for a total of 100 mg IV on day of admission. Continue on day 2 with 40 mg of IV Lasix b.i.d.. 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 Follows with Oncology at [place] -currently between cycles of chemotherapy which are Q 4 weeks. Status: Acute (6) Chronic pulmonary aspergillosis: Problem details: - on chronic steroid therapy, follows with Pulmonology at [place] - increased steroids to 60 mg p.o. q.day -->40mg on 04/08. 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 q.day. Starting 60 mg p.o. prednisone on hospital day 2. 40mg on hospital day 3. Status: Chronic (8) Peripheral neuropathy: Problem details: -consider gabapentin trial. -Dr. Anne to address after acute edema and infection Status: Acute Subjective Date Seen: 04/08/24 Interval history: Daily Progress Note - Hospital Medicine Day #: 3 CC: cellulitis, immunocompromised, severe lymphedema, chronic lung disease OVERNIGHT UPDATES FROM STAFF & MED, LAB, IMAGING UPDATES leg swelling down nicely. erythema receding. Pain with ambulation (w/ intermittent calf cramps) reported, overnight MD ordered RIGHT sided dvt u/s. negative. -elevated white count has resolved. CRP is now downtrending (20.5 -> 19) -vital signs are all stable. Oxygen support his baseline. Objective: Alert. Comfortable. I do note extreme sensitivity to touch and removal of his compression socks. Vitals: see above Lungs: Expiratory wheezes Cardiac: S1S2. Extremities: Left calf and anterior garcia demonstrate receding erythema. edema is improved. Wound is smaller. Small hematoma proximal to wound unchanged. Disposition/Potential discharge - Likely to return to previous living situation. Exam Const: Vital Signs, click to edit/add: Vital Signs - 24 hr 04/07/24 11:00 04/07/24 15:00 04/07/24 15:00 Temperature 98.2 F 98.2 F Pulse Rate Pulse Rate [Left P ulse Oximeter] 93 98 98 Respiratory Rate 18 18 18 Blood Pressure [Le ft Arm] 123/74 127/77 Blood Pressure [Ri ght Arm] Pulse Oximetry 92 95 Oxygen Delivery Me thod Nasal Cannula Nasal Cannula Oxygen Flow Rate 2 2 04/07/24 15:00 04/07/24 19:00 04/07/24 23:00 Temperature 97.9 F Pulse Rate 85 81 Pulse Rate [Left P ulse Oximeter] 98 Respiratory Rate 20 Blood Pressure [Le ft Arm] 129/81 Blood Pressure [Ri ght Arm] Pulse Oximetry 95 Oxygen Delivery Me thod Nasal Cannula Oxygen Flow Rate 2 04/07/24 23:00 04/08/24 03:00 04/08/24 08:06 Temperature 97.7 F 97.6 F 97.6 F Pulse Rate Pulse Rate [Left P ulse Oximeter] 83 77 80 Respiratory Rate 17 16 18 Blood Pressure [Le ft Arm] 129/81 129/82 Blood Pressure [Ri ght Arm] 132/74 Pulse Oximetry 97 98 97 Oxygen Delivery Me thod Room Air Room Air Nasal Cannula Oxygen Flow Rate 2 04/08/24 08:06 Temperature Pulse Rate Pulse Rate [Left P ulse Oximeter] 80 Respiratory Rate 18 Blood Pressure [Le ft Arm] Blood Pressure [Ri ght Arm] Pulse Oximetry Oxygen Delivery Me thod Oxygen Flow Rate Labs Labs: Laboratory Results - last 24 hr 04/08/24 06:21 WBC 9.81 RBC 3.43 L Hgb 11.0 L Hct 35.2 L MCV 103 H MCH 32 MCHC 31 L Plt Count 184 Sodium 134 L Potassium 3.8 Chloride 92 L Carbon Dioxide 41 H* Anion Gap 1 L BUN 21 Creatinine 1.0 Estimated Creat Clear 72.66 Estimated GFR 83 Glucose 123 H Calcium 8.7 C-Reactive Protein 19.0 H
[2024-04-08] MEDS: cefTRIAXone 1 GM in 0.9 % SODIUM CHLORIDE Mini-bag 100 ML IVPB (10:33)
[2024-04-08] MEDS: SODIUM CHLORIDE 0.9 % (FLUSH) 10 ML SYRINGE 5 ML IVF ×2 (10:33→21:19)
--- NOTE | 2024-04-08 14:14 | PC.NURSE ---
End of Shift: Patient pleasant and cooperative. Patient vitally stable, lung with crackles and wheezes, BS WNL, Port SL. Patient on 2 L NC with sats in the mid 90s. Patient independent in room. Patient denies left leg pain but does have pain with palpation. Tefla is applied to left leg wound held in place by compression stockings. Patient tolerating regular diet, urinating, and had 1 BM. Patient Left leg is slightly pink, warm and tender. Patient has been up in chair napping on and off.
--- NOTE | 2024-04-08 14:38 | PM.EN ---
Chart Event Note Date Seen: 04/08/24 Chart Event Note: f/u leg day 3
[2024-04-08] MEDS: ONDANSETRON ODT 4 MG TAB 8 MG PO (18:53)
[2024-04-09 02:49] VITALS: BP 150/88; PULSE 89; RESP 18; TEMP 36.5; O2SAT 97
--- NOTE | 2024-04-09 05:21 | PC.NURSE ---
Shift note: Pt is alert and oriented, independent in room. No pain reported and vitally stable. Dressing to the left leg appeared clean ands dry. Pt had adequate sleep.
[2024-04-09 07:19] LABS: Hematocrit 34.9 % (37.0-53.0); Hemoglobin* 10.6 gm/dL (13.5-17.5); Mean Corpuscular HGB Conc 30 gm/dL (32-36); Mean Corpuscular Hemoglobin 32 pg (26-34); Mean Corpuscular Volume 105 fL (80-100); Platelet Count* 206 K/uL (140-440); Red Blood Count 3.32 m/uL (4.30-5.90); White Blood Count* 6.64 K/uL (4.50-11.00)
[2024-04-09 07:27] LABS: Slide Review Reflex No
[2024-04-09 07:29] LABS: Chloride* 96 mmol/L (96-114)
[2024-04-09 07:30] LABS: Potassium* 3.9 mmol/L (3.6-5.1); Sodium* 137 mmol/L (135-149)
[2024-04-09 07:32] LABS: Creatinine* 0.9 mg/dL (0.5-1.5); Est. Creatinine Clearance* 72.66; Estimated Glomerular Filt Rate 94 ml/min
[2024-04-09] MEDS: FUROSEMIDE 40 MG TABLET PO (07:32)
[2024-04-09] MEDS: predniSONE 20 MG TABLET 40 MG PO (07:32)
[2024-04-09 07:33] LABS: Blood Urea Nitrogen* 21 mg/dL (7-30); Calcium* 8.9 mg/dL (8.4-10.6); Glucose* 97 mg/dL (60-115)
[2024-04-09 07:40] VITALS: BP 132/84; PULSE 86; RESP 20; TEMP 36.6; O2SAT 98
[2024-04-09 07:40] LABS: Anion Gap 2 mEq/L (7-15); Carbon Dioxide* 39 mmol/L (20-32)
[2024-04-09 07:42] VITALS: PULSE 86; RESP 20
[2024-04-09 07:51] LABS: C Reactive Protein* 11.7 mg/dL (0.5-1.0)
[2024-04-09] MEDS: APIXABAN 5 MG TABLET PO (08:42)
[2024-04-09] MEDS: SODIUM CHLORIDE 0.9 % (FLUSH) 10 ML SYRINGE 5 ML IVF (08:42)
[2024-04-09] MEDS: cefTRIAXone 1 GM in 0.9 % SODIUM CHLORIDE Mini-bag 100 ML IVPB (09:46)
--- NOTE | 2024-04-09 11:04 | PC.NURSE ---
Discharge: Patient pleasant and cooperative, A&O. VSS, afebrile. SpO2 maintained above 90% on 2L O2. Patient is independent in the room. Patient denies pain this shift. Port de-accessed before discharge. Discharge instructions provided, all questions answered. Discharged to home with via wheelchair.
--- NOTE | 2024-04-09 17:12 | PM.DS1 ---
DS: Providers Provider Date Seen: 04/09/24 Date of admission: 04/06/24 14:06 Primary care physician: Oliver Anne MD Admitting Clinician: Elizabeth Bowman MD Attending Physician on discharge: David Chatman MD Date of Discharge: 04/09/24 DS: Diagnosis Discharge Diagnosis (1) Cellulitis of left leg: Status: Acute Problem details: Marked improvement on ceftriaxone. Culture grew Enterobacter aerogenes susceptible to ceftriaxone, quinolones, Sulfatrim (2) Acute dyspnea: Status: Acute Problem details: Clinically improved. Chronic hypoxic and hypercarbic respiratory failure. (3) Chronic hypoxic respiratory failure, on home oxygen therapy: Status: Acute Problem details: -longstanding. CO2 retention is not new. -keep oxygen at 3 L, appreciate help of RT -diuresis and prednisone burst helpful (4) Edema: Status: Chronic Problem details: Marked improvement with increase furosemide and support hose. 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 Follows with Oncology at [place] -currently between cycles of chemotherapy which are Q 4 weeks. (6) Peripheral neuropathy: Status: Acute Problem details: -consider gabapentin trial. -Dr. Anne to address after acute edema and infection (7) Chronic steroid use: Status: Acute Problem details: Had temporary increase in prednisone during hospital stay. Now back to chronic home dose of prednisone 30 mg every other day alternating with 10 mg every other day DS: Summary Hospital Course Hospital Course: 68-year-old Don, presents to our emergency room with increasing left leg pain and redness. 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 He also has chronic lung disease and is on chronic oxygen. He saw his PCP yesterday and was diagnosed with a nonhealing superficial wound on the lateral left calf. He was started on Keflex and oral Lasix. He had a nearly 30 lb weight gain in recent weeks. Apparently he bumped his left leg about 3 weeks ago on the side of his truck. Drainage only began from the wound in the last couple of days. He feels the redness and swelling has accelerated in the last few days as well. No fever. His shortness of breath is quite severe at baseline but it is potentially worse in the last few days. Chronic cough with green sputum is not new. Patient diagnosed with bilateral lower extremity edema, acute on chronic and cellulitis of the left lower extremity from his leg wound 3 weeks ago. Wound cultured Enterobacter aerogenes susceptible to ceftriaxone, quinolones, Sulfatrim. He was switched to ceftriaxone and had marked improvement in the redness and swelling of his leg. He is now anxious to go home. Discussed options for management of infection. He had had Levaquin this winter for respiratory infection and he was concerned it may have caused a problem with his tendon. He is certainly at risk for tendon problems with Levaquin and moderate dose steroid use. After discussion we elected to use Bactrim DS b.i.d. for 5 days. Pending his clinical course. Monitor CBC and basic metabolic panel for complications of Bactrim as well as complications of cellulitis and his increased furosemide dose. Status at Discharge Functional status at discharge: independent ambulation Overall status at discharge: patient is progressing back to baseline Time Spent with Patient Time attestation: Total time spent providing and/or coordinating discharge services: 40 minutes Time spent: Greater than 30 minutes Exam Narrative: Exam Narrative: He is alert and appears in no distress. Breathing is unlabored. Legs with bilateral 1+ edema. No erythema on the right. Left leg has mild erythema now within the lines of demarcation for his admission cellulitis. Small 1 cm ulcer on his anterior garcia with minimal drainage. Const: Vital Signs, click to edit/add: Vital Signs - 24 hr 04/08/24 19:00 04/08/24 23:00 04/08/24 23:00 Temperature 98.4 F 97.7 F Pulse Rate [Left P ulse Oximeter] 86 85 85 Respiratory Rate 18 18 18 Blood Pressure [Ri ght Arm] 129/77 149/97 H Pulse Oximetry 95 93 Oxygen Delivery Me thod Room Air Room Air Oxygen Flow Rate 04/09/24 02:49 04/09/24 07:40 04/09/24 07:42 Temperature 97.7 F 97.8 F Pulse Rate [Left P ulse Oximeter] 89 86 86 Respiratory Rate 18 20 20 Blood Pressure [Ri ght Arm] 150/88 H 132/84 Pulse Oximetry 97 98 Oxygen Delivery Me thod Room Air Nasal Cannula Oxygen Flow Rate 2 Documenting provider has reviewed patient's vital signs: yes DS: Data Data Completed and Pending Completed studies during hospitalization: Procedures Introduction of Other Gas into Respiratory Tract, Via Natural or Artificial Opening (09/23/23) Labs on day of discharge: Labs from last 24 hours 04/09/24 Unknown WBC 6.64 RBC 3.32 L Hgb 10.6 L Hct 34.9 L MCV 105 H MCH 32 MCHC 30 L Plt Count 206 Sodium 137 Potassium 3.9 Chloride 96 Carbon Dioxide 39 H Anion Gap 2 L BUN 21 Creatinine 0.9 Estimated Creat Clear 72.66 Estimated GFR 94 Glucose 97 Calcium 8.9 C-Reactive Protein 11.7 H Preliminary micro results at discharge 04/06/24 11:08 Wound Culture - Preliminary Leg Left Enterobacter aerogenes Discharge Plan Discharge Disposition: Home, Self-Care Date of Admission: 04/06/24 14:06 Attending Provider on Discharge: Terry Chatman Primary Care Provider: Oliver Anne Condition: Improved Anticipated Discharge Date/Time: 04/09/24 09:33 Discharge Medications: New sulfamethoxazole-trimethoprim 800-160 mg tablet 1 tab PO BID Qty: 10 0RF Continued amoxicillin 875 mg tablet 875 mg PO BID PRN Eliquis 5 mg tablet 5 mg PO BID ondansetron HCl 8 mg tablet 8 mg PO Q8H PRN (Reason: nausea/vomiting) loperamide 2 mg capsule 4 mg PO QID PRN (Reason: loose stool) prednisone 5 mg tablet 10 - 30 mg PO DAILY Hold Instructions: Resume on 09/30/23. resume home dose of Prednisone after steroid taper Rx Instructions: 10 mg and 30mg alternating daily prochlorperazine maleate 10 mg tablet 10 mg PO Q6H PRN (Reason: nausea/vomiting) fluticasone propion-salmeterol [Advair Diskus] 500-50 mcg/dose blister with device 1 inh inhalation BID albuterol sulfate [Ventolin HFA] 90 mcg/actuation HFA aerosol inhaler 2 puff INHALATION Q6H PRN (Reason: wheezing) Changed furosemide 20 mg tablet 40 mg PO QAM PRN (Reason: for edema) Qty: 90 3RF Discontinued cephalexin 500 mg capsule 500 mg PO TID 7 Days Qty: 21 0RF Discharge Orders: Discharge Order (Routine); Ordered 04/09/24 Ordered By: Terry Chatman Patient Education: Sulfamethoxazole/Trimethoprim (By mouth), Cellulitis (GEN) Additional Instructions: wear support hose when up during the day. Call Dr Chatman [phone] if concerns or questions before you see Dr Anne Activity Level: Activity as Tolerated Discharge Diet: Regular Follow Up Appointments: Oliver Anne MD [Primary Care Provider] - 04/12/24 3:30 pm ([facility] for follow up appointment with PCP. Labs are scheduled on 04/12 @8:30 AM at [facility]) Forms: [employer] Info Instructions
== END 2024-04-09 11:00 | disposition home or self-care (01) | DRG 603 ==
LOC: ED 12:03 → MEDSURG 12:05
PROVIDERS: Admitting Provider Family Medicine; Emergency Provider Family Medicine; PCP Internal Medicine; Visit Provider Family Medicine
DX: L03.116 Cellulitis of left lower limb (principal); L97.829 Non-pressure chronic ulcer of other part of left lower leg with unspecified severity; B44.1 Other pulmonary aspergillosis; J96.11 Chronic respiratory failure with hypoxia; J96.12 Chronic respiratory failure with hypercapnia; C18.1 Malignant neoplasm of appendix; C78.6 Secondary malignant neoplasm of retroperitoneum and peritoneum; Z16.24 Resistance to multiple antibiotics; D84.81 Immunodeficiency due to conditions classified elsewhere; S81.802A Unspecified open wound, left lower leg, initial encounter; B96.89 Other specified bacterial agents as the cause of diseases classified elsewhere; Z99.81 Dependence on supplemental oxygen; R60.9 Edema, unspecified; Z79.52 Long term (current) use of systemic steroids; W22.8XXA Striking against or struck by other objects, initial encounter; G62.9 Polyneuropathy, unspecified; I35.0 Nonrheumatic aortic (valve) stenosis; I89.0 Lymphedema, not elsewhere classified
CPT/HCPCS: 36415; 71045; 71275; 80048; 80053; 82803; 83036; 83605; 83880; 84145; 84484; 85025; 85027; 86140; 87070; 87077; 87081; 87185; 87186; 93005; 93306; 93971; 94761; 97161; 97165; 99285; A9270; J0696; J1642; J1940; J2543; J7050; J7512; Q9967

== ENCOUNTER 2024-04-12 09:27 | Outpatient (CLI) | payer MEDICARE, BC, SELFPAY | END 2024-04-12 09:28 | disposition home or self-care (01) | LOC: NFLDREF 09:28 | PROVIDERS: PCP Internal Medicine; Visit Provider Internal Medicine | DX: Z13.228 Encounter for screening for other metabolic disorders (principal) | CPT/HCPCS: 80048; 80053 ==

== ENCOUNTER 2025-01-27 13:10 | Emergency (ER) | payer MEDICARE, BC, SELFPAY ==
[2025-01-27] VITALS (13 sets, daily range): BP systolic 164; BP diastolic 96; PULSE 80–104; RESP 20; TEMP 36.6; O2SAT 93–99; BMI 36.9
--- NOTE | 2025-01-27 13:42 | ED_ITS ---
HPI - General Adult General Date Seen: 01/27/25 Chief complaint: Shortness of Breath/Dyspnea Stated complaint: Shortness of breath Time Seen by Provider: 01/27/25 13:26 History of Present Illness HPI narrative: 69-year-old male with a history of chronic pulmonary aspergillosis hypoxic respiratory failure, on chronic steroids, also a history of goblet cell carcinoid (stomach cancer), presents to the ER today with worsening shortness breath for a week. Has already been given an antibiotic (amoxicillin ) and completed it. Yesterday started on Cipro because he had left over from a prescription last year. He is chronically on nasal cannula 2 L at home. He notes that he has a history of similar lung problems in the past and often gets antibiotics from his lung doctor to help him get better. He is also on chemotherapy for his stomach cancer. Last round of chemo was about 2 and half weeks ago. He typically does not suffer much bone marrow suppression or other problems from his chemo. This time he notes that he receives some nebulizers after chemo to try to prevent lung infections). Despite that he started developing worsening shortness of breath and cough about a week ago. Cough is largely nonproductive. No fever. He is having chest tightness but not any anterior chest pain. He has chronic swelling in his legs which is actually stable or perhaps slightly less so than normal lately. No asymmetric swelling. No no fevers. No GI symptoms. Related Data Home Medications ?Medication ?Instructions ?Recorded ?Confirmed albuterol sulfate 90 mcg/actuation 2 puff inhalation Q6H PRN wheezing 04/24/23 04/12/24 aerosol inhaler (Ventolin HFA) fluticasone 500 mcg-salmeterol 50 1 inh inhalation BID 04/24/23 01/27/25 mcg/dose blistr powdr for inhalation (Advair Diskus) prednisone 5 mg tablet 10 - 30 mg PO DAILY 04/24/23 01/27/25 prochlorperazine maleate 10 mg 10 mg PO Q6H PRN nausea/vomiting 04/24/23 01/27/25 tablet apixaban 5 mg tablet (Eliquis) 5 mg PO BID 04/06/24 01/27/25 ondansetron HCl 8 mg tablet 8 mg PO Q8H PRN nausea/vomiting 04/06/24 01/27/25 ciprofloxacin HCl 250 mg tablet 250 mg PO BID 01/27/25 01/27/25 Previous Rx's ?Medication ?Instructions ?Recorded furosemide 20 mg tablet 40 mg (2 x 20 mg) PO QAM PRN for 04/09/24 edema #90 tabs doxycycline monohydrate 100 mg 100 mg PO BID #14 caps 01/27/25 capsule prednisone 20 mg tablet 40 mg (2 x 20 mg) PO DAILY #10 tabs 01/27/25 Allergies Allergy/AdvReac Type Severity Reaction Status Date / Time sulfamethoxazole (From Allergy Unknown Verified 01/27/25 13:20 Bactrim) trimethoprim (From Bactrim) Allergy Unknown Verified 01/27/25 13:20 [facility] Medical History (Updated 01/27/25 @ 16:04 by Davon Sebastian MD) Leg ulcer ?L97.909 - Non-pressure chronic ulcer of unspecified part of unspecified lower leg with unspecified severity (ICD-10) Chronic steroid use Chronic hypoxic respiratory failure, on home oxygen therapy ?J96.11 - Chronic respiratory failure with hypoxia (ICD-10) ?Z99.81 - Dependence on supplemental oxygen (ICD-10) Chronic pulmonary aspergillosis ?B44.1 - Other pulmonary aspergillosis (ICD-10) Goblet cell carcinoid ?C18.1 - Malignant neoplasm of appendix (ICD-10) Blood clot due to device, implant, or graft ?T85.818A - Embolism due to other internal prosthetic devices, implants and grafts, initial encounter (ICD-10) Chronic steroid use Impingement syndrome of shoulder region ?M75.40 - Impingement syndrome of unspecified shoulder (ICD-10) Laceration of arm, left, complicated ?S41.112A - Laceration without foreign body of left upper arm, initial encounter (ICD-10) Edema ?R60.9 - Edema, unspecified (ICD-10) Diarrhea (04/24/23) ?R19.7 - Diarrhea, unspecified (ICD-10) Surgical History History of abdominal surgery ?Z98.890 - Other specified postprocedural states (ICD-10) Hx of appendectomy ?Z90.49 - Acquired absence of other specified parts of digestive tract (ICD- 10) S/P right colectomy ?Z90.49 - Acquired absence of other specified parts of digestive tract (ICD- 10) Social History Narrative: Lives with Anca (Medical decision maker if needed) outside of [place], 3 adult children. Has worked for [employer]. Nonsmoker, social ETOH without any history of withdrawal. Requests to not be intubated, trial of CPR okay. What is your current living situation?: I presently have a place to live Problems where you live: no known problems Problems where you live details: N/A In the past 12 months, utilities in danger of being shut off: no In past 12 months, lack of transportation kept you from medical appts, meetings, work, or getting things needed for daily living: no In the past 12 mos, have been you worried that your food would run out before you had money to buy more?: never true In the past 12 mos, the food you bought just didn't last and you didn't have money to buy more?: never true Smoking Status: Never smoker Do you use any of these nicotine containing products: None Second hand tobacco smoke exposure: No How often do you have a drink containing alcohol: 4 or more times a week Alcohol type: beer How often do you have six or more drinks on one occasion: Never AUDIT-C Alcohol total score: 4 Non-prescribed substance use: denies use Caffeine: No How often does anyone, including family, friends and others, physically hurt you : never How often does anyone, including family, friends and others, insult or talk down to you: never How often does anyone, including family, friends and others, threaten you with harm: never How often does anyone, including family, friends and others, scream or curse at you: never service: No Exam Narrative: Exam Narrative: Constitutional: Appears well-developed and well-nourished. Does show some facial signs of chronic steroid use.Alert. Conversant. Non toxic. HENT: Head: Atraumatic. Nose: Nose normal. Mouth/Throat: Oral mucosa is clear and moist. no trismus. Pharynx normal. Tonsils symmetric. No tonsillar enlargement, erythema, or exudate. Eyes: Conjunctivae normal. EOM normal. Pupils equal, round, and reactive to light. No scleral icterus. Neck: Normal range of motion. Neck supple. No tracheal deviation present. Cardiovascular: Normal rate, regular rhythm. No gallop. No friction rub. No murmur heard. Symmetric radial artery pulses Pulmonary/Chest: Effort normal. No stridor. No respiratory distress. Oxygenating in the low 90s on his baseline 2 L nasal cannula. Fairly diffuse wheezes and tight lung sounds throughout. Also rales in both mid and lower lung crook. Abdominal: Soft. No distension. No mass. No tenderness. No rebound. No guarding. Musculoskeletal: RUE: Normal range of motion. No tenderness. No deformity LUE: Normal range of motion. No tenderness. No deformity RLE: Normal range of motion. No edema. No tenderness. No deformity LLE: Normal range of motion. No edema. No tenderness. No deformity Neurological: Alert and oriented to person, place, and time. Normal strength. CN II-VII intact. No sensory deficit. GCS eye subscore is 4. GCS verbal subscore is 5. GCS motor subscore is 6. Normal coordination Skin: Skin is warm and dry. No rash noted. No pallor. Normal capillary refill. Psychiatric: Normal mood. Normal affect. Const: Vital Signs, click to edit/add: Vital Signs - 24 hr 01/27/25 13:17 01/27/25 13:30 01/27/25 13:45 Temperature 97.8 F Pulse Rate 93 92 Pulse Rate [Pulse Oximeter] 94 Respiratory Rate 20 Blood Pressure [Ri ght Upper Arm] 164/96 H Pulse Oximetry 93 96 97 Oxygen Delivery Me thod Nasal Cannula Nasal Cannula Nasal Cannula Oxygen Flow Rate 2 2 2 01/27/25 14:01 01/27/25 14:23 01/27/25 14:30 Temperature Pulse Rate 104 H 93 91 Pulse Rate [Pulse Oximeter] Respiratory Rate Blood Pressure [Ri ght Upper Arm] Pulse Oximetry 97 98 98 Oxygen Delivery Me thod Nasal Cannula Nasal Cannula Nasal Cannula Oxygen Flow Rate 2 2 2 01/27/25 14:46 01/27/25 15:00 01/27/25 15:15 Temperature Pulse Rate 92 84 80 Pulse Rate [Pulse Oximeter] Respiratory Rate Blood Pressure [Ri ght Upper Arm] Pulse Oximetry 96 97 97 Oxygen Delivery Me thod Nasal Cannula Nasal Cannula Nasal Cannula Oxygen Flow Rate 2 2 2 01/27/25 15:30 01/27/25 15:45 01/27/25 16:00 Temperature Pulse Rate 90 96 81 Pulse Rate [Pulse Oximeter] Respiratory Rate Blood Pressure [Ri ght Upper Arm] Pulse Oximetry 96 99 98 Oxygen Delivery Me thod Nasal Cannula Nasal Cannula Nasal Cannula Oxygen Flow Rate 2 2 2 01/27/25 16:15 Temperature Pulse Rate 86 Pulse Rate [Pulse Oximeter] Respiratory Rate Blood Pressure [Ri ght Upper Arm] Pulse Oximetry 97 Oxygen Delivery Me thod Nasal Cannula Oxygen Flow Rate 2 Course Course ED Course: recheck -after DuoNeb says he feels somewhat better. Repeat lung exam still reveals wheezes but perhaps better aeration. Repeat DuoNeb ordered. Vital Signs Vital signs: Initial Vital Signs Temperature 97.8 F 01/27/25 13:17 Temperature Source Temporal Artery Scan 01/27/25 13:17 Pulse Rate 94 01/27/25 13:17 Respiratory Rate 20 01/27/25 13:17 Blood Pressure 164/96 H 01/27/25 13:17 Blood Pressure Mean 118 H 01/27/25 13:17 Blood Pressure Position Sitting 01/27/25 13:17 Pulse Oximetry 93 01/27/25 13:17 Oxygen Delivery Method Nasal Cannula 01/27/25 13:17 Oxygen Flow Rate 2 01/27/25 13:17 Vital Signs Temperature 97.8 F 01/27/25 13:17 Pulse Rate 94 01/27/25 13:17 Respiratory Rate 20 01/27/25 13:17 Blood Pressure 164/96 H 01/27/25 13:17 Pulse Oximetry 93 01/27/25 13:17 Oxygen Delivery Method Nasal Cannula 01/27/25 13:17 Oxygen Flow Rate 2 01/27/25 13:17 Temperature 97.8 F 01/27/25 13:17 Pulse Rate 86 01/27/25 16:15 Respiratory Rate 20 01/27/25 13:17 Blood Pressure 164/96 H 01/27/25 13:17 Pulse Oximetry 97 01/27/25 16:15 Oxygen Delivery Method Nasal Cannula 01/27/25 16:15 Oxygen Flow Rate 2 01/27/25 16:15 Medications Administered Medications: Discontinued Medications Generic Name Dose Route Start Last Admin Trade Name Freq PRN Reason Stop Dose Admin Albuterol/Ipratropium 1 neb 01/27/25 13:55 01/27/25 14:46 Iprat-Albut 0.5-2.5 Mg/3 Ml [facility] 01/27/25 13:56 1 neb ONCE ONE Administration Albuterol/Ipratropium 1 neb 01/27/25 15:41 01/27/25 16:04 Iprat-Albut 0.5-2.5 Mg/3 Ml Neb 01/27/25 15:42 1 neb ONCE ONE Administration Doxycycline Hyclate 100 mg 01/27/25 15:41 01/27/25 16:03 Doxycycline Hyclate 100 Mg PO 01/27/25 15:42 100 mg ONCE ONE Administration Medical Decision Making MDM Narrative Medical decision making narrative: This is a very pleasant 69-year-old male with chronic aspergillosis related lung disease and chronic hypoxic respiratory failure on 2 L at baseline also on chronic steroids presenting to the ER today with acute on chronic dyspnea and chest tightness that is been getting worse for about a week or so. The patient also has gastric cancer in his on chemotherapy with his most recent round of chemo about 2 and half weeks ago. Differential for symptoms is broad. First concern is for possible infection. Chest x-ray shows abnormalities that look grossly similar to previous imaging. No obvious new infiltrate. COVID/influenza/ RSV PCR is negative. At this point we suspect this probably is I pulmonary infection. Will treat with doxycycline 100 mg p.o. b.i.d. for 7 days ( [facility] per patient preference) Consider non pulmonary causes of shortness of breath Such as CHF. he does have chronic bilateral lower extremity edema and is chronically on furosemide for that. Legs are if anything stable to slightly less swollen than normal this week. No recent new swelling or weight gain. No asymmetric swelling to suggest DVT. Will hold off on D-dimer testing because he is highly likely to have an abnormal D-dimer given his chronic lung disease. At this point we feel that the risk associated with contrast nephropathy from iodinated contrast material and the risk of radiation exposure for the another chest CT for this patient would outweigh the benefit of the low likelihood of detecting a PE in this patient. He has substantial wheezing and cough suggesting that bronchospasm/ possible infection are the overwhelmingly likely cause for symptoms. EKG shows normal sinus rhythm and no ischemia. troponin undetectable. And terminal proBNP level is low. Patient did have significant wheeziness and his initial lung exam suggesting probably some bronchospasm. However he does not have a formal diagnosis of asthma or COPD. He notes that he does have a rescue albuterol inhaler which she uses from time to time. He did have some response to DuoNebs given here in the ER. Will increase his prednisone up to 40 mg per day for 5 days. Lab Data Labs: Lab Results 01/27/25 Range/Units 14:20 WBC 8.21 (4.50-11.00) K/uL RBC 4.05 L (4.30-5.90) m/uL Hgb 13.2 L (13.5-17.5) gm/dL Hct 41.9 (37.0-53.0) % MCV 104 H (80-100) fL MCH 33 (26-34) pg MCHC 32 (32-36) gm/dL RDW Coeff of Oma 13.8 (11.5-15.5) % Plt Count 233 (140-440) K/uL Neut % (Auto) 81.7 H (42.0-72.0) % Lymph % (Auto) 7.8 L (20-44) % [place] % (Auto) 7.1 (0.0-11.0) % Eos % (Auto) 1.1 (0.0-7.0) % Baso % (Auto) 0.2 (0.0-3.0) % Neut # (Auto) 6.70 (1.7-7.0) K/uL Lymph # (Auto) 0.60 L (0.90-2.90) K/uL [place] # (Auto) 0.60 (0.00-0.90) K/UL Eos # (Auto) 0.09 (0.00-0.50) K/uL Baso # (Auto) 0.02 (0.00-0.30) K/uL Abs Immat Gran (auto) 0.17 (0.00-0.30) K/uL Imm/Tot Granulo (auto) 2.1 % Sodium 139 (135-149) mmol/L Potassium 4.1 (3.6-5.1) mmol/L Chloride 91 L (96-114) mmol/L Carbon Dioxide 37 H (20-32) mmol/L Anion Gap 11 (7-15) mEq/L BUN 19 (7-30) mg/dL Creatinine 0.9 (0.5-1.5) mg/dL Estimated Creat Clear 71.68 Estimated GFR 94 ml/min Glucose 123 H (60-115) mg/dL Calcium 9.0 (8.4-10.6) mg/dL Troponin I < 0.01 (0.01-0.04) ng/mL NT-Pro-B Natriuret Pep 235 pg/mL SARS-CoV-2 (PCR) Negative SARS-CoV-2 (Negative) Influenza Type A (PCR) Negative PCR FLU A (Negative) Influenza Type B (PCR) Negative PCR FLU B (Negative) RSV (PCR) Negative PCR RSV (Negative) Imaging Data Chest x-ray: Attestation: I have reviewed the pertinent imaging results. Radiologist's impression: Findings/Impression: Cardiovascular and mediastinum: Mild cardiomegaly with right-sided Port-A-Cath with tip in the proximal right atrium. Lungs and pleural spaces: No pleural effusion or pneumothorax. Diffuse bilateral reticular interstitial prominence, greater centrally. Some degree of diffuse bronchiectasis also noted. This likely represents a constellation of bronchiectasis and associated fibrosis which appears grossly similar to the prior exam. Bones and soft tissues: No significant findings. ECG Data Attestation: I personally reviewed and interpreted this ECG as follows: Interpretation: Normal sinus rhythm Rate: 86 AK: 194 QRS axis: right superior axis deviation. Right ventricular hypertrophy. (Patient has chronic lung disease) ST segment/T wave: no acute ST segment elevation or depression. QTc: 459 Discharge Plan Discharge Clinical Impression: Atypical pneumonia, Acute bronchospasm Patient Disposition: Home, Self-Care Condition: Stable Instructions: Community Acquired Pneumonia (DC), Bronchospasm (ED) Additional Instructions: As we discussed, your chest x-ray does not show any large new sign of pneumonia. However it is possible you could have pneumonia in your lungs that is hit in from view on the x-ray because of your chronic lung disease. We are going to put you on a course of new antibiotics starting today. Your lungs are also quite wheezy which is from irritation and spasming of your bronchial tubes. You can treat this by using her albuterol inhaler 2 puffs every 2-4 hours. Also temporarily we will increase her dose of prednisone up to 40 mg by mouth daily for 5 days. Please return to the ER right away if you have worsening shortness of breath, worsening cough, new chest pain, or any concerns. Please follow-up with your regular doctor or your doctors at [facility] within 3-4 days for recheck. Prescriptions: New prednisone 20 mg tablet 40 mg PO DAILY Qty: 10 0RF doxycycline monohydrate 100 mg capsule 100 mg PO BID Qty: 14 0RF No Action Eliquis 5 mg tablet 5 mg PO BID ondansetron HCl 8 mg tablet 8 mg PO Q8H PRN (Reason: nausea/vomiting) furosemide 20 mg tablet 40 mg PO QAM PRN (Reason: for edema) Qty: 90 3RF ciprofloxacin HCl 250 mg tablet 250 mg PO BID prednisone 5 mg tablet 10 - 30 mg PO DAILY Rx Instructions: 10 mg and 30mg alternating daily prochlorperazine maleate 10 mg tablet 10 mg PO Q6H PRN (Reason: nausea/vomiting) fluticasone propion-salmeterol [Advair Diskus] 500-50 mcg/dose blister with device 1 inh inhalation BID albuterol sulfate [Ventolin HFA] 90 mcg/actuation HFA aerosol inhaler 2 puff INHALATION Q6H PRN (Reason: wheezing) Follow Up/Referrals: Oliver Anne MD [Primary Care Provider] - Stand Alone Forms: [employer] Info Instructions
--- NOTE | 2025-01-27 13:55 | CRLHL7_ITS ---
For Patients: As a result of the Century Cures Act, medical imaging exams and procedure reports are released immediately into your electronic medical record. You may view this report before your referring provider. If you have questions, please contact your health care provider. Indication: Cough and shortness of breath Technique: Chest 2 views Comparison: Chest x-ray 04/06/2024 Findings/Impression: Cardiovascular and mediastinum: Mild cardiomegaly with right-sided Port-A-Cath with tip in the proximal right atrium. Lungs and pleural spaces: No pleural effusion or pneumothorax. Diffuse bilateral reticular interstitial prominence, greater centrally. Some degree of diffuse bronchiectasis also noted. This likely represents a constellation of bronchiectasis and associated fibrosis which appears grossly similar to the prior exam. Bones and soft tissues: No significant findings. Dictated by Moreno White MD @ 01/27/2025 3:00:03 PM (Electronically Signed)
[2025-01-27 14:30] LABS: Basophils Absolute Auto 0.02 K/uL (0.00-0.30); Basophils Percent Auto 0.2 % (0.0-3.0); Eosinophils Absolute Auto 0.09 K/uL (0.00-0.50); Eosinophils Percent Auto 1.1 % (0.0-7.0); Hematocrit* 41.9 % (37.0-53.0); Hemoglobin* 13.2 gm/dL (13.5-17.5); Immature Granulocytes Abs Auto 0.17 K/uL (0.00-0.30); Immature Granulocytes Pct Auto 2.1 %; Lymphocytes Percent Auto 7.8 % (20-44); Mean Corpuscular HGB Conc 32 gm/dL (32-36); Mean Corpuscular Hemoglobin 33 pg (26-34); Mean Corpuscular Volume 104 fL (80-100); Monocytes Percent Auto 7.1 % (0.0-11.0); Neutrophils Percent Auto 81.7 % (42.0-72.0); Platelet Count* 233 K/uL (140-440); RDW Coefficient of Variation % 13.8 % (11.5-15.5); Red Blood Count* 4.05 m/uL (4.30-5.90); White Blood Count* 8.21 K/uL (4.50-11.00)
[2025-01-27 14:31] LABS: Slide Review Reflex No
--- OUTSIDE RECORDS SUMMARY | 2025-01-27 14:34 | XMS_ITS | Encounter Summary ---
Author Organization [facility] Address [address] [place] [id number] Care Team Providers Care Sandal Parts Assembler Name Role Phone Elsewhere, Pcp Primary Care Provider Unavailabl e Reason for Visit * Episode Based Medications (Routine) - Authorized Specialty Diagnoses / Procedures Referred By Contac t Referred To Contact Diagnoses Malignant Neoplasm Of Appendix (HCC) Medication Therapy Fci Not Anticoagulant Medication Therapy Countersinker Not Anticoagulant Procedures AL ONDANSETRON HCL INJECTION AL LEUCOVORIN CALCIUM INJECTION AL IRINOTECAN INJECTION AL FLUOROURACIL INJECTION Ellis Osorio M.D. Department of Oncology in [place], [place] [address] [place] [phone] Phone: tel: Referral ID Status Reason Start Date Expiration Date V isits Requested Visits Authorized [id number] Authorized 04/07/2023 09/20/2026 24 24 Encounter Details Date Type Department Care Team (Late st Contact Info) Description 01/11/2025 7:00 AM CDT Lab Department of Oncology in [place], [place] [address] [place] [phone] Dafne Guerrero, YOLANDA, C.N.P., M.S. [address] [place] [phone] Malignant Neoplasm Of Appendix (HCC) (Primary Dx); Medication Therapy Fci Not Anticoagulant; Medication Therapy Countersinker Not Anticoagulant Social History Tobacco Use Types Packs/Day Years Used Date Smoking Tobacco: Never Passive Smoke Exposure: Past Smokeless Tobacco: Never Passive Exposure Comments:Y ears & Years ago Alcohol Use Standard Drinks/Week Comments Yes 20 (1 standard drink = 0.6 oz pu re alcohol) Daily [facility] Utilities Answer Date Recorded In the past 12 months has th e electric, gas, oil, or water company threatened to shut off services in your home? No 12/28/2023 Humiliation, Afraid, Rape, and Kick questionnair e Answer Date Recorded Within the last year, have y ou been afraid of your partner or ex-partner? No 08/23/2022 Within the last year, have y ou been humiliated or emotionally abused in other ways by your partner or ex-partner? No Within the last year, have y ou been kicked, hit, slapped, or otherwise physically hurt by your partner or ex-partner? No 08/23/2022 Within the last year, have y ou been raped or forced to have any kind of sexual activity by your partner or ex-partner? No 08/23/2022 Social Connection and Isolation Panel [NHANES] A nswer Date Recorded In a typical week, how many times do you talk on the phone with family, friends, or neighbors? Once a week 08/23/2022 How often do you get together with friends or re latives? Once a week 08/23/2022 Attends [employer] Services Not on file 08/23 Do you belong to any clubs o r organizations such as faith groups, unions, fraternal or athletic groups, or school groups? No 08/23/2022 How often do you attend meet ings of the clubs or organizations you belong to? Never 08/23/2022 Are you , , di vorced, , never , or living with a partner? 08/23/2022 AUDIT-C Answer Date Recorded Q1: How often do you have a drink containing alcohol? 4 or more times a week 08/23/2022 Q2: How many drinks containi ng alcohol do you have on a typical day when you are drinking? 3 or 4 Q3: How often do you have si x or more drinks on one occasion? Less than monthly 08/23/2022 Overall Financial Resource Strain (CARDIA) Answe r Date Recorded How hard is it for you to pa y for the very basics like food, housing, medical care, and heating? Not hard at all 08/23/2022 PHQ-2 Answer Date Recorded PHQ-2 Score 0 08/03/2019 [facility] [place] of Occupat ional [facility] - Occupational Stress Questionnaire Answer Date Recorded Do you feel stress - tense, restless, nervous, or anxious, or unable to sleep at night because your mind is troubled all the time - these days? Not at all 08/23/2022 Exercise Vital Sign Answer Date Recorde d On average, how many days pe r week do you engage in moderate to strenuous exercise (like a brisk walk)? 0 days 12/28/2023 On average, how many minutes do you engage in exercise at this level? 0 min 12/28/2023 Hunger Vital Sign Answer Date Recorded Within the past 12 months, y ou worried that your food would run out before you got the money to buy more. Never true 12/28/19 24 Within the past 12 months, t he food you bought just didn't last and you didn't have money to get more. Never true 12/28/2023 PRAPARE - Transportation Answer Date Re corded In the past 12 months, has l ack of transportation kept you from medical appointments or from getting medications? No 04/2024 In the past 12 months, has l ack of transportation kept you from meetings, work, or from getting things needed for daily living? No 12/28/2023 Nutrition Answer Date Recorded On average, how many serving s of fruits and vegetables do you eat per day (serving size is equal to 1 cup or approximately the size of a tennis ball)? 0-2 12/28/2023 Dental Answer Date Recorded Dental: Regular Dentist No 11/14/19 21 Employment Answer Date Recorded Employment status Retired 12/28/2023 Housing Stability Answer Date Recorded What is your living situation today? I have a [facility] place to live 12/28/2023 Education Answer Date Recorded What is the highest level of school you have completed or the highest degree you have received? Associate degree: occupational, technical, or vocational program 12/10/2021 Sex and Gender Information Value Date Recorded Sex Assigned at Male 04/30/2018 10:15 AM CDT Legal Sex Male 1:57 AM [employer] SAL[employer] Gender Identity Male 04/30/2018 10:15 AM CDT Sexual Orientation Straight 04/30/2018 10 :15 AM CDT documented as of this encounter Plan of Treatment Upcoming Encounters Date Type Department Care Team (Latest Contact Info) Description 01/31/2025 4:00 PM CDT Appointment Department of Radiology, [facility], in [address] [phone] Mathew Louis M.D. [address] [place] [phone] 02/01/2025 11:30 AM CDT Lab Department of Oncology in [address] [phone] Dafne Guerrero APRN, C.N.P., M.S. [address] [place] [phone] 02/01/2025 1:30 PM CDT Office Visit Department of Oncology in [address] [phone] Jaskaran Harris M.D., Ph.D. [address] [place] [phone] 02/01/2025 2:15 PM CDT Infusion Department of Oncology in [address] [phone] Dafne Guerrero APRN, C.N.P., M.S. [address] [place] [phone] 02/16/2025 10:15 AM CDT Clinical Communication Virtual Review in [address] [phone] 02/21/2025 9:00 AM CDT Lab Department of Oncology in [address] [phone] Dafne Guerrero APRN, C.N.P., M.S. [address] [place] [address] [place] [phone] 02/21/2025 10:40 AM CDT Office Visit Department of Oncology in [place], [place] [address] [place] [phone] Dafne Guerrero APRN, Main.N.P., M.S. [address] [place] [phone] 02/21/2025 1:00 PM CDT Infusion Department of Oncology in [place], [place] [address] [place] [phone] Dafne Guerrero APRN, C.N.P., M.S. [address] [place] [phone] 03/20/2025 12:15 PM CDT Clinical Communication Virtual Review in [place], [place] 200 [place] [phone] 03/21/2025 6:30 AM CDT Lab Department of Laboratory Medicine and Pathology, [facility], in [place], [place] [address] [place] [phone] Dafne Guerrero APRN, Main.N.P., M.S. [address] [place] [phone] 03/21/2025 8:20 AM CDT Office Visit Department of Oncology in [place], [place] [address] [place] [phone] Mathew Louis M.D. [address] [place] [phone] 03/21/2025 9:00 AM CDT Infusion Department of Oncology in [place], [place] [address] [place] [phone] Dafne Guerrero APRN, C.N.P., M.S. [address] [place] [phone] documented as of this encounter Procedures Procedure Name Priority Date/Time Associated Diagnosis Comments CBC WITH DIFFERENTIAL, B Routine 01/11/2025 7:05 AM CDT Malignant Neoplasm Of Appendix (HCC) Medication Therapy Fci Not Anticoagulant Medication Therapy Fci Not Anticoagulant CARCINOEMBRYONIC AG (CEA), S Routine 01/11/2025 7:05 AM CDT Malignant Neoplasm Of Appendix (HCC) Medication Therapy Countersinker Not Anticoagulant Medication Therapy Countersinker Not Anticoagulant BILIRUBIN DIRECT, S/P Routine 01/11/2025 7:05 AM CDT Malignant Neoplasm Of Appendix (HCC) Medication Therapy Fci Not Anticoagulant Medication Therapy Countersinker Not Anticoagulant COMPREHENSIVE METABOLIC PANEL, S/P Routine 01/11/2025 7:05 AM CDT Malignant Neoplasm Of Appendix (HCC) Medication Therapy Fci Not Anticoagulant Medication Therapy Fci Not Anticoagulant documented in this encounter Results * Bilirubin, Direct (01/11/2025 7:05 AM CDT) Bilirubin, Direct, S <0.2 0.0 - 0.3 mg/dL 01/11/2025 7:54 AM CDT DTL Blood (Blood, Venous) 01/11/2025 7:05 AM CDT 01/11/2025 7:32 AM CDT Niles Juares APRNN.Candelario., M.S. LAB BLOOD AD D-ON Final Result [facility] [address] [place] [address], [facility] [address] [place] [address] * (ABNORMAL) Comprehensive Metabolic Panel (01/11/2025 7:05 AM CDT) Pathologist [facility] Potassium, S 4.3 3.6 - 5.2 mmol/L 01/11/2025 7:54 AM CDT DTL Sodium, S 138 135 - 145 mmol/L 01/11/2025 7:54 AM CDT DTL Chloride, S 96(L) 98 - 107 mmol/L 01/11/2025 7:54 AM CDT DTL Bicarbonate, S 32(H) 22 - 29 mmol/L 01/11/2025 7:54 AM CDT DTL Anion Gap 10 7 - 15 01/11/2025 7:54 AM CDT DTL BUN (Blood Urea Nitrogen), S 22 8 - 24 mg/dL 01/11/2025 7:54 AM CDT DTL Creatinine 0.95 0.74 - 1.35 mg/dL 01/11/2025 7:54 AM CDT DTL Estimated GFR (eGFR) 88 >=60 mL/min/BS A 01/11/2025 7:54 AM CDT DTL Comment: Estimated GFR calculated using the 2020 CKD_EPI creatinine equation. Calcium, Total, S 9.0 8.8 - 10.2 mg/dL 01/11/2025 7:54 AM CDT DTL Glucose, S 128 70 - 140 mg/dL 01/11/2025 7:54 AM CDT DTL Protein, Total, S 6.3 6.3 - 7.9 g/dL 01/11/2025 7:54 AM CDT DTL Albumin, S 4.3 3.5 - 5.0 g/dL 01/11/2025 7:54 AM CDT DTL Aspartate Aminotransferase (AST), S 16 8 - 48 U/L 01/11/2025 7:54 AM CDT DTL Alkaline Phosphatase, S 73 40 - 129 U/L 01/11/2025 7:54 AM CDT DTL Alanine Aminotransferase (ALT), S 22 7 - 55 U/L 01/11/2025 7:54 AM CDT DTL Bilirubin, Total, S 0.4 0.0 - 1.2 mg/dL 01/11/2025 7:54 AM CDT DTL Blood (Blood, Venous) 01/11/2025 7:05 AM CDT 01/11/2025 7:32 AM CDT Dafne Champion Cesar GUERRERO C.N.P., M.S. LAB BLOOD AD D-ON Final Result [facility] [address] [place] [address], [facility] DTL [facility] [address] [place] [address] * (ABNORMAL) CBC with Differential, Blood (01/11/2025 7:05 AM CDT) Hemoglobin 12.8(L) 13.2 - 16.6 g/dL 01/11/2025 7:35 AM CDT DTL Hematocrit 39.9 38.3 - 48.6 % 01/11/2025 7:35 AM CDT DTL Erythrocytes 3.97(L) 4.35 - 5.65 x10(12)/L 01/11/2025 7:35 AM CDT DTL MCV 100.5(H) 78.2 - 97.9 fL 01/11/2025 7:35 AM CDT DTL RBC Distrib Width 13.7 11.8 - 14.5 % 01/11/2025 7:35 AM CDT DTL Platelet Count 208 135 - 317 x10(9)/L 01/11/2025 7:35 AM CDT DTL Leukocytes 10.1(H) 3.4 - 9.6 x10(9)/L 01/11/2025 7:35 AM CDT DTL Neutrophils 8.23(H) 1.56 - 6.45 x10(9)/L 01/11/2025 7:35 AM CDT [facility] Lymphocytes 0.88(L) 0.95 - 3.07 x10(9)/L 01/11/2025 7:35 AM CDT DTL Monocytes 0.83(H) 0.26 - 0.81 x10(9)/L 01/11/2025 7:35 AM CDT DTL Eosinophils 0.10 0.03 - 0.48 x10(9)/L 01/11/2025 7:35 AM CDT DTL Basophils 0.05 0.01 - 0.08 x10(9)/L 01/11/2025 7:35 AM CDT DTL Blood (Blood, Venous) 01/11/2025 7:05 AM CDT 01/11/2025 7:22 AM CDT Dafne Guerrero APRN, C.N.P., M.S. LAB BLOOD AD D-ON Final Result Performing Organization Address City/[facility]/ZIP Co de Phone Number [facility] [address] [place] [address], [place] DTL [facility] 200 [place] [address] [facility] [address] [place] [address] * (ABNORMAL) CEA (Carcinoembryonic Antigen) (01/11/2025 7:05 AM CDT) Carcinoembryonic Ag (CEA), S 8.0(H) ng/mL 01/11/2025 11:56 AM CDT [facility] Comment: ----REFERENCE VALUE---- <=3.0 (Non-smokers) Some smokers may have elevated CEA, usually <5.0. ----ADDITIONAL INFORMATION---- The testing method is an immunoenzymatic assay manufactured by [employer] and performed on the [employer] DxI 800. Values obtained with different assay methods or kits may be different and cannot be used interchangeably. Test results cannot be interpreted as absolute evidence for the presence or absence of malignant disease. Blood (Blood, Venous) 01/11/2025 7:05 AM CDT 01/11/2025 11:06 AM CDT Dafne Guerrero APRN, C.N.P., M.S. LAB BLOOD AD D-ON Final Result [facility] [address] [place] [address] [facility] [address] [place] [address] documented in this encounter Visit Diagnoses Diagnosis Malignant Neoplasm Of Appendix (HCC)- Primary Medication Therapy Countersinker Not Anticoagulant documented in this encounter Administered Medications Inactive Administered Medications - up to 3 most recent administrations Medication Order MAR Action Action Date Dose Rate Site heparin flush 500 Units 500 Units, intra-catheter, As needed, line care, Starting on Thu01/11/25 at 0649, When no infusion to maintain patency: For IVAD accessed, not in use, and/or prior to hospital discharge, flush every 7 days after 0.9% preservative-free NaCL flush. For IVAD NOT accessed or used, flush every 4 weeks after 0.9% preservative-free NaCL flush.Indications:Malignant Neoplasm Of Appendix (HCC) Given 01/11/2025 7:09 AM CDT 500 Units sodium chloride 0.9 % injection 20 mL 20 mL, intra-catheter, As needed, line care, Starting on Thu01/11/25 at 0649, When IVAD Accessed and in Use: Flush post blood transfusion or post blood sampling.Indications:Malignant Neoplasm Of Appendix (HCC) Given 01/11/2025 7:09 AM CDT 20 mL documented in this encounter Additional Health Concerns Infection Onset Date Last Indicated Resolved Time Protective Environment 04/16/2023 04/16/2023 documented as of this encounter Care Teams Sandal Parts Assembler Relationship Specialty Start Date End Date Elsewhere, Pcp PCP - General Internal Medicine 10/26/23 documented as of this encounter
--- OUTSIDE RECORDS SUMMARY | 2025-01-27 14:34 | XMS_ITS | Encounter Summary ---
Author Organization [facility] Address [address] [place] [phone] Care Team Providers Care Credit Review Analyst Name Role Phone Elsewhere, Pcp Primary Care Provider Unavailabl e Reason for Referral * Outpatient (Routine) - Authorized Specialty Diagnoses / Procedures Referred By Contac t Referred To Contact Pulmonary Medicine Isaiah Khan M.D. [address] [place] [phone] Phone: tel: fax: Cristina Grigsby M.D. [address] [place] [phone] Phone: tel: fax: Referral ID Status Reason Start Date Expiration Date V isits Requested Visits Authorized [id number] Authorized 01/11/2025 07/13/2026 1 1 * Outpatient (Routine) Specialty Diagnoses / Procedures Referred By Contac t Referred To Contact Oncology Diagnoses Malignant Neoplasm Of Appendix (HCC) Medication Therapy Correction Not Anticoagulant RST [facility] [address] [place] [phone] Phone: tel: [facility] Referral ID Status Reason Start Date Expiration Date Visits Re quested Visits Authorized * Outpatient (Routine) Specialty Diagnoses / Procedures Referred By Contac t Referred To Contact Oncology Diagnoses Malignant Neoplasm Of Appendix (HCC) Medication Therapy Property Management Intern Not Anticoagulant RST [facility] [address] [place] [phone] Phone: tel: [facility] Referral ID Status Reason Start Date Expiration Date Visits Re quested Visits Authorized * Outpatient (Routine) Specialty Diagnoses / Procedures Referred By Contac t Referred To Contact Oncology Diagnoses Malignant Neoplasm Of Appendix (HCC) Medication Therapy Property Management Intern Not Anticoagulant RST [facility] [address] [place] [phone] Phone: tel: [facility] Referral ID Status Reason Start Date Expiration Date Visits Re quested Visits Authorized * Outpatient (Routine) Specialty Diagnoses / Procedures Referred By Contac t Referred To Contact Oncology Diagnoses Malignant Neoplasm Of Appendix (HCC) Medication Therapy Correction Not Anticoagulant [facility] [address] [place] [phone] Phone: tel: [facility] Referral ID Status Reason Start Date Expiration Date Visits Re quested Visits Authorized * Outpatient (Routine) Specialty Diagnoses / Procedures Referred By Contac t Referred To Contact Oncology Diagnoses Malignant Neoplasm Of Appendix (HCC) Medication Therapy Correction Not Anticoagulant RST [facility] [address] [place] [phone] Phone: tel: [facility] Referral ID Status Reason Start Date Expiration Date Visits Re quested Visits Authorized Reason for Visit * Episode Based Medications (Routine) - Authorized Specialty Diagnoses / Procedures Referred By Contac t Referred To Contact Diagnoses Malignant Neoplasm Of Appendix (HCC) Medication Therapy Correction Not Anticoagulant Medication Therapy Property Management Intern Not Anticoagulant Procedures IL ONDANSETRON HCL INJECTION IL LEUCOVORIN CALCIUM INJECTION IL IRINOTECAN INJECTION IL FLUOROURACIL INJECTION Ellis Osorio M.D. Department of Oncology in [place], [place] [address] [place] [phone] Phone: tel: Referral ID Status Reason Start Date Expiration Date V isits Requested Visits Authorized [id number] Authorized 04/07/2023 09/20/2026 24 24 Encounter Details Date Type Department Care Team (Latest Contact Info) Description 01/11/2025 9:10 AM CDT Office Visit Department of Oncology in [place], [place] [address] [place] [phone] Dafne Guerrero, YOLANDA, C.N.P., M.S. [address] [place] [phone] Kimberly Alvarez Pharm.D., R.Ph., [facility] [address] [place] [phone] Medication Therapy Property Management Intern Not Anticoagulant (Primary Dx); Malignant Neoplasm Of Appendix (HCC); Medication Therapy Correction Not Anticoagulant Social History Tobacco Use Types Packs/Day Years Used Date Smoking Tobacco: Never Passive Smoke Exposure: Past Smokeless Tobacco: Never Passive Exposure Comments:Y ears & Years ago Alcohol Use Standard Drinks/Week Comments Yes 20 (1 standard drink = 0.6 oz pu re alcohol) Daily [facility] Utilities Answer Date Recorded In the past 12 months has [facility] [employer], or water [employer] threatened to shut off services in your [...] re latives? Once a week 08/23/2022 Attends [employer] Not on file 08/23 Do you belong to any clubs o r organizations such as anglican groups, unions, fraternal or athletic groups, or [...] Answer Date Recorded PHQ-2 Score 0 08/03/2019 [facility] - Occupational Stress Questionnaire Answer Date Recorded [...] Date Recorded Dental: Regular Dentist No 11/14/19 Employment Answer Date Recorded Employment status Retired 12/28/2023 Housing Stability Answer Date Recorded What is your living situation today? I have a [facility] place to live 12/28/2023 Education Answer Date Recorded What is the highest level of school you have completed or the highest degree you have received? 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 Gender Identity Male 04/30/2018 10:15 AM CDT Sexual Orientation Straight 04/30/2018 10 :15 AM CDT documented as of this encounter Last Filed Vital Signs Vital Sign Reading Time Taken Comments Blood Pressure 157/80 01/11/2025 9:02 AM CDT Pulse 83 01/11/2025 9:02 AM CDT Temperature 36.2 C (97.2 F) 01/11/2025 9:02 AM CDT Respiratory Rate 16 01/11/2025 9:02 AM CDT Oxygen Saturation 99% 01/11/2025 9:02 AM CDT Inhaled Oxygen Concentration - - Weight 113 kg (250 lb 3.6 oz) 01/11/2025 9:02 AM CDT Height 175 cm (5' 8.9) 01/11/2025 9:02 AM CDT Body Mass Index 37.06 01/11/2025 9:02 AM CDT documented in this encounter Progress Notes * Kimberly Alvarez, Christopher., R.Ph., OP - 01/11/2025 9:10 AM CDT Medication Management Services (MMS) SUBJECTIVE Carrillo Stearns is a 69 y.o. male, who is seen by the [facility] Pharmacist for a pre- chemotherapy toxicity check. He was referred by Ellis Osorio M.D. per departmental standard of care. Patient does NOT appear cognitively impaired at this visit. Patient was at the visit with patient's significant other . The purpose of the visit is: pre-C33 FOLFIRI. The following portions of the patient's history were reviewed and updated as appropriate: Allergies[1], Current Medications[2], Family History[3], Medical History[4], Social History[5] (including tobacco, alcohol and illicit drug use), Surgical History[6], and Problem List[7]. 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 Biopsy: Chronic inflammation. 2.)October 13, 2019: CT: A/P: Soft tissue masslike thickening in the distal appendix with calcifications and small low attenuation areas, which is adhered to the posterior wall of the ascending colon. Findings are nonspecific and may represent inflammation, mucocele, or possibly mucinous tumor. 11/15/[address] 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 The surgical resection margins are negative for tumor. Procedure: Appendectomy and right colectomy Tumor Site: Distal appendix Tumor Size: Greatest dimension: 4 x 1.8 x 1.6 cm Histologic Type: Goblet cell adenocarcinoma, high grade pattern (grade 3) Histologic Grade: High grade Tumor Extension: Acellular mucin and tumor invades visceral peritoneum (serosa). Margins: Proximal Margin: Uninvolved by invasive carcinoma Mesenteric Margin: Uninvolved by invasive carcinoma Other Margin(s): None Lymphovascular Invasion: Not identified Tumor Deposits: Not identified Perineural Invasion: Not identified Regional Lymph Nodes: pNX Pathologic Staging (AJCC, 8th edition): TNM Descriptors: Not applicable Primary tumor: pT4a Regional lymph nodes: pN0 Number of Lymph Nodes Involved: 0 Number of lymph nodes Examined: 48 Distant Metastasis: Not applicable 11/15/2019 Clin/Path Stage Cancer Staging Malignant Neoplasm Of Appendix (HCC) Staging form: Appendix - Carcinoma, AJCC 8th Edition - Clinical stage from 11/15/2019: cT4, cN0, cM0 Total positive nodes: 0 Total nodes examined: 48 Histopathologic type: Mucocarcinoid tumor Mucinous histology: Yes 12/05/2019 Genetic Testing and Tumor Genotyping pMMR by IHC LUL/CANDY- no alteration 03/2023: Invitae: Uncertain significance POLE c.154C> [id number]) 12/20/2019 - 03/12/2020 Chemotherapy CAPOX / XELOX ( Capecitabine / Oxaliplatin ) Colorectal Start Date: 12/20/2019 03/09/2023 Recurrence Distant 1.) 1.) March 09, 2023: CT: C/A/P: Nothing suspicious for metastatic disease to the chest. Improved previously increased areas of endobronchial plugging in the left upper lobe and right lower lobe. New peritoneal metastases, most prominent along the mid to lower abdomen, with trace indeterminate low density fluid extending into a small umbilical hernia, as detailed. No drainable fluid collection or significant volume of malignant ascites. Possible 2 tiny ill-defined hypodense lesions within the inferior right hepatic lobe, which are at least suspicious for metastatic disease. 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 04/16/2023 - Chemotherapy FOLFIRI ( Fluorouracil / Leucovorin / Irinotecan ) Start Date: 04/16/2023 10/14/2023: CT: C/A/P: table mild right hilar and subcarinal adenopathy. No definite new or enlarging pulmonary nodules in the setting of severe varicose bronchiectasis. Interval improvement in regions of endobronchial plugging and tree-in-bud opacities. Stable exam. No significant change in the hazy omental stranding/nodularity suspicious for metastatic disease compared to CT 08/10/2023. No other potential sites of metastatic disease identified in the abdomen or pelvis. 10/14/2023: Treatment every 3 weeks. 12/28/2023: CT: C/A/P: Shifting chronic endobronchial infection with overall slight increase since 10/14/2023. 8 mm catheter-related thrombus in the right internal jugular vein. Otherwise no change. Omental metastases are unchanged in appearance. No evidence of progression or new metastasis in the abdomen or pelvis. 11/09/24: CT: C/A/P: No significant change in the extensive bilateral cystic and varicoid bronchiectasis and bronchial wall thickening with some new areas of endobronchial mucous plugging in the leftlower lobe. Scattered bilateral micronodules are has not changed significantly and is likely infecti ous/inflammatory. No definite evidence of metastatic disease in the chest. Slowly progressive peritoneal carcinomatosis involving especially the anterior abdominal omentum, no associated complications. No evidence for hepatic metastatic disease Weight: 113 kg (01/11/2025 9:02 AM) Height: 175 cm (01/11/2025 9:02 AM) Interval History by Pharmacist Overall, patient continues to tolerate therapy well. His energy level ebbs and flows, but he does have more good days than bad days between cycles. His bilateral lower extremity edema is unchanged from baseline. He averages one fully formed bowel movement per day; there is no blood in his stool or bleeding elsewhere. His primary complaint is worsening chest tightness. Since his previous oncology visit, he had increased his home prednisone to 25 mg daily and continued another course of Amoxicillin, but this has not helped his symptoms. 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 He has a productive cough at baseline that has not worsened, he's had no fevers, no worsening shortness of breath, and no difficulty breathing. He is on home O2. His chest tightness occurs both on exertion and periodically at rest. Patient was evaluated by Dr. Khan, and he was deemed fit for treatment today. We will request a follow up with our pulmonary colleagues. Systems Review ROS negative except what was noted in the interval history. Labs reviewed and are adequate to proceed with treatment. Plan There are no findings that are unexpected at this point in treatment and the patient is managing symptoms adequately without significant acute toxicity. He will continue with FOLFIRI treatment as planned. Patient and caregiver(s) expressed understanding of, and agreement with plan of care and was provided a verbal summary of these recommendations. Total time spent was 30 minutes, with more than 50% of the time spent on counseling, coordination of care and patient education. [1] Allergies Allergen Reactions Bactrim [Sulfamethoxazole-Trimethoprim] Rash [2] Current Outpatient Medications Medication Sig Dispense Refill albuterol 90 mcg/actuation inhaler INHALE TWO PUFFS BY MOUTH EVERY SIX HOURS NEEDED FOR [id number] g 2 apixaban (Eliquis) 5 mg tablet Take 1 tablet (5 mg total) by mouth 2 (two) times a day. 180 tablet 2 fluticasone propion-salmeteroL 500-50 mcg/dose diskus inhaler INHALE 1 PUFF TWICE DAILY. RINSE MOUTH WITH WATER AFTER USE TO REDUCE AFTERTASTE AND INCIDENCE OF CANDIDIASIS. DO NOT SWALLOW. 60 each 2 furosemide (Lasix) 20 mg tablet Take 40 mg by mouth daily as needed. heparin 100 unit/mL syringe 5 mL (500 Units total) by intra-catheter route once as needed for line care for up to 1 dose. Flush IV line AFTER 0.9% Sodium Chloride flush 30 mL 3 heparin 100 unit/mL syringe 5 mL (500 Units total) by intra-catheter route once as needed for line care for up to 1 dose. Flush IV line AFTER 0.9% Sodium Chloride flush 5 mL 0 heparin 100 unit/mL syringe 5 mL (500 Units total) by intra-catheter route once as needed for line care for up to 1 dose. Flush IV line AFTER 0.9% Sodium Chloride flush 30 mL 3 loperamide (Imodium A-D) 2 mg capsule Take 1 capsule (2 mg total) by mouth 4 (four) times a day as needed for diarrhea. 75 capsule 11 ondansetron (Zofran) 8 mg tablet Take 1 tablet (8 mg total) by mouth every 8 (eight) hours as needed for nausea or vomiting. 30 tablet 11 predniSONE (Deltasone) 5 mg tablet TAKE FIVE TABLETS BY MOUTH DAILY 150 tablet 3 prochlorperazine (Compazine) 10 mg tablet Take 1 tablet (10 mg total) by mouth every 6 (six) hours as needed for nausea or vomiting. 30 tablet 1 No current facility-administered medications for this visit. Facility-Administered Medications Ordered in Other Visits Medication Dose Route Frequency Provider Last Rate Last Admin atropine injection 0.5 mg 0.5 mg subcutaneous Once Dafne Guerrero APRN, C.N.P., M.S. dexAMETHasone injection 8 mg (Decadron) 8 mg intravenous Once Dafne Guerrero APRN, C.N.P., M.S. fluorouraciL 4,800 mg in NaCl 0.9% 230 mL IVPB (AdruciL) 4,800 mg intravenous over 46 hr Dafne Guerrero APRN, C.N.P., M.S. irinotecan 440 mg in NaCl 0.9% 570 mL IVPB (Camptosar) 180 mg/m2 (Treatment Plan Measured) intravenous Once Dafne Guerrero APRN, C.N.P., M.S. leucovorin 100 mg in NaCl 0.9% 115 mL IVPB 100 mg intravenous Once BrashearDafne jones APRN, C.N.P.,M.S. palonosetron injection 0.25 mg (Aloxi) 0.25 mg intravenous Once Dafne Guerrero APRN, C.N.P., M.S. [3] Family History Problem Relation Name Age of Onset Cancer Mother unknown type Heart failure Father No Known Problems Sister No Known Problems Brother No Known Problems Brother No Known Problems Brother No Known Problems Brother No Known Problems Brother [4] Past Medical History: Diagnosis Date Appendix Disease Aspergillosis Bronchopulmonary Allergic (HCC) Asthma NOS Cataract Chronic Obstructive Pulmonary Disease (HCC) Hypertension NOS Malignant Neoplasm Of Colon Adenocarcinoma (HCC) 09/2019 Pneumonia Therapy Steroid Systemic Personal History [5] Social History Tobacco Use Smoking status: Never Passive exposure: Past (Years & Years ago) Smokeless tobacco: Never Vaping Use Vaping status: never used Substance Use Topics Alcohol use: Yes Alcohol/week: 20.0 standard drinks of alcohol Types: 20 Cans of beer per week Comment: Daily Drug use: Never [6] Past Surgical History: Procedure Laterality Date APPENDECTOMY LAPAROSCOPIC ABDOMINAL EXPLORATION N/A 03/25/2023 Procedure: DIAGNOSTIC LAPAROSCOPY WITH BIOPSY, TAKING PHOTOS.; Surgeon: Kwame Menon M.D.; Location: [facility] OR ROBOTIC-ASSISTED COLECTOMY RIGHT WITH ANASTOMOSIS Right 11/15/2019 Procedure: ROBOTIC-ASSISTED COLECTOMY RIGHT WITH ANASTOMOSIS.; Surgeon: Kwame Menon M.D.; Location: [facility] OR [7] Patient Active Problem List Diagnosis Asthma NOS Aspergillosis 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 Hypertension NOS Appendix Disease Obesity Body Mass Index 30-39.9 Adult Follow Up Examination Status Post Surgery Malignant Neoplasm Of Appendix (HCC) Other Specified Injury Extensor Muscle Fascia And Tendon Left Thumb Wrist And Hand Level Initial Medication Therapy Property Management Intern Not Anticoagulant Medication Therapy Property Management Intern Not Anticoagulant Edema Lower Extremity Peritoneal Carcinomatosis (HCC) Chronic Obstructive Pulmonary Disease With Acute Lower Respiratory Infection (HCC) Thrombosis Jugular Vein Internal Acute Right (HCC) Chronic Respiratory Failure With Hypoxia (HCC) documented in this encounter Plan of Treatment Upcoming Encounters Date Type Department Care Team (Latest Contact Info) Description 01/31/2025 4:00 PM CDT Appointment Department of Radiology, [facility], in [place], [place] [address] [place] [phone] Mathew Louis M.D. [address] [place] [phone] 02/01/2025 11:30 AM CDT Lab Department of Oncology in [place], [place] [address] [place] [phone] Dafne Guerrero APRN, C.N.P., M.S. [address] [place] [phone] 02/01/2025 1:30 PM CDT Office Visit Department of Oncology in [address] [phone] Jaskaran Harris M.D., Ph.D. [address] [place] [phone] 02/01/2025 2:15 PM CDT Infusion Department of Oncology in [address] [phone] Dafne Guerrero APRN, C.N.P., M.S. [address] [place] [phone] 02/16/2025 10:15 AM CDT Clinical Communication Virtual Review in [place], [place] 200 [place] [phone] 02/21/2025 9:00 AM CDT Lab Department of Oncology in [place], [place] [address] [place] [phone] Dafne Guerrero APRN, C.N.P., M.S. [address] [place] [phone] 02/21/2025 10:40 AM CDT Office Visit Department of Oncology in [place], [place] [address] [place] [phone] Dafne Guerrero APRN, Main.N.P., M.S. [address] [place] [phone] 02/21/2025 1:00 PM CDT Infusion Department of Oncology in [place], [place] [address] [place] [phone] Dafne Guerrero APRN, Main.N.P., M.S. [address] [place] [phone] 03/20/2025 12:15 PM CDT Clinical Communication Virtual Review in [place], [place] 200 [place] [phone] 03/21/2025 6:30 AM CDT Lab Department of Laboratory Medicine and Pathology, [facility], in [place], [place] [address] [place] [phone] Dafne Guerrero APRN, C.N.P., M.S. [address] [place] [phone] 03/21/2025 8:20 AM CDT Office Visit Department of Oncology in [place], [place] [address] [place] [phone] Mathew Louis M.D. 200 [place] [phone] 03/21/2025 9:00 AM CDT Infusion Department of Oncology in [place], [place] [address] [place] [phone] Dafne Guerrero, YOLANDA, C.N.P., M.S. 200 [place] [phone] Scheduled Orders Name Type Priority Associated Diagnoses Orde r Schedule CEA (Carcinoembryonic Antigen) Lab Routine Malignant Neoplasm Of Appendix (HCC) Medication Therapy Correction Not Anticoagulant Expected: 02/22/2025, Expires: 02/22/2026 CBC with Differential, Blood Lab Routine Malignant Neoplasm Of Appendix (HCC) Medication Therapy Correction Not Anticoagulant Expected: 02/22/2025, Expires: 02/22/2028 Comprehensive Metabolic Panel Lab Routine Malignant Neoplasm Of Appendix (HCC) Medication Therapy Property Management Intern Not Anticoagulant Expected: 02/22/2025, Expires: 02/22/2026 Bilirubin, Direct Lab Routine Malignant Neoplasm Of Appendix (HCC) Medication Therapy Property Management Intern Not Anticoagulant Expected: 02/22/2025, Expires: 02/22/2026 CEA (Carcinoembryonic Antigen) Lab Routine Malignant Neoplasm Of Appendix (HCC) Medication Therapy Property Management Intern Not Anticoagulant Expected: 03/15/2025, Expires: 03/15/2026 CBC with Differential, Blood Lab Routine Malignant Neoplasm Of Appendix (HCC) Medication Therapy Correction Not Anticoagulant Expected: 03/15/2025, Expires: 03/14/2028 Comprehensive Metabolic Panel Lab Routine Malignant Neoplasm Of Appendix (HCC) Medication Therapy Property Management Intern Not Anticoagulant Expected: 03/15/2025, Expires: 03/15/2026 Bilirubin, Direct Lab Routine Malignant Neoplasm Of Appendix (HCC) Medication Therapy Correction Not Anticoagulant Expected: 03/15/2025, Expires: 03/15/2026 CEA (Carcinoembryonic Antigen) Lab Routine Malignant Neoplasm Of Appendix (HCC) Medication Therapy Property Management Intern Not Anticoagulant Expected: 04/05/2025, Expires: 04/05/2026 CBC with Differential, Blood Lab Routine Malignant Neoplasm Of Appendix (HCC) Medication Therapy Property Management Intern Not Anticoagulant Expected: 04/05/2025, Expires: 04/04/2028 Comprehensive Metabolic Panel Lab Routine Malignant Neoplasm Of Appendix (HCC) Medication Therapy Property Management Intern Not Anticoagulant Expected: 04/05/2025, Expires: 04/05/2026 Bilirubin, Direct Lab Routine Malignant Neoplasm Of Appendix (HCC) Medication Therapy Property Management Intern Not Anticoagulant Expected: 04/05/2025, Expires: 04/05/2026 CEA (Carcinoembryonic Antigen) Lab Routine Malignant Neoplasm Of Appendix (HCC) Medication Therapy Correction Not Anticoagulant Expected: 04/26/2025, Expires: 04/26/2026 CBC with Differential, Blood Lab Routine Malignant Neoplasm Of Appendix (HCC) Medication Therapy Property Management Intern Not Anticoagulant Expected: 04/26/2025, Expires: 04/25/2028 Comprehensive Metabolic Panel Lab Routine Malignant Neoplasm Of Appendix (HCC) Medication Therapy Property Management Intern Not Anticoagulant Expected: 04/26/2025, Expires: 04/26/2026 Bilirubin, Direct Lab Routine Malignant Neoplasm Of Appendix (HCC) Medication Therapy Correction Not Anticoagulant Expected: 04/26/2025, Expires: 04/26/2026 CEA (Carcinoembryonic Antigen) Lab Routine Malignant Neoplasm Of Appendix (HCC) Medication Therapy Property Management Intern Not Anticoagulant Expected: 05/17/2025, Expires: 05/17/2026 CBC with Differential, Blood Lab Routine Malignant Neoplasm Of Appendix (HCC) Medication Therapy Property Management Intern Not Anticoagulant Expected: 05/17/2025, Expires: 05/16/2028 Comprehensive Metabolic Panel Lab Routine Malignant Neoplasm Of Appendix (HCC) Medication Therapy Property Management Intern Not Anticoagulant Expected: 05/17/2025, Expires: 05/17/2026 Bilirubin, Direct Lab Routine Malignant Neoplasm Of Appendix (HCC) Medication Therapy Correction Not Anticoagulant Expected: 05/17/2025, Expires: 05/17/2026 Scheduled Referrals Name Type Priority Associated Diagnoses Orde r Schedule Oncology office visit (clinic) Outpatient Referral Routine Malignant Neoplasm Of Appendix (HCC) Medication Therapy Property Management Intern Not Anticoagulant Expected: 02/22/2025, Expires: 02/22/2026 Oncology office visit (clinic) Outpatient Referral Routine Malignant Neoplasm Of Appendix (HCC) Medication Therapy Correction Not Anticoagulant Expected: 03/15/2025, Expires: 03/15/2026 Oncology office visit (clinic) Outpatient Referral Routine Malignant Neoplasm Of Appendix (HCC) Medication Therapy Correction Not Anticoagulant Expected: 04/05/2025, Expires: 04/05/2026 Oncology office visit (clinic) Outpatient Referral Routine Malignant Neoplasm Of Appendix (HCC) Medication Therapy Property Management Intern Not Anticoagulant Expected: 04/26/2025, Expires: 04/26/2026 Oncology office visit (clinic) Outpatient Referral Routine Malignant Neoplasm Of Appendix (HCC) Medication Therapy Property Management Intern Not Anticoagulant Expected: 05/17/2025, Expires: 05/17/2026 Return to provider in another specialty Outpatient Referral Routine Expected: 01/11/2025, Expires: 04/12/2026 documented as of this encounter Visit Diagnoses Diagnosis Medication Therapy Property Management Intern Not Anticoagulant- Primary Malignant Neoplasm Of Appendix (HCC) documented in this encounter Additional Health Concerns Infection Onset Date Last Indicated Resolved Time Protective Environment 04/16/2023 04/16/2023 documented as of this encounter Care Teams Credit Review Analyst Relationship Specialty Start Date End Date Elsewhere, Pcp PCP - General Internal Medicine 10/26/23 documented as of this encounter
--- OUTSIDE RECORDS SUMMARY | 2025-01-27 14:34 | XMS_ITS | Encounter Summary ---
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 Department of Oncology in [place], [place] [address] [place] [phone] Phone: tel: Referral ID Status Reason Start Date Expiration Date V isits Requested Visits Authorized [id number] Authorized 04/07/2023 09/20/2026 24 24 Encounter Details Date Type Department Care Team (Late st Contact Info) Description 12/20/2024 7:00 AM CDT Lab Department of Oncology in [place], [place] [address] [place] [phone] Dafne Guerrero, YOLANDA, C.N.P., M.S. [address] [place] [address] [phone] Malignant Neoplasm Of Appendix (HCC) (Primary Dx); Medication Therapy Mcfp Not Anticoagulant; Medication Therapy Watcher Automat Long Goods Not Anticoagulant Social History Tobacco Use Types Packs/Day Years Used Date Smoking Tobacco: Never Passive Smoke Exposure: Past Smokeless Tobacco: Never Passive Exposure Comments:Y ears & Years ago Alcohol Use Standard Drinks/Week Comments Yes 20 (1 standard drink = 0.6 oz pu re alcohol) Daily [facility] Utilities Answer Date Recorded In [...] re latives? Once a week 08/23/2022 Attends Taoist Services Not on file 08/23 Do you belong to any clubs o r organizations such as uatsdin groups, unions, fraternal or athletic groups, or [...] Answer Date Recorded PHQ-2 Score 0 08/03/2019 [facility] [place] of Occupat ional [facility] - Occupational Stress Questionnaire Answer Date [...] your living situation today? I have a [facility] place to live 12/28/2023 Education Answer Date Recorded What is the highest level of school you have completed or the highest degree you have received? 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 [address] [place] [phone] 02/01/2025 11:30 AM CDT Lab Department of Oncology in [address] [phone] Dafne Guerrero APRN, C.N.P., M.S. [address] [place] [phone] 02/01/2025 1:30 PM CDT Office Visit Department of Oncology in [address] [phone] Jaskaran Harris M.D., Ph.D. [address] [place] [phone] 02/01/2025 2:15 PM CDT Infusion Department of Oncology in [address] [phone] Dafne Guerrero APRN, C.N.P., M.S. [address] [place] [phone] 02/16/2025 10:15 AM CDT Clinical Communication Virtual Review in [address] [phone] 02/21/2025 9:00 AM CDT Lab Department of Oncology in [address] [phone] Dafne Guerrero APRN, C.N.P., M.S. [address] [place] [address] [place] [phone] 02/21/2025 10:40 AM CDT Office Visit Department of Oncology in [place], [place] [address] [place] [phone] Dafne Guerrero APRN, Main.N.P., M.S. [address] [place] [phone] 02/21/2025 1:00 PM CDT Infusion Department of Oncology in [place], [place] [address] [place] [phone] Dafne Guerrero APRN, C.N.P., M.S. [address] [place] [phone] 03/20/2025 12:15 PM CDT Clinical Communication Virtual Review in [place], [place] 200 [place] [phone] 03/21/2025 6:30 AM CDT Lab Department of Laboratory Medicine and Pathology, [facility], in [place], [place] [address] [place] [phone] Dafne Guerrero APRN, Main.N.P., M.S. [address] [place] [phone] 03/21/2025 8:20 AM CDT Office Visit Department of Oncology in [place], [place] [address] [place] [phone] Mathew Louis M.D. [address] [place] [phone] 03/21/2025 9:00 AM CDT Infusion Department of Oncology in [place], [place] [address] [place] [phone] Dafne Guerrero APRN, C.N.P., M.S. 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 Medication Therapy Watcher Automat Long Goods Not Anticoagulant BILIRUBIN DIRECT, S/P Routine 12/20/2024 7:08 AM CDT 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 LAB BLOOD AD D-ON Final Result [facility] [address] [place] [address], [facility] [address] [place] [address] * (ABNORMAL) Comprehensive Metabolic Panel (12/20/2024 7:08 AM CDT) Pathologist [facility] Potassium, S 4.4 3.6 - 5.2 mmol/L 12/20/2024 8:07 AM CDT DTL Sodium, S 138 135 - 145 mmol/L 12/20/2024 8:07 AM CDT DTL Chloride, S 97(L) 98 - 107 mmol/L 12/20/2024 8:07 AM CDT DTL Bicarbonate, S 33(H) 22 - 29 mmol/L 12/20/2024 8:07 AM CDT DTL Anion Gap 8 7 - 15 12/20/2024 8:07 AM CDT DTL BUN (Blood Urea Nitrogen), S 20 8 - 24 mg/dL 12/20/2024 8:07 AM CDT DTL Creatinine 0.90 0.74 - 1.35 mg/dL 12/20/2024 8:07 AM CDT DTL Estimated GFR (eGFR) >90 >=60 mL/min/BS A 12/20/2024 8:07 AM CDT DTL Comment: Estimated GFR calculated using the 2020 CKD_EPI creatinine equation. Calcium, Total, S 8.8 8.8 - 10.2 mg/dL 12/20/2024 8:07 AM CDT DTL Glucose, S 107 70 - 140 mg/dL 12/20/2024 8:07 AM CDT DTL Protein, Total, S 6.2(L) 6.3 - 7.9 g/dL 12/20/2024 8:07 AM CDT DTL Albumin, S 4.0 3.5 - 5.0 g/dL 12/20/2024 8:07 AM CDT DTL Aspartate Aminotransferase (AST), S 15 8 - 48 U/L 12/20/2024 8:07 AM CDT DTL Alkaline Phosphatase, S 79 40 - 129 U/L 12/20/2024 8:07 AM CDT DTL Alanine Aminotransferase (ALT), S 21 7 - 55 U/L 12/20/2024 8:07 AM CDT DTL Bilirubin, Total, S 0.2 0.0 - 1.2 mg/dL 12/20/2024 8:07 AM CDT DTL Blood (Blood, Venous) 12/20/2024 7:08 AM CDT 12/20/2024 7:49 AM CDT us Niles Juares APRNNLastPLast, M.S. LAB BLOOD AD D-ON Final Result [facility] [address] [place] [address], [facility] DTL [facility] [address] [place] [address] * (ABNORMAL) CBC with Differential, Blood (12/20/2024 7:08 AM CDT) Hemoglobin 12.1(L) 13.2 - 16.6 g/dL 12/20/2024 7:42 AM CDT DTL Hematocrit 38.9 38.3 - 48.6 % 12/20/2024 7:42 AM CDT DTL Erythrocytes 3.84(L) 4.35 - 5.65 x10(12)/L 12/20/2024 7:42 AM CDT DTL MCV 101.3(H) 78.2 - 97.9 fL 12/20/2024 7:42 AM CDT DTL RBC Distrib Width 14.1 11.8 - 14.5 % 12/20/2024 7:42 AM CDT DTL Platelet Count 253 135 - 317 x10(9)/L 12/20/2024 7:42 AM CDT DTL Leukocytes 8.6 3.4 - 9.6 x10(9)/L 12/20/2024 7:42 AM CDT DTL Neutrophils 7.26(H) 1.56 - 6.45 x10(9)/L 12/20/2024 7:42 AM CDT DHPM Lymphocytes 0.69(L) 0.95 - 3.07 x10(9)/L 12/20/2024 7:42 AM CDT DTL Monocytes 0.50 0.26 - 0.81 x10(9)/L 12/20/2024 7:42 AM CDT DTL Eosinophils 0.07 0.03 - 0.48 x10(9)/L 12/20/2024 7:42 AM CDT DTL Basophils 0.07 0.01 - 0.08 x10(9)/L 12/20/2024 7:42 AM CDT DTL Blood (Blood, Venous) 12/20/2024 7:08 AM CDT 12/20/2024 7:30 AM CDT Dafne Guerrero APRN, C.N.P., M.S. LAB BLOOD AD D-ON Final Result Performing Organization Address City/[facility]/ZIP Co de Phone Number [facility] [address] [place] [address], [place] DTL [facility] 200 [place] [address] [facility] 200 [place] [address] * (ABNORMAL) CEA (Carcinoembryonic Antigen) (12/20/2024 7:08 AM CDT) Pathologist [facility] Carcinoembryonic Ag (CEA), S 5.1(H) ng/mL 12/20/2024 10:39 AM CDT [facility] Comment: ----REFERENCE VALUE---- <=3.0 (Non-smokers) Some smokers may have elevated CEA, usually <5.0. ----ADDITIONAL INFORMATION---- The testing method is an immunoenzymatic assay manufactured by [employer] and performed on the Resilience DxI 800. Values obtained with different assay methods or kits may be different and cannot be used interchangeably. Test results cannot be interpreted as absolute evidence for the presence or absence of malignant disease. Blood (Blood, Venous) 12/20/2024 7:08 AM CDT 12/20/2024 9:52 AM CDT Dafne Guerrero APRN, C.N.P., M.S. LAB BLOOD AD D-ON Final Result [facility] [address] [place] [address] [facility] [address] [place] [address] documented in this encounter Visit Diagnoses Diagnosis Malignant Neoplasm Of Appendix (HCC)- Primary Medication Therapy Watcher Automat Long Goods Not Anticoagulant documented in this encounter Administered Medications Inactive Administered Medications - up to 3 most recent administrations Medication Order MAR Action Action Date Dose Rate Site heparin flush 500 Units 500 Units, intra-catheter, As needed, line care, Starting on Thu12/20/24 at 0655, When no infusion to maintain patency: For IVAD accessed, not in use, and/or prior to hospital discharge, flush every 7 days after 0.9% preservative-free NaCL flush. For IVAD NOT accessed or used, flush every 4 weeks after 0.9% preservative-free NaCL flush.Indications:Malignant Neoplasm Of Appendix (HCC) Given 12/20/2024 7:12 AM CDT 500 Units sodium chloride 0.9 % injection 20 mL 20 mL, intra-catheter, As needed, line care, Starting on Thu12/20/24 at 0655, When IVAD Accessed and in Use: Flush post blood transfusion or post blood sampling.Indications:Malignant Neoplasm Of Appendix (HCC) Given 12/20/2024 7:12 AM CDT 20 mL documented in this encounter Additional Health Concerns Infection Onset Date Last Indicated Resolved Time Protective Environment 04/16/2023 04/16/2023 documented as of this encounter Care Teams Pillowcase Cleaner Relationship Specialty Start Date End Date Elsewhere, Pcp PCP - General Internal Medicine 10/26/23 documented as of this encounter
--- OUTSIDE RECORDS SUMMARY | 2025-01-27 14:34 | XMS_ITS | Encounter Summary ---
Author Organization [facility] Address [address] [place] [address] Care Team Providers Care Fingerprint Clerk Name Role Phone Elsewhere, Pcp Primary Care Provider Unavailabl e Reason for Visit * Reason Onset Date Comments Blood Pressure 01/27/2025 * Appointment Request (Routine) - Authorized Specialty Diagnoses / Procedures Referred By Zeyad ramirez Referred To Contact Oncology Referral ID Status Reason Start Date Expiration Date V isits Requested Visits Authorized [id number] Authorized 11/09/2024 02/09/2026 1 1 Encounter Details Date Type Department Care Team (Latest Contact Info) Description 01/27/2025 12:00 PM CDT Clinical Communication Virtual Review in [address] [phone] Blood Pressure Social History Tobacco Use Types Packs/Day Years Used Date Smoking Tobacco: Never Passive Smoke Exposure: Past Smokeless Tobacco: Never Tobacco Cessation:Counseling Given: Not Answered Passive Exposure Comments:Years & Years ago Alcohol Use Standard Drinks/Week Comments Yes 20 (1 standard drink = 0.6 oz pu re alcohol) Daily [facility] Utilities Answer Date Recorded In the past 12 months has e medineering, gas, oil, or water [employer] [place] threatened to shut off services in your home? No 12/28/2023 Humiliation, Afraid, Rape, and Kick questionnair e Answer Date Recorded Within the last year, have y ou been afraid of your partner or ex-partner? No 08/23/2022 Within the last year, have y ou been humiliated or emotionally abused in other ways by your partner or ex-partner? No 12 /11/2021 Within the last year, have y ou [...] any clubs o r organizations such as pentecostal groups, unions, fraternal or athletic groups, or [...] Answer Date Recorded PHQ-2 Score 0 08/03/2019 [facility] [place] of Occupat ional Health - Occupational Stress [...] your living situation today? I have a [facility] place to live 12/28/2023 Education Answer Date Recorded What is the highest level of school you have completed or the highest degree you have received? 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 [address] [place] [address] 02/01/2025 11:30 AM CDT Lab Department of Oncology in [place], [place] [address] [place] [phone] Dafne Guerrero APRN, C.N.P., M.S. [address] [place] [phone] 02/01/2025 1:30 PM CDT Office Visit Department of Oncology in [place], [place] [address] [place] [phone] Jaskaran Harris M.D., Ph.D. [address] [place] [phone] 02/01/2025 2:15 PM CDT Infusion Department of Oncology in [place], [place] [address] [place] [phone] Dafne Guerrero APRN, C.N.Candelario., M.S. [address] [place] [phone] 02/16/2025 10:15 AM CDT Clinical Communication Virtual Review in [place], [place] 200 [place] [address] 02/21/2025 9:00 AM CDT Lab Department of Oncology in [address] [phone] Dafne Guerrero APRN, C.N.P., M.S. [address] [place] [phone] 02/21/2025 10:40 AM CDT Office Visit Department of Oncology in [place], [place] [address] [place] [phone] Dafne Guerrero APRN, C.N.P., M.S. [address] [place] [phone] 02/21/2025 1:00 PM CDT Infusion Department of Oncology in [place], [place] [address] [place] [phone] Dafne Guerrero APRN, C.N.P., M.S. [address] [place] [phone] 03/20/2025 12:15 PM CDT Clinical Communication Virtual Review in [place], [place] [address] [place] [address] 03/21/2025 6:30 AM CDT Lab Department of Laboratory Medicine and Pathology, [facility], in [place], [place] [address] [place] [phone] Dafne Guerrero APRN, C.N.P., M.S. [address] [place] [phone] 03/21/2025 8:20 AM CDT Office Visit Department of Oncology in [place], [place] [address] [place] [phone] Mathew Louis M.D. [address] [place] [phone] 03/21/2025 9:00 AM CDT Infusion Department of Oncology in [address] [phone] Dafne Guerrero APRN, C.N.P., M.S. [address] [place] [phone] documented as of this encounter Visit Diagnoses Not on filedocumented in this encounter Additional Health Concerns Infection Onset Date Last Indicated Resolved Time Protective Environment 04/16/2023 04/16/2023 documented as of this encounter Care Teams Fingerprint Clerk Relationship Specialty Start Date End Date Elsewhere, Pcp PCP - General Internal Medicine 10/26/23 documented as of this encounter
--- OUTSIDE RECORDS SUMMARY | 2025-01-27 14:34 | XMS_ITS | Encounter Summary ---
Author Organization [facility] Address [address] [place] [address] Care Team Providers Care General Scrap Worker Name Role Phone Elsewhere, Pcp Primary Care Provider Unavailabl e Reason for Visit * Reason Onset Date Comments Appt Request 01/26/2025 Encounter Details Date Type Department Care Team (Late st Contact Info) Description 01/26/2025 Clinical Communication Division of Pulmonary Medicine in [place], [place] [address] [place] [address] Cristina Grigsby M.D. [address] [place] [phone] Appt Request Social History Tobacco Use Types Packs/Day Years Used Date Smoking Tobacco: Never Passive Smoke Exposure: Past Smokeless Tobacco: Never Passive Exposure Comments:Y ears & Years ago Alcohol Use Standard Drinks/Week Comments Yes 20 (1 standard drink = 0.6 oz pu re alcohol) Daily [facility] Utilities Answer Date Recorded In the past 12 months has [facility] [employer] gas, oil, or water [employer] threatened to shut off services in your [...] re latives? Once a week 08/23/2022 Attends Hinduism Services Not on file 08/23 Do you belong to any clubs o r organizations such as temple groups, unions, fraternal or athletic groups, or [...] Answer Date Recorded PHQ-2 Score 0 08/03/2019 [facility] [place] of Occupat ional Health - Occupational Stress [...] your living situation today? I have a [facility] place to live 12/28/2023 Education Answer Date Recorded What is the highest level of school you have completed or the highest degree you have received? 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 200 [place] [phone] 02/01/2025 11:30 AM CDT Lab Department of Oncology in [place], [place] [address] [place] [phone] Dafne Guerrero APRN, C.N.P., M.S. [address] [place] [phone] 02/01/2025 1:30 PM CDT Office Visit Department of Oncology in [place], [place] [address] [place] [phone] Jaskaran Harris M.D., Ph.D. [address] [place] [phone] 02/01/2025 2:15 PM CDT Infusion Department of Oncology in [place], [place] [address] [place] [phone] Dafne Guerrero APRN, C.N.Candelario., M.S. [address] [place] [phone] 02/16/2025 10:15 AM CDT Clinical Communication Virtual Review in [place], [place] 200 [place] [phone] 02/21/2025 9:00 AM CDT Lab Department of Oncology in [place], [place] [address] [place] [phone] Dafne Guerrero APRN, Main.N.P., M.S. [address] [place] [phone] 02/21/2025 10:40 AM CDT Office Visit Department of Oncology in [place], [place] [address] [place] [phone] Dafne Guerrero APRN, Main.N.P., M.S. [address] [place] [phone] 02/21/2025 1:00 PM CDT Infusion Department of Oncology in [place], [place] [address] [place] [phone] Dafne Guerrero APRN, C.N.P., M.S. [address] [place] [phone] 03/20/2025 12:15 PM CDT Clinical Communication Virtual Review in [place], [place] 200 [place] [address] 03/21/2025 6:30 AM CDT Lab Department of Laboratory Medicine and Pathology, [facility] in [place], [place] [address] [place] [phone] Dafne Guerrero APRN, C.N.P., M.S. [address] [place] [phone] 03/21/2025 8:20 AM CDT Office Visit Department of Oncology in [place], [place] [address] [place] [phone] Mathew Louis M.D. [address] [place] [phone] 03/21/2025 9:00 AM CDT Infusion Department of Oncology in [place], [place] [address] [place] [phone] Dafne uGerrero APRN, C.N.P., M.S. [address] [place] [phone] documented as of this encounter Visit Diagnoses Not on filedocumented in this encounter Additional Health Concerns Infection Onset Date Last Indicated Resolved Time Protective Environment 04/16/2023 04/16/2023 documented as of this encounter Care Teams General Scrap Worker Relationship Specialty Start Date End Date Elsewhere, Pcp PCP - General Internal Medicine 10/26/23 documented as of this encounter
--- OUTSIDE RECORDS SUMMARY | 2025-01-27 14:34 | XMS_ITS | Encounter Summary ---
Author Organization [facility] Address [address] [place] [phone] Care Team Providers Care Electrostatic Powder Coating Technician Name Role Phone Elsewhere, Pcp Primary Care Provider Unavailabl e Reason for Referral * Outpatient (Routine) - Authorized Specialty Diagnoses / Procedures Referred By Contmark t Referred To Contact Allergy and Immunology Mathew Louis M.D. [address] [place] [phone] Phone: tel: fax: Syed Us M.D. [address] [place] [phone] Phone: tel: fax: Referral ID Status Reason Start Date Expiration Date V isits Requested Visits Authorized [id number] Authorized 01/27/2025 07/29/2026 1 1 Reason for Visit * Reason Comments Med Refill Encounter Details Date Type Department Care Team (Late st Contact Info) Description 01/20/2025 Refill Department of Oncology in [place], [place] [address] [place] [phone] Mathew Louis M.D. [address] [place] [phone] Med Refill Social History Tobacco Use Types Packs/Day Years Used Date Smoking Tobacco: Never Passive Smoke Exposure: Past Smokeless Tobacco: Never Passive Exposure Comments:Y ears & Years ago Alcohol Use Standard Drinks/Week Comments Yes 20 (1 standard drink = 0.6 oz pu re alcohol) Daily [facility] Utilities Answer Date Recorded In the past [...] re latives? Once a week 08/23/2022 Attends [employer] Not on file 08/23 Do you belong to any clubs o r organizations such as holiness groups, unions, fraternal or athletic groups, or [...] Answer Date Recorded PHQ-2 Score 0 08/03/2019 [facility] [place] [facility] - Occupational [...] your living situation today? [facility] 12/28/2023 Education Answer Date Recorded What is the highest level of school you have completed or the highest degree you have received? 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 - 01/27/2025 11:55 AM CDT Addended by: JENNIFER SALEEM on: 01/27/2025 11:55 AM Modules accepted: Orders * Telephone Encounter - Jennifer Saleem R.N. - 01/27/2025 11:01 AM CDT ASSESSMENT I called Mr. Stearns in symptom assessment. He previously received amoxicillin from Dr. Louis on December 20 for continued breathing difficulties. He has a long history of chronic prednisone use, bronchiectasis, and chronic respiratory failure on 2 L of oxygen at all times. He continues to have shortness of breath since stopping the amoxicillin. He is now having intermittent chest tightness. He denies any tightness at the time of the call. He denies any chest pain or pressure. He is coughing up sputum, but denies this has gotten worse. He keeps a cup with him to spit frequently through out the day. Denies any yellow or green colored sputum. No fevers or chills. He feels short of breath, but his SpO2 has remained between 95-97%. He has not required to increase his oxygen needs. He is hoping for a new prescription of antibiotics to help. PLAN I let Mr. Stearns know that Dr. Louis is not recommending renewal of amoxicillin if the prescription did not help his symptoms. Dr. Louis also recommended that he be evaluated with Pulmonary Medicine, for their specialty recommendations. Mr. Stearns feels that amoxicillin did help some, and believes that more antibiotics would help him, based of his history and what has helped in the past. Heis more closely followed by Allergy, who would rotate between three different antibiotics. He couldnot recall which ones. If amoxicillin is not recommended to re-start, then he is questioning if another antibiotic could be used. After discussion with Kimberly Alvarez PharmD, and Kailash Cantu DNP, I did recommend that Mr. Stearns be evaluated at the local emergency department or urgent care for work up of his symptoms. I shared that it's unsafe to be sending a new prescription for him to take, without evaluation. However, Mr. Stearns remains confident that he is in need of antibiotics based off his symptoms and history. He then returns for reimaging next January 31. I let him know that I would further discuss with Dr. Louis and call back with his recommendations. In the meantime, recommended that he reach out to Allergy in update. Disposition/Recommendation: notified provider and awaiting recommendations. Information/Education: patient/caller able to teach back. Caller agreeable to plan of care: yes. The following references were used: nursing clinical judgement and provider Kimberly Alvarez PharmD, and Kailash Cantu DNP . ADDENDUM After discussion with Dr. Louis, I called Mr. Stearns. I let him know that Dr. Louis will not renew prescription for antibiotics, as he needs to be evaluated to ensure that he is being treatedappropriately. I shared it would be unsafe to send a new prescription, if we do not know the cause of his symptoms. Dr. Louis recommended Pulmonary, but I did explain that Mr. Stearns does work more closely with Allergy. Therefore, we will put through a return order for Allergy. I did encourage Mr. Stearns to reach out to Allergy for symptoms. In the meantime, recommended evaluation at local emergency department or urgent care for symptom care now. Mr. Stearns shared he will see how he feels later this afternoon when his returns home around 1:00 PM. documented in this encounter Plan of Treatment Upcoming Encounters Date Type Department Care Team (Latest Contact Info) Description 01/31/2025 4:00 PM CDT Appointment Department of Radiology, [facility], in [place] [address] [place] [phone] Mathew Louis M.D. [address] [place] [phone] 02/01/2025 11:30 AM CDT Lab Department of Oncology in [place], [place] [address] [place] [phone] Dafne Guerrero APRN, C.N.P., M.S. [address] [place] [phone] 02/01/2025 1:30 PM CDT Office Visit Department of Oncology in [address] [phone] Jaskaran Harris M.D., Ph.D. [address] [place] [phone] 02/01/2025 2:15 PM CDT Infusion Department of Oncology in [place], [place] [address] [place] [phone] Dafne Guerrero APRN, C.N.P., M.S. [address] [place] [phone] 02/16/2025 10:15 AM CDT Clinical Communication Virtual Review in [place], [place] [address] [place] [phone] 02/21/2025 9:00 AM CDT Lab Department of Oncology in [address] [phone] Dafne Guerrero APRN, C.N.P., M.S. [address] [place] [phone] 02/21/2025 10:40 AM CDT Office Visit Department of Oncology in [address] [phone] Dafne Guerrero APRN, Main.N.P., M.S. [address] [place] [phone] 02/21/2025 1:00 PM CDT Infusion Department of Oncology in [place], [place] [address] [place] [phone] Dafne Guerrero APRN, C.N.P., M.S. [address] [place] [phone] 03/20/2025 12:15 PM CDT Clinical Communication Virtual Review in [place], [place] 200 [place] [phone] 03/21/2025 6:30 AM CDT Lab Department of Laboratory Medicine and Pathology, [facility] in [place], [place] [address] [place] [phone] Dafne Guerrero APRN, Main.N.P., M.S. [address] [place] [phone] 03/21/2025 8:20 AM CDT Office Visit Department of Oncology in [address] [phone] Mathew Louis M.D. [address] [place] [phone] 03/21/2025 9:00 AM CDT Infusion Department of Oncology in [address] [phone] Dafne Guerrero APRN, Main.N.P., M.S. [address] [place] [phone] Scheduled Referrals Name Type Priority Associated Diagnoses Orde r Schedule Return to provider in another specialty Outpatient Referral Routine Expected: 01/27/2025, Expires: 04/29/2026 documented as of this encounter Visit Diagnoses Diagnosis Malignant Neoplasm Of Appendix (HCC) Medication Therapy Long-Term Not Anticoagulant Chronic Obstructive Pulmonary Disease With Acute Lower Respiratory Infection (HCC) documented in this encounter Additional Health Concerns Infection Onset Date Last Indicated Resolved Time Protective Environment 04/16/2023 04/16/2023 documented as of this encounter Care Teams Electrostatic Powder Coating Technician Relationship Specialty Start Date End Date Elsewhere, Pcp PCP - General Internal Medicine 10/26/23 documented as of this encounter
--- OUTSIDE RECORDS SUMMARY | 2025-01-27 14:34 | XMS_ITS | Encounter Summary ---
Author Organization [facility] Address [address] [place] [phone] Care Team Providers Care Automatic Stacker Name Role Phone Elsewhere, Pcp Primary Care Provider Unavailabl e Reason for Visit * Episode Based Medications (Routine) - Authorized Specialty Diagnoses / Procedures Referred By Contac t Referred To Contact Diagnoses Malignant Neoplasm Of Appendix (HCC) Medication Therapy Skilled Nursing Not Anticoagulant Medication Therapy Corking Machine Operator Not Anticoagulant Procedures DC ONDANSETRON HCL INJECTION DC LEUCOVORIN CALCIUM INJECTION DC IRINOTECAN INJECTION DC FLUOROURACIL INJECTION Ellis Osorio M.D. Department of Oncology in [place], [place] [address] [place] [phone] Phone: tel: Referral ID Status Reason Start Date Expiration Date V isits Requested Visits Authorized [id number] Authorized 04/07/2023 09/20/2026 24 24 Encounter Details Date Type Department Care Team (Late st Contact Info) Description 12/20/2024 10:00 AM CDT Infusion Department of Oncology in [place], [place] [address] [place] [phone] Dafne Guerrero, YOLANDA, C.N.P., M.S. [address] [place] [phone] Malignant Neoplasm Of Appendix (HCC) (Primary Dx); Medication Therapy Corking Machine Operator Not Anticoagulant; Medication Therapy Skilled Nursing Not Anticoagulant; Peritoneal Carcinomatosis (HCC) Social History Tobacco Use Types Packs/Day Years Used Date Smoking Tobacco: Never Passive Smoke Exposure: Past Smokeless Tobacco: Never Passive Exposure Comments:Y ears & Years ago Alcohol Use Standard Drinks/Week Comments Yes 20 (1 standard drink = 0.6 oz pu re alcohol) Daily [facility] Utilities Answer Date Recorded In the past 12 months has th e [employer] gas, oil, or water [employer] threatened to shut off services in your [...] any clubs o r organizations such as quaker groups, unions, fraternal or athletic groups, or [...] Answer Date Recorded PHQ-2 Score 0 08/03/2019 [facility] - Occupational Stress Questionnaire Answer Date Recorded [...] your living situation today? I have a [facility] place to live 12/28/2023 Education Answer Date Recorded What is the highest level of school you have completed or the highest degree you have received? 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 [address] [place] [phone] 02/01/2025 11:30 AM CDT Lab Department of Oncology in [address] [phone] Dafne Guerrero APRN, C.N.P., M.S. [address] [place] [phone] 02/01/2025 1:30 PM CDT Office Visit Department of Oncology in [address] [phone] Jaskaran Harris M.D., Ph.D. [address] [place] [phone] 02/01/2025 2:15 PM CDT Infusion Department of Oncology in [address] [phone] Dafne Guerrero APRN, C.N.P., M.S. [address] [place] [phone] 02/16/2025 10:15 AM CDT Clinical Communication Virtual Review in [place], [place] 200 [place] [phone] 02/21/2025 9:00 AM CDT Lab Department of Oncology in [address] [phone] Dafne Guerrero APRN, C.N.P., M.S. [address] [place] [phone] 02/21/2025 10:40 AM CDT Office Visit Department of Oncology in [place], [place] [address] [place] [phone] Dafne Guerrero APRN, C.N.Candelario., M.S. [address] [place] [phone] 02/21/2025 1:00 PM CDT Infusion Department of Oncology in [place], [place] [address] [place] [phone] Dafne Guerrero APRN, C.N.Candelario., M.S. [address] [place] [phone] 03/20/2025 12:15 PM CDT Clinical Communication Virtual Review in [place], [place] 200 [place] [phone] 03/21/2025 6:30 AM CDT Lab Department of Laboratory Medicine and Pathology, [facility], in [place], [place] [address] [place] [phone] Dafne Guerrero APRN, C.N.P., M.S. [address] [place] [phone] 03/21/2025 8:20 AM CDT Office Visit Department of Oncology in [place], [place] [address] [place] [phone] Mathew Louis M.D. [address] [place] [phone] 03/21/2025 9:00 AM CDT Infusion Department of Oncology in [place], [place] [address] [place] [phone] Dafne Guerrero APRN, C.N.P., M.S. [address] [place] [phone] documented as of this encounter Visit Diagnoses Diagnosis Malignant Neoplasm Of Appendix (HCC)- Primary Medication Therapy Corking Machine Operator Not Anticoagulant Peritoneal Carcinomatosis (HCC) documented in this encounter Administered Medications Inactive Administered Medications - up to 3 most recent administrations Medication Order MAR Action Action Date Dose Rate Site atropine injection 0.5 mg 0.5 mg, subcutaneous, Once, On Thu12/20/24 at 1030, For 1 dose, Before irinotecan for stomach crampingIndications:Mal ignant Neoplasm Of Appendix (HCC),Medication Therapy Skilled Nursing Not Anticoagulant,Peritonea l Carcinomatosis (HCC) Given 12/20/2024 10:50 AM CDT 0.5 mg Right Lower Abdomen dexAMETHasone injection 8 mg (Decadron) 8 mg, intravenous, Once, On Thu12/20/24 at 1030, For 1 doseIndications:Maligna nt Neoplasm Of Appendix (HCC),Medication Therapy Corking Machine Operator Not Anticoagulant,Peritonea l Carcinomatosis (HCC) Given 12/20/2024 10:16 AM CDT 8 mg fluorouraciL 4,800 mg in NaCl 0.9% 230 mL IVPB (AdruciL) 4,800 mg, intravenous, at 5 mL/hr, Administer over 46 Hours, over 46 hours, First dose on Thu12/20/24 at 1200, For 1 dose, Continuous infusion over 46 hours. Dose reflects TOTAL CALCULATED DOSE to be administered via continuous infusion over the specified length of treatment.Indications:M alignant Neoplasm Of Appendix (HCC),Medication Therapy Skilled Nursing Not Anticoagulant,Peritonea l Carcinomatosis (HCC) Given 12/20/2024 12:25 PM CDT 4,800 mg 5 mL/hr irinotecan 440 mg in NaCl 0.9% 570 mL IVPB (Camptosar) 440 mg (rounded from 428.4 mg = 180 mg/m2 2.38 m2 Treatment Plan BSA from Measured weight), intravenous, at 380 mL/hr, Administer over 90 Minutes, Once, On Thu12/20/24 at 1030, For 1 dose, May be given via y-site with leucovorin. Do NOT refrigerate. PROTECT FROM LIGHT.Indications:Malig nant Neoplasm Of Appendix (HCC),Medication Therapy Skilled Nursing Not Anticoagulant,Peritonea l Carcinomatosis (HCC) New Bag 12/20/2024 10:50 AM CDT 440 mg 380 mL/hr leucovorin 100 mg in NaCl 0.9% 115 mL IVPB 100 mg, intravenous, at 76.7 mL/hr, Administer over 90 Minutes, Once, On e 12/20/24 at 1030, For 1 dose, Can be given via y-site with irinotecan.Indications: Malignant Neoplasm Of Appendix (HCC),Medication Therapy Corking Machine Operator Not Anticoagulant,Peritonea l Carcinomatosis (HCC) New Bag 12/20/2024 10:50 AM CDT 100 mg 76.7 mL/hr palonosetron injection 0.25 mg (Aloxi) 0.25 mg, intravenous, Once, On Thu12/20/24 at 1030, For 1 doseIndications:Maligna nt Neoplasm Of Appendix (HCC),Medication Therapy Corking Machine Operator Not Anticoagulant,Peritonea l Carcinomatosis (HCC) Given 12/20/2024 10:16 AM CDT 0.25 mg sodium chloride 0.9 % injection 10 mL 10 mL, intra-catheter, As needed, line care, Starting on Thu12/20/24 at 0955, When IVAD Accessed and in Use: Flush prior to and following infusion, between multiple consecutive infusions, and prior to blood sampling.Indications:Ma lignant Neoplasm Of Appendix (HCC) Given 12/20/2024 12:23 PM CDT 10 mL Given 12/20/2024 9:55 AM CDT 10 mL documented in this encounter Additional Health Concerns Infection Onset Date Last Indicated Resolved Time Protective Environment 04/16/2023 04/16/2023 documented as of this encounter Care Teams Automatic Stacker Relationship Specialty Start Date End Date Elsewhere, Pcp PCP - General Internal Medicine 10/26/23 documented as of this encounter
--- OUTSIDE RECORDS SUMMARY | 2025-01-27 14:35 | XMS_ITS | Encounter Summary ---
Author Organization [facility] Address [address] [place] [address] Care Team Providers Care Musical Instrument Supervisor Name Role Phone Elsewhere, Pcp Primary Care Provider Unavailabl e Encounter Details Date Type Department Care Team (Latest Contact Info) Description 01/13/2025 12:26 PM CDT - 01/13/2025 11:59 PM CDT Hospital Encounter Division of Pulmonary Medicine in [place], [place] [address] [place] [address] Mathew Louis M.D. [address] [place] [phone] Medication Therapy Dialer Not Anticoagulant (Primary Dx); Malignant Neoplasm Of Appendix (HCC); Peritoneal Carcinomatosis (HCC); Chronic Obstructive Pulmonary Disease With Acute Lower Respiratory Infection (HCC) Discharge Disposition: Home or Self Care Social History Tobacco Use Types Packs/Day Years Used Date Smoking Tobacco: Never Passive Smoke Exposure: Past Smokeless Tobacco: Never Passive Exposure Comments:Y ears & Years ago Alcohol Use Standard Drinks/Week Comments Yes 20 (1 standard drink = 0.6 oz pu re alcohol) Daily C Utilities Answer Date Recorded In the past 12 months has e [employer], gas, oil, or water [employer] threatened to shut off services in your [...] re latives? Once a week 08/23/2022 Attends Scientology Services Not on file 08/23 Do you belong to any clubs o r organizations such as yazdanism groups, unions, fraternal or athletic groups, or [...] Answer Date Recorded PHQ-2 Score 0 08/03/2019 [facility] [place] of Occupat ional Health - Occupational Stress [...] your living situation today? I have a [facility] place to live 12/28/2023 Education Answer Date Recorded What is the highest level of school you have completed or the highest degree you have received? 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 Gender Identity Male 04/30/2018 10:15 AM CDT Sexual Orientation Straight 04/30/2018 10 :15 AM CDT documented as of this encounter Last Filed Vital Signs Vital Sign Reading Time Taken Comments Blood Pressure - - Pulse 88 01/13/2025 12:50 PM CDT Temperature - - Respiratory Rate 16 01/13/2025 12:50 PM CDT Oxygen Saturation 98% 01/13/2025 12:50 PM CDT Inhaled Oxygen Concentration - - Weight - - Height - - Body Mass Index - - documented in this encounter Medications at Time of Discharge albuterol 90 mcg/actuation inhaler INHALE TWO PUFFS BY MOUTH EVERY SIX HOURS NEEDED FOR WHEEZING 36 g 2 11/29/2024 apixaban (Eliquis) 5 mg tablet Take 1 tablet (5 mg total) by mouth 2 (two) times a day. 180 tablet 2 2024 fluticasone propion-salmeter oL 500-50 mcg/dose diskus inhaler INHALE 1 PUFF TWICE DAILY. RINSE MOUTH WITH WATER AFTER USE TO REDUCE AFTERTASTE AND INCIDENCE OF CANDIDIASIS. DO NOT SWALLOW. 60 each 2 10/03/2024 furosemide (Lasix) 20 mg tablet Take 40 mg by mouth daily as needed. 05/22/2023 loperamide (Imodium A-D) 2 mg capsule Take 1 capsule (2 mg total) by mouth 4 (four) times a day as needed for diarrhea. 75 capsule 11 11/29/2024 ondansetron (Zofran) 8 mg tabletIndication s:Malignant Neoplasm Of Appendix (HCC) Take 1 tablet (8 mg total) by mouth every 8 (eight) hours as needed for nausea or vomiting. 30 tablet 11 11/29/2024 predniSONE (Deltasone) 5 mg tablet TAKE FIVE TABLETS BY MOUTH DAILY 150 tablet 3 12/29/2024 prochlorperazine (Compazine) 10 mg tabletIndication s:Malignant Neoplasm Of Appendix (HCC) Take 1 tablet (10 mg total) by mouth every 6 (six) hours as needed for nausea or vomiting. 30 tablet 1 11/29/2024 documented as of this encounter Progress Notes * Shubham Carranza R.R.Telly., L.R.T. - 01/13/2025 12:33 PM CDT 01/13/25 1231 Respiratory Charges $Pentamidine Administration Yes Mr. Carrillo Stearns arrived in [facility] for out-patient Pentamidine treatment. Pre-treated with albuterol nebulizer given in breath-actuated mode for 10 minutes to maximize bronchodilatation in this pt with underlying h/o asthma. Patient tolerated well. Aerosol generating procedure done wearing N95 mask. Electronically signed by: Shubham Carranza R.R.T., L.R.T. 01/13/25 12:33 PM CDT documented in this encounter Plan of Treatment Upcoming Encounters Date Type Department Care Team (Latest Contact Info) Description 01/31/2025 4:00 PM CDT Appointment Department of Radiology, [facility], in [address] [phone] Mathew Louis M.D. [address] [place] [phone] 02/01/2025 11:30 AM CDT Lab Department of Oncology in [address] [phone] Dafne Guerrero APRN, C.N.P., M.S. [address] [place] [phone] 02/01/2025 1:30 PM CDT Office Visit Department of Oncology in [address] [phone] Jaskaran Harris M.D., Ph.D. [address] [place] [phone] 02/01/2025 2:15 PM CDT Infusion Department of Oncology in [address] [phone] Dafne Guerrero APRN, C.N.P., M.S. [address] [place] [phone] 02/16/2025 10:15 AM CDT Clinical Communication Virtual Review in [address] [phone] 02/21/2025 9:00 AM CDT Lab Department of Oncology in [place], [place] [address] [place] [phone] Dafne Guerrero APRN, C.N.P., M.S. [address] [place] [phone] 02/21/2025 10:40 AM CDT Office Visit Department of Oncology in [place], [place] [address] [place] [phone] Dafne Guerrero APRN, C.N.P., M.S. [address] [place] [phone] 02/21/2025 1:00 PM CDT Infusion Department of Oncology in [place], [place] [address] [place] [phone] Dafne Guerrero APRN, C.N.P., M.S. [address] [place] [phone] 03/20/2025 12:15 PM CDT Clinical Communication Virtual Review in [place], [place] 200 [place] [address] 03/21/2025 6:30 AM CDT Lab Department of Laboratory Medicine and Pathology, [facility], in [place], [place] [address] [place] [phone] Dafne Guerrero APRN, C.N.P., M.S. [address] [place] [phone] 03/21/2025 8:20 AM CDT Office Visit Department of Oncology in [place], [place] [address] [place] [phone] Mathew Louis M.D. [address] [place] [phone] 03/21/2025 9:00 AM CDT Infusion Department of Oncology in [place], [place] [address] [place] [address] Dafne Guerrero, YOLANDA, C.N.P., M.S. 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) Chronic Obstructive Pulmonary Disease With Acute Lower Respiratory Infection (HCC) documented in this encounter Administered Medications Inactive Administered Medications - up to 3 most recent administrations Medication Order MAR Action Action Date Dose Rate Site albuterol nebulizer solution 2.5 mg 2.5 mg, nebulization, Once, On Thu01/13/25 at 1245, For 1 doseIndications:Malignant Neoplasm Of Appendix (HCC),Peritoneal Carcinomatosis (HCC),Chronic Obstructive Pulmonary Disease With Acute Lower Respiratory Infection (HCC),Medication Therapy Dialer Not Anticoagulant Given 01/13/2025 12:27 PM CDT 2.5 mg pentamidine nebulizer solution (Nebupent) 300 mg (Nebupent) 300 mg, inhalation, Once, On Thu01/13/25 at 1300, For 1 dose, Indications: Prophylaxis, medicalIndications:Prophylaxis, medical Given 01/13/2025 12:31 PM CDT 300 mg documented in this encounter Additional Health Concerns Infection Onset Date Last Indicated Resolved Time Protective Environment 04/16/2023 04/16/2023 documented as of this encounter Care Teams Musical Instrument Supervisor Relationship Specialty Start Date End Date Elsewhere, Pcp PCP - General Internal Medicine 10/26/23 documented as of this encounter
--- OUTSIDE RECORDS SUMMARY | 2025-01-27 14:35 | XMS_ITS | Encounter Summary ---
Author Organization [facility] Address [address] [place] [address] Care Team Providers Care Tub Washer Name Role Phone Elsewhere, Pcp Primary Care Provider Unavailabl e Reason for Visit * Reason Onset Date Comments Pre-visit Intake 12/15/2024 * Appointment Request (Routine) - Authorized Specialty Diagnoses / Procedures Referred By Zeyad ramirez Referred To Contact Oncology Referral ID Status Reason Start Date Expiration Date V isits Requested Visits Authorized [id number] Authorized 10/20/2024 01/20/2026 1 1 Encounter Details Date Type Department Care Team (Latest Contact Info) Description 12/15/2024 10:00 AM CDT Clinical Communication Virtual Review in [place], [place] 200 [place] [address] Pre-visit Intake Social History Tobacco Use Types Packs/Day Years Used Date Smoking Tobacco: Never Passive Smoke Exposure: Past Smokeless Tobacco: Never Passive Exposure Comments:Y ears & Years ago Alcohol Use Standard Drinks/Week Comments Yes 20 (1 standard drink = 0.6 oz pu re alcohol) Daily [facility] Utilities Answer Date Recorded In the past 12 months has e [employer], gas, oil, or water [employer] threatened to shut off services in your [...] re latives? Once a week 08/23/2022 Attends Quaker Services Not on file 08/23 Do you belong to any clubs o r organizations such as pentecostalism groups, unions, fraternal or athletic groups, or [...] Answer Date Recorded PHQ-2 Score 0 08/03/2019 [facility] [place] of Occupat ional Health - Occupational Stress [...] your living situation today? I have a [employer] place to live 12/28/2023 Education Answer Date Recorded What is the highest level of school you have completed or the highest degree you have received? 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 200 [place] [address] 02/01/2025 11:30 AM CDT Lab Department of Oncology in [place], [place] [address] [place] [phone] Dafne Guerrero APRN, C.N.P., M.S. [address] [place] [phone] 02/01/2025 1:30 PM CDT Office Visit Department of Oncology in [place], [place] [address] [place] [phone] Jaskaran Harris M.D., Ph.D. [address] [place] [phone] 02/01/2025 2:15 PM CDT Infusion Department of Oncology in [address] [phone] Dafne Guerrero APRN, C.NMike., M.S. [address] [place] [phone] 02/16/2025 10:15 AM CDT Clinical Communication Virtual Review in [place], [place] 200 [place] [phone] 02/21/2025 9:00 AM CDT Lab Department of Oncology in [address] [phone] Dafne Guerrero APRN, C.N.P., M.S. [address] [place] [phone] 02/21/2025 10:40 AM CDT Office Visit Department of Oncology in [place], [place] [address] [place] [phone] Dafne Guerrero APRN, C.N.P., M.S. [address] [place] [phone] 02/21/2025 1:00 PM CDT Infusion Department of Oncology in [address] [place] [address] Dafne Guerrero APRN, C.N.P., M.S. [address] [place] [phone] 03/20/2025 12:15 PM CDT Clinical Communication Virtual Review in [place], [place] 200 [place] [address] 03/21/2025 6:30 AM CDT Lab Department of Laboratory Medicine and Pathology, [facility], in [place], [place] [address] [place] [phone] Dafne Guerrero APRN, C.N.P., M.S. [address] [place] [phone] 03/21/2025 8:20 AM CDT Office Visit Department of Oncology in [place], [place] [address] [place] [phone] Mathew Louis M.D. [address] [place] [phone] 03/21/2025 9:00 AM CDT Infusion Department of Oncology in [place], [place] [address] [place] [phone] Dafne Guerrero APRN, C.N.P., M.S. [address] [place] [phone] documented as of this encounter Visit Diagnoses Not on filedocumented in this encounter Additional Health Concerns Infection Onset Date Last Indicated Resolved Time Protective Environment 04/16/2023 04/16/2023 documented as of this encounter Care Teams Tub Washer Relationship Specialty Start Date End Date Elsewhere, Pcp PCP - General Internal Medicine 10/26/23 documented as of this encounter
--- OUTSIDE RECORDS SUMMARY | 2025-01-27 14:35 | XMS_ITS | Encounter Summary ---
Author Organization [facility] Address [address] [place] [address] Care Team Providers Care Brisket Puller Name Role Phone Elsewhere, Pcp Primary Care Provider Unavailabl e Reason for Visit * Reason Comments Med Refill amoxicillin Encounter Details Date Type Department Care Team (Late st Contact Info) Description 01/18/2025 Refill Department of Oncology in [place], [place] [address] [place] [phone] Mathew Louis M.D. [address] [place] [phone] Med Refill (amoxicillin) Social History Tobacco Use Types Packs/Day Years Used Date Smoking Tobacco: Never Passive Smoke Exposure: Past Smokeless Tobacco: Never Passive Exposure Comments:Y ears & Years ago Alcohol Use Standard Drinks/Week Comments Yes 20 (1 standard drink = 0.6 oz pu re alcohol) Daily [facility] Utilities Answer Date Recorded In the past 12 months has e [employer], oil, or water [employer] threatened to shut off services in your [...] re latives? Once a week 08/23/2022 Attends Muslim Services Not on file 08/23 Do you belong to any clubs o r organizations such as sabianism groups, unions, fraternal or athletic groups, or [...] Answer Date Recorded PHQ-2 Score 0 08/03/2019 [facility] of Occupat ional Health - [...] your living situation today? I have a [facility] place to live 12/28/2023 Education Answer Date Recorded What is the highest level of school you have completed or the highest degree you have received? 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 documented in this encounter Plan of Treatment Upcoming Encounters Date Type Department Care Team (Latest Contact Info) Description 01/31/2025 4:00 PM CDT Appointment Department of Radiology, [facility], in [place], [place] [address] [place] [address] Mathew Louis M.D. [address] [place] [phone] 02/01/2025 11:30 AM CDT Lab Department of Oncology in [place], [place] [address] [place] [phone] Dafne Guerrero APRN, Main.N.P., M.S. [address] [place] [phone] 02/01/2025 1:30 PM CDT Office Visit Department of Oncology in [place], [place] [address] [place] [phone] Jaskaran Harris M.D., Ph.D. [address] [place] [phone] 02/01/2025 2:15 PM CDT Infusion Department of Oncology in [place], [place] [address] [place] [phone] Dafne Guerrero APRN, Main.N.P., M.S. [address] [place] [phone] 02/16/2025 10:15 AM CDT Clinical Communication Virtual Review in [place], [place] 200 [place] [address] 02/21/2025 9:00 AM CDT Lab Department of Oncology in [place], [place] [address] [place] [phone] Dafne Guerrero APRN, Main.N.P., M.S. [address] [place] [phone] 02/21/2025 10:40 AM CDT Office Visit Department of Oncology in [place], [place] [address] [place] [phone] Dafne Guerrero APRN, C.N.P., M.S. [address] [place] [phone] 02/21/2025 1:00 PM CDT Infusion Department of Oncology in [place], [place] [address] [place] [phone] Dafne Guerrero APRN, Main.N.P., M.S. [address] [place] [phone] 03/20/2025 12:15 PM CDT Clinical Communication Virtual Review in [place], [place] 200 [place] [phone] 03/21/2025 6:30 AM CDT Lab Department of Laboratory Medicine and Pathology, [facility] in [address] [phone] Dafne Guerrero APRN, C.N.P., M.S. [address] [place] [phone] 03/21/2025 8:20 AM CDT Office Visit Department of Oncology in [address] [phone] Mathew Louis M.D. [address] [place] [phone] 03/21/2025 9:00 AM CDT Infusion Department of Oncology in [address] [phone] Dafne Guerrero APRN, C.N.P., M.S. 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
--- OUTSIDE RECORDS SUMMARY | 2025-01-27 14:35 | XMS_ITS | Encounter Summary ---
Author Organization [facility] Address [address] [place] [address] Care Team Providers Care Single Wire Saw Operator Name Role Phone Elsewhere, Pcp Primary Care Provider Unavailabl e Reason for Visit * Reason Comments Med Refill Encounter Details Date Type Department Care Team (Late st Contact Info) Description 11/25/2024 Refill Division of Allergic Diseases in [place], [place] [address] [place] [phone] Syed Us M.D. [address] [place] [phone] Med Refill Social History Tobacco Use Types Packs/Day Years Used Date Smoking Tobacco: Never Passive Smoke Exposure: Past Smokeless Tobacco: Never Passive Exposure Comments:Y ears & Years ago Alcohol Use Standard Drinks/Week Comments Yes 4 (1 standard drink = 0.6 oz pur e alcohol) Daily [facility] Utilities Answer Date Recorded In the past 12 months has [employer], oil, or water [employer] threatened to shut off services in your [...] re latives? Once a week 08/23/2022 Attends Hindu Services Not on file 08/23 Do you belong to any clubs o r organizations such as mosque groups, unions, fraternal or athletic groups, or [...] Score 0 08/03/2019 [facility] of Occupat ional Health - [...] your living situation today? I have a [facility] place to live 12/28/2023 Education Answer Date Recorded What is the highest level of school you have completed or the highest degree you have received? 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 [address] [place] [phone] 02/01/2025 11:30 AM CDT Lab Department of Oncology in [place], [place] [address] [place] [phone] Dafne Guerrero APRN, C.NMike., M.S. [address] [place] [phone] 02/01/2025 1:30 PM CDT Office Visit Department of Oncology in [place], [place] [address] [place] [phone] Jaskaran Harris M.D., Ph.D. [address] [place] [phone] 02/01/2025 2:15 PM CDT Infusion Department of Oncology in [place], [place] [address] [place] [phone] Dafne Guerrero APRN, C.NMike., M.S. [address] [place] [phone] 02/16/2025 10:15 AM CDT Clinical Communication Virtual Review in [place], [place] 200 [place] [address] 02/21/2025 9:00 AM CDT Lab Department of Oncology in [place], [place] [address] [place] [phone] Dafne Guerrero APRN, C.N.P., M.S. [address] [place] [phone] 02/21/2025 10:40 AM CDT Office Visit Department of Oncology in [place], [place] [address] [place] [phone] Dafne Guerrero APRN, C.N.P., M.S. [address] [place] [phone] 02/21/2025 1:00 PM CDT Infusion Department of Oncology in [place], [place] [address] [place] [phone] Dafne Guerrero APRN, C.NLastP., M.S. [address] [place] [phone] 03/20/2025 12:15 PM CDT Clinical Communication Virtual Review in [place], [place] 200 [place] [address] 03/21/2025 6:30 AM CDT Lab Department of Laboratory Medicine and Pathology, [facility], in [place], [place] [address] [place] [phone] Dafne Guerrero APRN, C.N.P., M.S. [address] [place] [phone] 03/21/2025 8:20 AM CDT Office Visit Department of Oncology in [place], [place] [address] [place] [phone] Mtahew Louis M.D. [address] [place] [phone] 03/21/2025 9:00 AM CDT Infusion Department of Oncology in [place], [place] [address] [place] [phone] aDfne Guerrero APRN, Mani.N.P., M.S. [address] [place] [phone] documented as of this encounter Visit Diagnoses Not on filedocumented in this encounter Additional Health Concerns Infection Onset Date Last Indicated Resolved Time Protective Environment 04/16/2023 04/16/2023 documented as of this encounter Care Teams Single Wire Saw Operator Relationship Specialty Start Date End Date Elsewhere, Pcp PCP - General Internal Medicine 10/26/23 documented as of this encounter
--- OUTSIDE RECORDS SUMMARY | 2025-01-27 14:35 | XMS_ITS | Encounter Summary ---
Author Organization [facility] Address [address] [place] [address] Care Team Providers Care Unix Manager Name Role Phone Elsewhere, Pcp Primary Care Provider Unavailabl e Encounter Details Date Type Department Care Team (Late st Contact Info) Description 10/12/2002 Historical Ophthalmology RST OPH Davon Maki M.D. 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 - 10/12/2002 12:00 AM CST Eye General CHIEF COMPLAINT reading blur HISTORY OF PRESENT ILLNESS Noticing vision blur when reading for past 1 year. No blur at far distance. No eye pain, no floaters or flashes, denies diplopia. Was told 1 year ago he had the start of cataracts. On prednisone use for 33 years. DIAGNOSIS #1 myopic astigmatism/presbyopia rx given #2 psc cataracts mild, no rx yet. [facility] Reports - EYEGEN Id: [id number] Status: Fnl documented in this encounter Plan of Treatment Upcoming Encounters Date Type Department Care Team (Latest Contact Info) Description 01/31/2025 4:00 PM CDT Appointment Department of Radiology, [facility], in [place], [place] [address] [place] [phone] Mathew Louis M.D. [address] [place] [phone] 02/01/2025 11:30 AM CDT Lab Department of Oncology in [place], [place] [address] [place] [phone] Dafne Guerrero APRN, C.N.P., M.S. [address] [place] [phone] 02/01/2025 1:30 PM CDT Office Visit Department of Oncology in [place], [place] [address] [place] [phone] Jaskaran Harris M.D., Ph.D. [address] [place] [phone] 02/01/2025 2:15 PM CDT Infusion Department of Oncology in [address] [phone] Dafne Guerrero APRN, C.N.P., M.S. [address] [place] [phone] 02/16/2025 10:15 AM CDT Clinical Communication Virtual Review in [place], [place] 200 [place] [phone] 02/21/2025 9:00 AM CDT Lab Department of Oncology in [address] [phone] Dafne Guerrero APRN, C.N.P., M.S. [address] [place] [phone] 02/21/2025 10:40 AM CDT Office Visit Department of Oncology in [place], [place] [address] [place] [phone] Dafne Guerrero APRN, Main.N.P., M.S. [address] [place] [phone] 02/21/2025 1:00 PM CDT Infusion Department of Oncology in [place], [place] [address] [place] [phone] Dafne Guerrero APRN, C.N.P., M.S. [address] [place] [phone] 03/20/2025 12:15 PM CDT Clinical Communication Virtual Review in [place], [place] 200 [place] [address] 03/21/2025 6:30 AM CDT Lab Department of Laboratory Medicine and Pathology, [facility], in [place], [place] [address] [place] [phone] Dafne Guerrero APRN, C.N.P., M.S. [address] [place] [phone] 03/21/2025 8:20 AM CDT Office Visit Department of Oncology in [place], [place] [address] [place] [phone] Mathew Louis M.D. [address] [place] [phone] 03/21/2025 9:00 AM CDT Infusion Department of Oncology in [place], [place] [address] [place] [phone] Dafne Guerrero APRN, C.N.P., M.S. [address] [place] [address] [place] [phone] documented as of this encounter Visit Diagnoses Not on filedocumented in this encounter Additional Health Concerns Infection Onset Date Last Indicated Resolved Time COVID19 Pending 01/28/2020 01/28/2020 01/29/2020 1 :36 AM CDT COVID19 Pending 02/18/2020 02/18/2020 02/18/2020 1 0:22 PM CDT COVID19 Pending 03/26/2020 03/26/2020 03/27/2020 2 :59 PM CDT COVID19 Pending 03/04/2021 03/04/2021 03/04/2021 1 :19 PM CDT COVID19 Pending 12/12/2021 12/12/2021 12/12/2021 1 2:10 PM CDT Protective Environment 04/16/2023 04/16/2023 documented as of this encounter Care Teams Unix Manager Relationship Specialty Start Date End Date Elsewhere, Pcp PCP - General Internal Medicine 10/26/23 documented as of this encounter
--- OUTSIDE RECORDS SUMMARY | 2025-01-27 14:35 | XMS_ITS | Encounter Summary ---
Author Organization [facility] Address [address] [place] [address] Care Team Providers Care Blow Mold Operator Name Role Phone Elsewhere, Pcp Primary Care Provider Unavailabl e Reason for Visit * Reason Onset Date Comments Chest tightness/SOB 01/18/2025 Encounter Details Date Type Department Care Team (Latest Contact Info) Description 01/18/2025 Clinical Communication Division of Allergic Diseases in [place], [place] [address] [place] [address] Syed Us M.D. [address] [place] [phone] Chest tightness/SOB Social History Tobacco Use Types Packs/Day Years Used Date Smoking Tobacco: Never Passive Smoke Exposure: Past Smokeless Tobacco: Never Passive Exposure Comments:Y ears & Years ago Alcohol Use Standard Drinks/Week Comments Yes 20 (1 standard drink = 0.6 oz pu re alcohol) Daily [facility] Utilities Answer Date Recorded In the past 12 months has [employer] gas, oil, or water [employer] threatened to shut off services in your [...] re latives? Once a week 08/23/2022 Attends Judaism Services Not on file 08/23 Do you belong to any clubs o r organizations such as christianity groups, unions, fraternal or athletic groups, or [...] Answer Date Recorded PHQ-2 Score 0 08/03/2019 [facility] [place] of Occupat ional Health - Occupational Stress [...] your living situation today? I have a [employer] place to live 12/28/2023 Education Answer Date Recorded What is the highest level of school you have completed or the highest degree you have received? 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 200 [place] [address] 02/01/2025 11:30 AM CDT Lab Department of Oncology in [place], [place] [address] [place] [phone] Dafne Guerrero APRN, C.N.P., M.S. [address] [place] [phone] 02/01/2025 1:30 PM CDT Office Visit Department of Oncology in [place], [place] [address] [place] [phone] Jaskaran Harris M.D., Ph.D. [address] [place] [phone] 02/01/2025 2:15 PM CDT Infusion Department of Oncology in [place], [place] [address] [place] [phone] Dafne Guerrero APRN, C.NMike., M.S. [address] [place] [phone] 02/16/2025 10:15 AM CDT Clinical Communication Virtual Review in [place], [place] 200 [place] [address] 02/21/2025 9:00 AM CDT Lab Department of Oncology in [address] [phone] Dafne Guerrero APRN, C.N.P., M.S. [address] [place] [phone] 02/21/2025 10:40 AM CDT Office Visit Department of Oncology in [place], [place] [address] [place] [phone] Dafne Guerrero APRN, C.N.P., M.S. [address] [place] [phone] 02/21/2025 1:00 PM CDT Infusion Department of Oncology in [place], [place] [address] [place] [phone] Dafne Guerrero APRN, C.N.P., M.S. [address] [place] [phone] 03/20/2025 12:15 PM CDT Clinical Communication Virtual Review in [place], [place] 200 [place] [address] 03/21/2025 6:30 AM CDT Lab Department of Laboratory Medicine and Pathology, [facility], in [place], [place] [address] [place] [phone] Dafne Guerrero APRN, C.N.P., M.S. [address] [place] [phone] 03/21/2025 8:20 AM CDT Office Visit Department of Oncology in [address] [phone] Mathew Louis M.D. [address] [place] [phone] 03/21/2025 9:00 AM CDT Infusion Department of Oncology in [address] [phone] Dafne Guerrero APRN, C.N.P., M.S. [address] [place] [phone] documented as of this encounter Visit Diagnoses Not on filedocumented in this encounter Additional Health Concerns Infection Onset Date Last Indicated Resolved Time Protective Environment 04/16/2023 04/16/2023 documented as of this encounter Care Teams Blow Mold Operator Relationship Specialty Start Date End Date Elsewhere, Pcp PCP - General Internal Medicine 10/26/23 documented as of this encounter
--- OUTSIDE RECORDS SUMMARY | 2025-01-27 14:35 | XMS_ITS | Encounter Summary ---
Author Organization [facility] Address [address] [place] [address] Care Team Providers Care Or First Assist Registered Nurse Name Role Phone Elsewhere, Pcp Primary Care Provider Unavailabl e Reason for Visit * Episode Based Medications (Routine) - Authorized Specialty Diagnoses / Procedures Referred By Contac t Referred To Contact Diagnoses Malignant Neoplasm Of Appendix (HCC) Medication Therapy Halfway Not Anticoagulant Medication Therapy Digital Imager Not Anticoagulant Procedures IA ONDANSETRON HCL INJECTION IA LEUCOVORIN CALCIUM INJECTION IA IRINOTECAN INJECTION IA FLUOROURACIL INJECTION Ellis Osorio M.D. Department of Oncology in [place], [place] [address] [place] [phone] Phone: tel: Referral ID Status Reason Start Date Expiration Date V isits Requested Visits Authorized [id number] Authorized 04/07/2023 09/20/2026 24 24 Encounter Details Date Type Department Care Team (Late st Contact Info) Description 01/11/2025 9:30 AM CDT Infusion Department of Oncology in [place], [place] [address] [place] [phone] Dafne Guerrero, YOLANDA, C.N.P., M.S. [address] [place] [phone] Medication Therapy Halfway Not Anticoagulant (Primary Dx); Malignant Neoplasm Of Appendix (HCC); Medication Therapy Halfway Not Anticoagulant Social History Tobacco Use Types Packs/Day Years Used Date Smoking Tobacco: Never Passive Smoke Exposure: Past Smokeless Tobacco: Never Passive Exposure Comments:Y ears & Years ago Alcohol Use Standard Drinks/Week Comments Yes 20 (1 standard drink = 0.6 oz pu re alcohol) Daily [facility] Utilities Answer Date Recorded In the [...] re latives? Once a week 08/23/2022 Attends Yazdanism Services Not on file 08/23 Do you belong to any clubs o r organizations such as evangelical groups, unions, fraternal or athletic groups, or [...] Answer Date Recorded PHQ-2 Score 0 08/03/2019 [facility] of Occupat ional [facility] - Occupational Stress Questionnaire Answer Date [...] your living situation today? I have a [facility] place to live 12/28/2023 Education Answer Date Recorded What is the highest level of school you have completed or the highest degree you have received? Associate degree: occupational, technical, or vocational program 12/10/2021 Sex and Gender Information Value Date Recorded Sex Assigned at Male 04/30/2018 10:15 AM CDT Legal Sex Male 1:57 AM RN PLASTICS Gender Identity Male 04/30/2018 10:15 AM CDT Sexual Orientation Straight 04/30/2018 10 :15 AM CDT documented as of this encounter Plan of Treatment Upcoming Encounters Date Type Department Care Team (Latest Contact Info) Description 01/31/2025 4:00 PM CDT Appointment Department of Radiology, [facility], in [address] [phone] Mathew Louis M.D. [address] [place] [phone] 02/01/2025 11:30 AM CDT Lab Department of Oncology in [address] [phone] Dafne Guerrero APRN, C.N.P., M.S. [address] [place] [phone] 02/01/2025 1:30 PM CDT Office Visit Department of Oncology in [address] [phone] Jaskaran Harris M.D., Ph.D. [address] [place] [phone] 02/01/2025 2:15 PM CDT Infusion Department of Oncology in [address] [phone] Dafne Guerrero APRN, C.N.P., M.S. [address] [place] [phone] 02/16/2025 10:15 AM CDT Clinical Communication Virtual Review in [address] [phone] 02/21/2025 9:00 AM CDT Lab Department of Oncology in [address] [phone] Dafne Guerrero APRN, C.N.P., M.S. [address] [place] [address] [place] [phone] 02/21/2025 10:40 AM CDT Office Visit Department of Oncology in [place], [place] [address] [place] [phone] Dafne Guerrero APRN, Main.N.P., M.S. [address] [place] [phone] 02/21/2025 1:00 PM CDT Infusion Department of Oncology in [place], [place] [address] [place] [phone] Dafne Guerrero APRN, C.N.P., M.S. [address] [place] [phone] 03/20/2025 12:15 PM CDT Clinical Communication Virtual Review in [place], [place] 200 [place] [address] 03/21/2025 6:30 AM CDT Lab Department of Laboratory Medicine and Pathology, [facility], in [place], [place] [address] [place] [phone] Dafne Guerrero APRN, Main.N.P., M.S. [address] [place] [phone] 03/21/2025 8:20 AM CDT Office Visit Department of Oncology in [place], [place] [address] [place] [phone] Mathew Louis M.D. [address] [place] [phone] 03/21/2025 9:00 AM CDT Infusion Department of Oncology in [place], [place] [address] [place] [phone] Dafne Guerrero APRN, C.N.P., M.S. [address] [place] [phone] documented as of this encounter Visit Diagnoses Diagnosis Medication Therapy Digital Imager Not Anticoagulant- Primary Malignant Neoplasm Of Appendix (HCC) documented in this encounter Administered Medications Inactive Administered Medications - up to 3 most recent administrations Medication Order MAR Action Action Date Dose Rate Site atropine injection 0.5 mg 0.5 mg, subcutaneous, Once, On Thu01/11/25 at 1030, For 1 dose, Before irinotecan for stomach crampingIndications:Mal ignant Neoplasm Of Appendix (HCC),Medication Therapy Digital Imager Not Anticoagulant Given 01/11/2025 10:30 AM CDT 0.5 mg Right Upper Abdomen dexAMETHasone injection 8 mg (Decadron) 8 mg, intravenous, Once, On Thu01/11/25 at 1030, For 1 doseIndications:Maligna nt Neoplasm Of Appendix (HCC),Medication Therapy Digital Imager Not Anticoagulant Given 01/11/2025 10:12 AM CDT 8 mg fluorouraciL 4,800 mg in NaCl 0.9% 230 mL IVPB (AdruciL) 4,800 mg, intravenous, at 5 mL/hr, Administer over 46 Hours, over 46 hours, First dose on Thu01/11/25 at 1200, For 1 dose, Continuous infusion over 46 hours. Dose reflects TOTAL CALCULATED DOSE to be administered via continuous infusion over the specified length of treatment.Indications:M alignant Neoplasm Of Appendix (HCC),Medication Therapy Digital Imager Not Anticoagulant Given 01/11/2025 11:59 AM CDT 4,800 mg 5 mL/hr irinotecan 440 mg in NaCl 0.9% 570 mL IVPB (Camptosar) 440 mg (rounded from 423 mg = 180 mg/m2 2.35 m2 Treatment Plan BSA from Measured weight), intravenous, at 380 mL/hr, Administer over 90 Minutes, Once, On Thu01/11/25 at 1030, For 1 dose, May be given via y-site with leucovorin. Do NOT refrigerate. PROTECT FROM LIGHT.Indications:Malig nant Neoplasm Of Appendix (HCC),Medication Therapy Digital Imager Not Anticoagulant New Bag 01/11/2025 10:31 AM CDT 440 mg 380 mL/hr leucovorin 100 mg in NaCl 0.9% 115 mL IVPB 100 mg, intravenous, at 76.7 mL/hr, Administer over 90 Minutes, Once, On Thu01/11/25 at 1030, For 1 dose, Can be given via y-site with irinotecan.Indications: Malignant Neoplasm Of Appendix (HCC),Medication Therapy Digital Imager Not Anticoagulant New Bag 01/11/2025 10:31 AM CDT 100 mg 76.7 mL/hr palonosetron injection 0.25 mg (Aloxi) 0.25 mg, intravenous, Once, On Thu01/11/25 at 1030, For 1 doseIndications:Maligna nt Neoplasm Of Appendix (HCC),Medication Therapy Digital Imager Not Anticoagulant Given 01/11/2025 10:11 AM CDT 0.25 mg documented in this encounter Additional Health Concerns Infection Onset Date Last Indicated Resolved Time Protective Environment 04/16/2023 04/16/2023 documented as of this encounter Care Teams Or First Assist Registered Nurse Relationship Specialty Start Date End Date Elsewhere, Pcp PCP - General Internal Medicine 10/26/23 documented as of this encounter
--- OUTSIDE RECORDS SUMMARY | 2025-01-27 14:35 | XMS_ITS | Encounter Summary ---
Author Organization [facility] Address [address] [place] [address] Care Team Providers Care Labor Delivery Specialist Name Role Phone Elsewhere, Pcp Primary Care Provider Unavailabl e Encounter Details Date Type Department Care Team (Late st Contact Info) Description 01/18/2025 Clinical Communication Department of Oncology in [place], [place] [address] [place] [phone] Dafne Guerrero, YOLANDA, C.N.P., M.S. [address] [place] [phone] Social History Tobacco Use Types Packs/Day Years Used Date Smoking Tobacco: Never Passive Smoke Exposure: Past Smokeless Tobacco: Never Passive Exposure Comments:Y ears & Years ago Alcohol Use Standard Drinks/Week Comments Yes 20 (1 standard drink = 0.6 oz pu re alcohol) Daily [facility] Utilities Answer Date Recorded In the past 12 months has [employer], oil, or water [email or web address] threatened to shut off services in your [...] re latives? Once a week 08/23/2022 Attends Baptism Services Not on file 08/23 Do you belong to any clubs o r organizations such as methodist groups, unions, fraternal or athletic groups, or [...] Answer Date Recorded PHQ-2 Score 0 08/03/2019 [facility] of Occupat ional Health [...] your living situation today? I have a [facility] place to live 12/28/2023 Education Answer Date Recorded What is the highest level of school you have completed or the highest degree you have received? 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 [address] [place] [phone] 02/01/2025 11:30 AM CDT Lab Department of Oncology in [place], [place] [address] [place] [phone] HartgersDafne APRN, C.NMike., M.S. [address] [place] [phone] 02/01/2025 1:30 PM CDT Office Visit Department of Oncology in [place], [place] [address] [place] [phone] Jaskaran Harris M.D., Ph.D. [address] [place] [phone] 02/01/2025 2:15 PM CDT Infusion Department of Oncology in [place], [place] [address] [place] [phone] Dafne Guerrero APRN, C.N.P., M.S. [address] [place] [phone] 02/16/2025 10:15 AM CDT Clinical Communication Virtual Review in [place], [place] 200 [place] [phone] 02/21/2025 9:00 AM CDT Lab Department of Oncology in [address] [phone] Dafne Guerrero APRN, C.NMike., M.S. [address] [place] [phone] 02/21/2025 10:40 AM CDT Office Visit Department of Oncology in [place], [place] [address] [place] [phone] Dafne Guerrero APRN, C.N.P., M.S. [address] [place] [phone] 02/21/2025 1:00 PM CDT Infusion Department of Oncology in [place], [place] [address] [place] [phone] Dafne Guerrero APRN, C.N.P., M.S. [address] [place] [phone] 03/20/2025 12:15 PM CDT Clinical Communication Virtual Review in [place], [place] 200 [place] [address] 03/21/2025 6:30 AM CDT Lab Department of Laboratory Medicine and Pathology, [facility], in [place], [place] [address] [place] [phone] Dafne Guerrero APRN, C.N.P., M.S. [address] [place] [phone] 03/21/2025 8:20 AM CDT Office Visit Department of Oncology in [place], [place] [address] [place] [phone] Mathew Louis M.D. [address] [place] [phone] 03/21/2025 9:00 AM CDT Infusion Department of Oncology in [place], [place] [address] [place] [phone] Dafne Guerrero APRN, C.N.P., M.S. [address] [place] [phone] documented as of this encounter Visit Diagnoses Not on filedocumented in this encounter Additional Health Concerns Infection Onset Date Last Indicated Resolved Time Protective Environment 04/16/2023 04/16/2023 documented as of this encounter Care Teams Labor Delivery Specialist Relationship Specialty Start Date End Date Elsewhere, Pcp PCP - General Internal Medicine 10/26/23 documented as of this encounter
--- OUTSIDE RECORDS SUMMARY | 2025-01-27 14:35 | XMS_ITS | Encounter Summary ---
Author Organization [facility] Address [address] [place] [address] Care Team Providers Care Farm Labor Contractor Name Role Phone Elsewhere, Pcp Primary Care Provider Unavailabl e Reason for Visit * Reason Comments Med Refill Encounter Details Date Type Department Care Team (Late st Contact Info) Description 12/29/2024 Refill Department of Oncology in [place], [place] [address] [place] [phone] Dafne Guerrero, YOLANDA, C.N.P., M.S. [address] [place] [phone] Med Refill Social History Tobacco Use Types Packs/Day Years Used Date Smoking Tobacco: Never Passive Smoke Exposure: Past Smokeless Tobacco: Never Passive Exposure Comments:Y ears & Years ago Alcohol Use Standard Drinks/Week Comments Yes 20 (1 standard drink = 0.6 oz pu re alcohol) Daily [facility] Utilities Answer Date Recorded In the past 12 months has [employer] gas, oil, or water [employer] threatened to shut off services in your [...] re latives? Once a week 08/23/2022 Attends [employer] Not on file 08/23 Do you [...] Answer Date Recorded PHQ-2 Score 0 08/03/2019 [facility] of Occupat ional Health - Occupational Stress [...] your living situation today? I have a [facility] place to live 12/28/2023 Education Answer Date Recorded What is the highest level of school you have completed or the highest degree you have received? 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 [address] [place] [address] 02/01/2025 11:30 AM CDT Lab Department of Oncology in [place], [place] [address] [place] [phone] Dafne Guerrero APRN, C.N.P., M.S. [address] [place] [phone] 02/01/2025 1:30 PM CDT Office Visit Department of Oncology in [place], [place] [address] [place] [phone] Jaskaran Harris M.D., Ph.D. [address] [place] [phone] 02/01/2025 2:15 PM CDT Infusion Department of Oncology in [place], [place] [address] [place] [phone] Dfane Guerrero APRN, C.NMike., M.S. [address] [place] [phone] 02/16/2025 10:15 AM CDT Clinical Communication Virtual Review in [place], [place] 200 [place] [phone] 02/21/2025 9:00 AM CDT Lab Department of Oncology in [address] [phone] Dafne Guerrero APRN, C.N.P., M.S. [address] [place] [phone] 02/21/2025 10:40 AM CDT Office Visit Department of Oncology in [place], [place] [address] [place] [phone] Dafne Guerrero APRN, C.N.P., M.S. [address] [place] [phone] 02/21/2025 1:00 PM CDT Infusion Department of Oncology in [place], [place] [address] [place] [phone] Dafne Guerrero APRN, C.N.P., M.S. [address] [place] [phone] 03/20/2025 12:15 PM CDT Clinical Communication Virtual Review in [place], [place] 200 [place] [phone] 03/21/2025 6:30 AM CDT Lab Department of Laboratory Medicine and Pathology, [facility] in [place], [place] [address] [place] [phone] Dafne Guerrero APRN, C.N.P., M.S. [address] [place] [phone] 03/21/2025 8:20 AM CDT Office Visit Department of Oncology in [address] [phone] Mathew Louis M.D. [address] [place] [phone] 03/21/2025 9:00 AM CDT Infusion Department of Oncology in [place], [place] [address] [place] [phone] Dafne Guerrero APRN, C.N.P., M.S. [address] [place] [phone] documented as of this encounter Visit Diagnoses Not on filedocumented in this encounter Additional Health Concerns Infection Onset Date Last Indicated Resolved Time Protective Environment 04/16/2023 04/16/2023 documented as of this encounter Care Teams Farm Labor Contractor Relationship Specialty Start Date End Date Elsewhere, Pcp PCP - General Internal Medicine 10/26/23 documented as of this encounter
--- OUTSIDE RECORDS SUMMARY | 2025-01-27 14:35 | XMS_ITS | Encounter Summary ---
Author Organization [facility] Address [address] [place] [address] Care Team Providers Care Job Hand Name Role Phone Elsewhere, Pcp Primary Care Provider Unavailabl e Reason for Visit * Reason Comments Med Refill Prednisone Encounter Details Date Type Department Care Team (Late st Contact Info) Description 11/17/2024 Refill Department of Oncology in [place], [place] [address] [place] [phone] Dafne Guererro, YOLANDA, C.N.P., M.S. [address] [place] [phone] Med Refill (Prednisone ) Social History Tobacco Use Types Packs/Day Years Used Date Smoking Tobacco: Never Passive Smoke Exposure: Past Smokeless Tobacco: Never Passive Exposure Comments:Y ears & Years ago Alcohol Use Standard Drinks/Week Comments Yes 4 (1 standard drink = 0.6 oz pur e alcohol) Daily [facility] Utilities Answer Date Recorded In the past 12 months has [employer], gas, oil, or water [employer] threatened to shut off services in your [...] re latives? Once a week 08/23/2022 Attends [employer] Not on file 08/23 Do you belong to any clubs o r organizations such as baptist groups, unions, fraternal or athletic groups, or [...] Answer Date Recorded PHQ-2 Score 0 08/03/2019 [facility] of Occupat ional Health - Occupational Stress [...] your living situation today? I have a [facility] place to live 12/28/2023 Education Answer Date Recorded What is the highest level of school you have completed or the highest degree you have received? 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 200 [place] [address] 02/01/2025 11:30 AM CDT Lab Department of Oncology in [place], [place] [address] [place] [phone] Dafne Guerrero APRN, C.N.P., M.S. [address] [place] [phone] 02/01/2025 1:30 PM CDT Office Visit Department of Oncology in [address] [phone] Jaskaran Harris M.D., Ph.D. [address] [place] [phone] 02/01/2025 2:15 PM CDT Infusion Department of Oncology in [address] [phone] Dafne Guerrero APRN, C.N.Candelario., M.S. [address] [place] [phone] 02/16/2025 10:15 AM CDT Clinical Communication Virtual Review in [place], [place] 200 [place] [phone] 02/21/2025 9:00 AM CDT Lab Department of Oncology in [address] [phone] Dafne Guerrero APRN, C.N.P., M.S. [address] [place] [phone] 02/21/2025 10:40 AM CDT Office Visit Department of Oncology in [address] [phone] Dafne Guerrero APRN, C.N.P., M.S. [address] [place] [phone] 02/21/2025 1:00 PM CDT Infusion Department of Oncology in [address] [phone] Dafne Guerrero APRN, C.N.P., M.S. [address] [place] [phone] 03/20/2025 12:15 PM CDT Clinical Communication Virtual Review in [place], [place] 200 [place] [phone] 03/21/2025 6:30 AM CDT Lab Department of Laboratory Medicine and Pathology, [facility], in [place], [place] [address] [place] [phone] Dafne Guerrero APRN, C.N.P., M.S. [address] [place] [phone] 03/21/2025 8:20 AM CDT Office Visit Department of Oncology in [place], [place] [address] [place] [phone] Mathew Louis M.D. [address] [place] [phone] 03/21/2025 9:00 AM CDT Infusion Department of Oncology in [place], [place] [address] [place] [phone] Dafne Guerrero APRN, C.N.P., M.S. [address] [place] [phone] documented as of this encounter Visit Diagnoses Not on filedocumented in this encounter Additional Health Concerns Infection Onset Date Last Indicated Resolved Time Protective Environment 04/16/2023 04/16/2023 documented as of this encounter Care Teams Job Hand Relationship Specialty Start Date End Date Elsewhere, Pcp PCP - General Internal Medicine 10/26/23 documented as of this encounter
--- OUTSIDE RECORDS SUMMARY | 2025-01-27 14:36 | XMS_ITS ---
Author Organization [facility] Address [address] [place] [address] Care Team Providers Care Legal Support Assistant Name Role Phone Elsewhere, Pcp Primary Care Provider Unavailabl e Active Problems * This document contains information received from the source organization and may not represent a complete record from that organization. Problem Noted Date Diagnosed Date Chronic Obstructive Pulmonar y Disease With Acute Lower Respiratory Infection 12/20/2024 Thrombosis Jugular Vein Internal Acute Right 09/2024 Chronic Respiratory Failure With Hypoxia 025 Edema Lower Extremity 08/10/2023 Assessment & Plan (08/10/2023 10:40 AM BIOSTATISTICS TEACHER): Patient notes that he has lower extremity edema that comes and goes intermittently. Swelling improves with elevation of his lower extremities. He has Lasix that he uses on a p.r.n. basis for his edema. Patient reports that he is unable to lay flat due to his chronic shortness of breath. This has been an ongoing issue for 20+ years. He will hold his Lasix day of surgery. Peritoneal Carcinomatosis 08/10/2023 Assessment & Plan (08/10/2023 10:49 AM BIOSTATISTICS TEACHER): Scheduled for above procedure 09/24/2023. 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 on 01/31/2020 Assessment & Plan (08/10/2023 10:30 AM BIOSTATISTICS TEACHER): 11/15/2019 Clin/Path Stage Cancer Staging Malignant Neoplasm Of Appendix (HCC) Staging form: Appendix - Carcinoma, AJCC 8th Edition - Clinical stage from 11/15/2019: cT4, cN0, cM0 Total positive nodes: 0 Total nodes examined: 48 Histopathologic type: Mucocarcinoid tumor Mucinous histology: Yes 12/05/2019 Genetic Testing and Tumor Genotyping pMMR by IHC LUL/CANDY- no alteration 03/2023: [employer]: Uncertain significance POLE c.154C> 9p.Nti96Bya) 12/20/2019 - 03/12/2020 Chemotherapy CAPOX / XELOX ( Capecitabine / Oxaliplatin ) Colorectal Start Date: 12/20/2019 03/09/2023 Recurrence Distant 1.) 1.) March 09, 2023: Stable exams until now. CT: C/A/P: Nothing suspicious for metastatic disease to the chest. Improved previously increased areas of endobronchial plugging in the left upper lobe and right lower lobe. Otherwise little change in the chronic airways disease related to varicoid bronchiectasis. Improved left prevascular lymph nodes that were likely reactive. Stable prominent right hilar lymph nodes. New peritoneal metastases, most prominent along the mid to lower abdomen, with trace indeterminate low density fluid extending into a small umbilical hernia, as detailed. No drainable fluid collection or significant volume of malignant ascites. Possible 2 tiny ill-defined hypodense lesions within the inferior right hepatic lobe, which are at least suspicious for metastatic disease given impression #1. 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 04/16/2023 - Chemotherapy FOLFIRI ( Fluorouracil / Leucovorin / Irinotecan ) Start Date: 04/16/2023 Receiving chemotherapy every other Thursday, last received 08/04/2023 Follow Up Examination Status Post Surgery 2019 Obesity Body Mass Index 30-39.9 Adult 11/15/2019 Assessment & Plan (08/10/2023 10:31 AM BIOSTATISTICS TEACHER): Body mass index is 33.7 kg/m . Appendix Disease 10/13/2019 Overview (10/13/2019): Added automatically from request for surgery [id number] Asthma NOS 04/16/2015 Assessment & Plan (08/10/2023 10:36 AM BIOSTATISTICS TEACHER): Currently on Advair and p.r.n. albuterol. Patient currently feels breathing is at baseline. Reports using albuterol four times per day. Patient is oxygen dependent on 2 L via nasal cannula at all times. He has been on oral prednisone at varying doses for more than 20 years. He is currently on 30 mg every other day with 10 mg on alternating days. He has amoxicillin that he uses twice daily when he begins to have flares. He reports 3 days ago he began to have a flare with increasing shortness of breath and increased sputum production and begin to take his amoxicillin. Since starting his amoxicillin 3 days ago he reports symptoms have improved and breathing is now at baseline. At baseline he has productive like green sputum. Last seen by pulmonology November 2021. Pulmonary function testing completed 07/22/2023. This needed demonstrated moderate obstruction with a significant reduction in FVC compared to November 2022. Oximetry was not performed due patient desaturations during testing. Patient did require 2 L via nasal cannula throughout all spirometry testing. The diffusing capacity and lung volume measurements were unable to be performed due to hypoxia. He has an upcoming appointment with pulmonology later this afternoon. 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 The only medication that I see that he could be taking for blood pressure is furosemide which he was instructed to hold day of procedure. 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 Approximately 10 years ago he was also treated with rotating antibiotics 2 weeks on and 2 weeks off. He has a chronic productive cough with green sputum that gets darker when he gets sick. No blood. Also has some exertional dyspnea and notes that he walked from the [employer] [facility] at his own slow pace before electively stopping to rest.. No fever, chills, night sweats, unintentional weight loss. Since his visit with pulmonology he is now oxygen dependent on 2 L via nasal cannula. He recently started flaring and is on amoxicillin twice daily. He has been on the amoxicillin for the past 3 days and notes that his flare symptoms with shortness of breath and increased sputum production has improved. He denies fevers or chills. His upcoming procedure may involve possibly needing to strip the diaphragm and place a chest tube as well as the chemotherapy which can result in significant pulmonary complications even to healthy individuals. He has an upcoming visit with pulmonology later this afternoon to determine if he would be healthy enough to undergo the proposed procedure or if he has room for further optimization of his respiratory status. Current Treatment and Therapy Plans FOLFIRI ( Fluorouracil / Leucovorin / Irinotecan )* Plan Start Date:04/13/2023 Plan Provider:Ellis Osorio M.D. Linked Problems Malignant Neoplasm Of Append ix (HCC)Medication Therapy Project Coordinator Not AnticoagulantMedication Therapy Project Coordinator Not Anticoagulant Treatment Medications Current Day (Day 1 , Cycle 34 - Planned for 02/01/2025) Next Day (Day 1, Cycle 35 - Planned for 02/22/2025) fluorouraciL (AdruciL)fluorouraciL (AdruciL) IVPB in 230 mL (c-series) (AdruciL)irinotecan (Camptosar)irinotecan (Camptosar) IVPB in NaCl 0.9% 500 mL (Camptosar)leucovorin 100 mg IVPB in NaCl 0.9% 100 mL (20 mg/mL) fluorouraciL 4,800 mg in NaCl 0.9% 230 mL IVPB (AdruciL)irinotecan 440 mg in NaCl 0.9% 522 mL IVPB (Camptosar) fluorouraciL 4,800 mg in NaCl 0.9% 230 mL IVPB (AdruciL)irinotecan 440 mg in NaCl 0.9% 522 mL IVPB (Camptosar) pentamidine (NEBUPENT) Inhaled* Plan Start Date:01/13/2025 Plan Provider:Mathew Louis M.D. Linked Problems Malignant Neoplasm Of Append ix (HCC)Peritoneal Carcinomatosis (HCC)Chronic Obstructive Pulmonary Disease With Acute Lower Respiratory Infection (HCC)Medication Therapy Halfway Not Anticoagulant Treatment Medications No medications scheduled. Vascular Access Patency - Implanted Vascular Access Device (IVAD) Venous Non-Valved* Plan Start Date:2023 Linked Problems Malignant Neoplasm Of Append ix (HCC) Treatment Medications No medications scheduled. Past Treatment and Therapy Plans Flushes/Hydration Plan Name Start Date Discontinue Date Treatment Medications Discontinue Reason Plan Provider VASCULAR ACCESS PATENCY - IMPLANTED VASCULAR ACCESS DEVICE (IVAD) VENOUS NON-VALVED 12/04/2020 2023 No medications scheduled. Amendment Change - VASCULAR ACCESS PATENCY - IMPLANTED VASCULAR ACCESS DEVICE (IVAD) VENOUS NON-VALVED 12/20/2019 11/20/2020 No medications scheduled. Therapy Complete Dafne Guerrero APRN, C.N.P., M.S. Hematology / Oncology Treatment 1 Plan Name Start Date Discontinue Date Treatment Medications Discontinue Reason Plan Provider Cycles CAPOX / XELOX ( Capecitabine / Oxaliplatin ) Colorectal 0 09/04/2020 capecitabine (Xeloda)oxalipl atin (Eloxatin)oxali platin (Eloxatin) IVPB in 250 mL (Eloxatin) Therapy Complete Dafne Guerrero APRN, C.N.P., M.S. 4 of 8 cycles started Hematology / Oncology Treatment 2 Plan Name Start Date Discontinue Date Treatment Medications Discontinue Reason Plan Provider Cycles FOLFOX6 + Bevacizumab ( Fluorouracil / Leucovorin / Oxaliplatin / Bevacizumab ) 0 01/31/2020 fluorouraciL (AdruciL) IVPB in 138 mL (AdruciL)leucov malcolm IVPB in D5W 250 mL (20 mg/mL) Therapy Complete Dafne Guerrero APRN, C.N.P., M.S. 1 of 1 cycle started FOLFOX6 ( Fluorouracil / Leucovorin / Oxaliplatin ) ( GI ) 0 12/20/2019 No medications scheduled. Unlisted Dafne Guerrero, YOLANDA, C.N.P., M.S. -1 of 12 cycles Lifetime Dose Tracking * Chemical Lifetime Dose Automatic Entry Manual Entr y Radiation 21 mGy 21 mGy 0 mGy Fluoro Time 1.5 minutes 1.5 minutes 0 minutes DAP (uGy-m2) 576.06 uGy-m2 576.06 uGy-m2 0 uGy-m2
--- OUTSIDE RECORDS SUMMARY | 2025-01-27 14:36 | XMS_ITS | Clinical Summary ---
Author Organization [facility] Address [address] [place] [address] Care Team Providers Care Food Chemist Name Role Phone Elsewhere, Pcp Primary Care Provider Unavailabl e Source Comments Patient records contain information from all sites at [facility]. For routine questions regarding patient records, call [phone] during business hours, M-F 8:00 AM - 5:00 PM Central Time. Record requests for emergency care only can be directed to [phone] at any time.[facility] Allergies Active Allergy Reactions Criticality Noted Date Comments Sulfamethoxazole-Trimethoprim Rash Medium 2022 Medications * This document contains information received from the source organization and may not represent a complete record from that organization. furosemide (Lasix) 20 mg tablet Take 40 mg by mouth daily as needed. 05/22/20 23 Active apixaban (Eliquis) 5 mg tablet Take 1 tablet (5 mg total) by mouth 2 (two) times a day. 180 tablet 2 04/11/20 24 Active heparin 100 unit/mL syringeIndicatio ns:Malignant Neoplasm Of Appendix (HCC),Medication Therapy Sausage Stuffer Not Anticoagulant 5 mL (500 Units total) by intra-cathete r route once as needed for line care for up to 1 dose. Flush IV line AFTER 0.9% Sodium Chloride flush 30 mL 3 4 2:29 PM CDT 06/15/20 24 Active fluticasone propion-salmeter oL 500-50 mcg/dose diskus inhaler INHALE 1 PUFF TWICE DAILY. RINSE MOUTH WITH WATER AFTER USE TO REDUCE AFTERTASTE AND INCIDENCE OF CANDIDIASIS. DO NOT SWALLOW. 60 each 2 10/03/19 25 Active heparin 100 unit/mL syringeIndicatio ns:Malignant Neoplasm Of Appendix (HCC),Medication Therapy Sausage Stuffer Not Anticoagulant 5 mL (500 Units total) by intra-cathete r route once as needed for line care for up to 1 dose. Flush IV line AFTER 0.9% Sodium Chloride flush 5 mL 5 3:14 PM CARTON FORMING MACHINE HELPER 11/09/19 25 Active albuterol 90 mcg/actuation inhaler INHALE TWO PUFFS BY MOUTH EVERY SIX HOURS NEEDED FOR WHEEZING 36 g 2 11/30/19 25 Active ondansetron (Zofran) 8 mg tabletIndication s:Malignant Neoplasm Of Appendix (HCC) Take 1 tablet (8 mg total) by mouth every 8 (eight) hours as needed for nausea or vomiting. 30 tablet 11/30/19 25 Active loperamide (Imodium A-D) 2 mg capsule Take 1 capsule (2 mg total) by mouth 4 (four) times a day as needed for diarrhea. 75 capsule 11/30/19 25 Active prochlorperazine (Compazine) 10 mg tabletIndication s:Malignant Neoplasm Of Appendix (HCC) Take 1 tablet (10 mg total) by mouth every 6 (six) hours as needed for nausea or vomiting. 30 tablet 1 11/30/19 25 Active heparin 100 unit/mL syringeIndicatio ns:Malignant Neoplasm Of Appendix (HCC),Medication Therapy Sausage Stuffer Not Anticoagulant 5 mL (500 Units total) by intra-cathete r route once as needed for line care for up to 1 dose. Flush IV line AFTER 0.9% Sodium Chloride flush 30 mL 5 12:09 PM CDT 11/30/19 25 Active predniSONE (Deltasone) 5 mg tablet TAKE FIVE TABLETS BY MOUTH DAILY 150 tablet 3 12/30/19 25 Active predniSONE (Deltasone) 5 mg tablet TAKE FIVE TABLETS BY MOUTH DAILY 150 tablet 11/17/19 25 025 Discontinued amoxicillin (AmoxiL) 875 mg tabletIndication s:Malignant Neoplasm Of Appendix (HCC),Medication Therapy Half-Way Not Anticoagulant,Me dication Therapy Sausage Stuffer Not Anticoagulant,Ch ronic Obstructive Pulmonary Disease With Acute Lower Respiratory Infection (HCC) Take 1 tablet (875 mg total) by mouth every 12 (twelve) hours for 14 days. 28 tablet 12/21/19 25 025 Active Problems Problem Noted Date Diagnosed Date Chronic Obstructive Pulmonar y Disease With Acute Lower Respiratory Infection 12/20/2024 Thrombosis Jugular Vein Internal Acute Right 09/2024 Chronic Respiratory Failure With Hypoxia 025 Edema Lower Extremity 08/10/2023 Assessment & Plan (08/10/2023 10:40 AM CARTON FORMING MACHINE HELPER): Patient notes that he has lower extremity [...] 08/10/2023 Assessment & Plan (08/10/2023 10:49 AM CARTON FORMING MACHINE HELPER): Scheduled for above procedure 09/24/2023. 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 Appendix Disease 10/13/2019 Overview (10/13/2019): Added automatically from request for surgery [id number] Asthma NOS 04/16/2015 Assessment & Plan (08/10/2023 10:36 AM CARTON FORMING MACHINE HELPER): Currently on Advair and p.r.n. albuterol. Patient [...] 08/18/2006 Assessment & Plan (08/10/2023 10:51 AM CARTON FORMING MACHINE HELPER): Blood pressure 133/79 at today's visit. The only medication that I see that he could be taking for blood pressure is furosemide which he was instructed to hold day of procedure. Aspergillosis Bronchopulmonary Allergic 10/18/19 04 Assessment & Plan (08/10/2023 11:01 AM CARTON FORMING MACHINE HELPER): Per pulmonology note 11/2022: He was first [...] and notes that he walked from the [employer] down to the lobby of the [employer] at his own slow pace before electively [...] for further optimization of his respiratory status. Encounters Date Type Department Care Team Description 01/27/2025 12:00 PM CDT Clinical Communication Virtual Review in [address] [phone] Blood Pressure 01/26/2025 Clinical Communication Division of Pulmonary Medicine in [address] [phone] Cristina Grigsby M.D. Appt Request 01/20/2025 Refill Department of Oncology in [address] [phone] Mathew Louis M.D. Med Refill 01/18/2025 Clinical Communication Division of Allergic Diseases in [address] [phone] Syed Us M.D. Chest tightness/SOB 01/18/2025 Clinical Communication Department of Oncology in [address] [phone] Dafne Guerrero, YOLANDA, C.N.P., M.S. 01/18/2025 Refill Department of Oncology in [address] [phone] Mathew Louis M.D. Med Refill (amoxicillin) 01/13/2025 12:26 PM CDT - 01/13/2025 11:59 PM CDT Hospital Encounter Division of Pulmonary Medicine in [address] [phone] Mathew Louis M.D. Medication Therapy Sausage Stuffer Not Anticoagulant (Primary Dx); Malignant Neoplasm Of Appendix (HCC); Peritoneal Carcinomatosis (HCC); Chronic Obstructive Pulmonary Disease With Acute Lower Respiratory Infection (HCC) Discharge Disposition: Home or Self Care 01/11/2025 9:30 AM CDT Infusion Department of Oncology in [place], [place] [address] [place] [phone] Dafne Guerrero APRN, C.N.P., M.S. Medication Therapy Sausage Stuffer Not Anticoagulant (Primary Dx); Malignant Neoplasm Of Appendix (HCC); Medication Therapy Half-Way Not Anticoagulant 01/11/2025 9:10 AM CDT Office Visit Department of Oncology in [place], [place] [address] [place] [phone] Dafne Guerrero APRN, C.N.P., M.S. Kimberly Alvarez Pharm.D., R.Ph., OP Medication Therapy Half-Way Not Anticoagulant (Primary Dx); Malignant Neoplasm Of Appendix (HCC); Medication Therapy Half-Way Not Anticoagulant 01/11/2025 7:00 AM CDT Lab Department of Oncology in [address] [address] Dafne Guerrero APRN C.N.P., M.S. Malignant Neoplasm Of Appendix (HCC) (Primary Dx); Medication Therapy Sausage Stuffer Not Anticoagulant; Medication Therapy Half-Way Not Anticoagulant 12/29/2024 Refill Department of Oncology in [address] [phone] Dafne Guerrero APRN, C.N.P., M.S. Med Refill 12/20/2024 10:00 AM CDT Infusion Department of Oncology in [place], [place] [address] [place] [phone] Dafne Guerrero APRN, C.N.P., M.S. Malignant Neoplasm Of Appendix (HCC) (Primary Dx); Medication Therapy Half-Way Not Anticoagulant; Medication Therapy Half-Way Not Anticoagulant; Peritoneal Carcinomatosis (HCC) 12/20/2024 9:10 AM CDT Office Visit Department of Oncology in [place], [place] [address] [place] [phone] Mathew Louis M.D. Malignant Neoplasm Of Appendix (HCC) (Primary Dx); Medication Therapy Sausage Stuffer Not Anticoagulant; Medication Therapy Sausage Stuffer Not Anticoagulant; Chronic Obstructive Pulmonary Disease With Acute Lower Respiratory Infection (HCC); Peritoneal Carcinomatosis (HCC); Thrombosis Jugular Vein Internal Acute Right (HCC); Chronic Respiratory Failure With Hypoxia (HCC) 12/20/2024 7:00 AM CDT Lab Department of Oncology in [address] [phone] Dafne Guerrero APRN, C.N.P., M.S. Malignant Neoplasm Of Appendix (HCC) (Primary Dx); Medication Therapy Half-Way Not Anticoagulant; Medication Therapy Sausage Stuffer Not Anticoagulant 12/15/2024 10:00 AM CDT Clinical Communication Virtual Review in [address] [phone] Pre-visit Intake 11/29/2024 10:00 AM CDT Infusion Department of Oncology in [address] [phone] Dafne Guerrero APRN C.N.P., M.S. Medication Therapy Sausage Stuffer Not Anticoagulant (Primary Dx); Malignant Neoplasm Of Appendix (HCC); Medication Therapy Sausage Stuffer Not Anticoagulant 11/29/2024 9:10 AM CDT Office Visit Department of Oncology in [address] [phone] Dafne Guerrero APRN, Main.N.P., M.S. Kimberly Alvarez Pharm.D., R.Ph., BCOP Medication Therapy Half-Way Not Anticoagulant (Primary Dx); Malignant Neoplasm Of Appendix (HCC); Medication Therapy Half-Way Not Anticoagulant 11/29/2024 7:15 AM CDT Lab Department of Oncology in [address] [phone] Dafne Guerrero APRN, C.N.P., M.S. Malignant Neoplasm Of Appendix (HCC) (Primary Dx); Medication Therapy Sausage Stuffer Not Anticoagulant; Medication Therapy Half-Way Not Anticoagulant 11/29/2024 Refill Department of Oncology in [address] [phone] Dafne Guerrero APRN, C.N.P., M.S. Med Refill 11/25/2024 Refill Division of Allergic Diseases in [address] [phone] Syed Us M.D. Med Refill 11/17/2024 Refill Department of Oncology in [address] [phone] Dafne Guerrero APRN, C.N.P., M.S. Med Refill (Prednisone ) 11/09/2024 2:00 PM CARTON FORMING MACHINE HELPER Infusion Department of Oncology in [address] [phone] Ellis Osorio M.D. Medication Therapy Half-Way Not Anticoagulant (Primary Dx); Malignant Neoplasm Of Appendix (HCC); Medication Therapy Sausage Stuffer Not Anticoagulant 11/09/2024 1:20 PM CARTON FORMING MACHINE HELPER Office Visit Department of Oncology in [address] [phone] Dafne Guerrero APRN C.N.P., M.S. Malignant Neoplasm Of Appendix (HCC) (Primary Dx); Peritoneal Carcinomatosis (HCC); Medication Therapy Half-Way Not Anticoagulant; Medication Therapy Sausage Stuffer Not Anticoagulant 11/09/2024 11:15 AM CARTON FORMING MACHINE HELPER Lab Department of Oncology in [address] [phone] Ellsi Osorio M.D. Malignant Neoplasm Of Appendix (HCC) (Primary Dx); Medication Therapy Half-Way Not Anticoagulant; Medication Therapy Half-Way Not Anticoagulant 11/09/2024 7:01 AM CARTON FORMING MACHINE HELPER - 11/09/2024 11:59 PM CARTON FORMING MACHINE HELPER Hospital Encounter Department of Radiology, [facility], in [address] [phone] Dafne Guerrero APRN, C.N.P., M.S. Malignant Neoplasm Of Appendix (HCC); Medication Therapy Half-Way Not Anticoagulant; Medication Therapy Sausage Stuffer Not Anticoagulant; Peritoneal Carcinomatosis (HCC) Discharge Disposition: Home or Self Care 11/04/2024 4:15 PM CARTON FORMING MACHINE HELPER Clinical Communication Virtual Review in [place], [place] [address] [place] [phone] Pre-visit Intake from Last 3 Months Immunizations Immunization Administration Dates Next Due H1N1 Inj 07/28/2009 HepA Adult 08/03/2019(Deferred: Other) HepB Adult 08/03/2019(Deferred: Other) Influenza, Unspecified 08/03/2019(Deferred: Marzena ent decision) PCV13 12/01/2013 PPSV23 10/18/2003 RZV (SHINGRIX) 07/23/2020,08/03/2019 Tdap 08/26/2023,12/01/2013 influenza trivalent vaccine (6 months and older)(PF) 06/21/2009 influenza vaccine QV(FLUBLOK ) (18 years or older) (PF) 07/23/2020 influenza vaccine quad (FLUZONE/FLUARIX) (6 months and older)(PF) 07/23/2020,08/03/2019,07/28/2009,2008 Family History Medical History Relation Name Comments No Known Problems Brother 1 No Known Problems Brother 2 No Known Problems Brother 3 No Known Problems Brother 4 No Known Problems Brother 5 Heart failure Father Cancer Mother unknown type No Known Problems Sister Relation Name Status Comments Brother 1 Brother 2 Brother 3 Brother 4 Brother 5 Father Mother Sister Social History Tobacco Use Types Packs/Day Years Used Date Smoking Tobacco: Never Passive Smoke Exposure: Past Smokeless Tobacco: Never Tobacco Cessation:Counseling Given: Not Answered Passive Exposure Comments:Years & Years ago Alcohol Use Standard Drinks/Week Comments Yes 20 (1 standard drink = 0.6 oz pu re alcohol) Daily [facility] Utilities Answer Date Recorded In the past 12 months has e [employer], gas, oil, or water [employer] threatened to shut off services in your [...] re latives? Once a week 08/23/2022 Attends [employer] Not on file 08/23 Do you belong to any clubs o r organizations such as gnosticist groups, unions, fraternal or athletic groups, or [...] Answer Date Recorded PHQ-2 Score 0 08/03/2019 [facility] - Occupational Stress [...] your living situation today? I have a [facility] place to live 12/28/2023 Education Answer Date Recorded What is the highest level of school you have completed or the highest degree you have received? Associate degree: occupational, technical, or vocational program 12/10/2021 Sex and Gender Information Value Date Recorded Sex Assigned at Male 04/30/2018 10:15 AM CDT Legal Sex Male 1:57 AM CARTON FORMING MACHINE HELPER Gender Identity Male 04/30/2018 10:15 AM CDT Sexual Orientation Straight 04/30/2018 10 :15 AM CDT Last Filed Vital Signs Vital Sign Reading Time Taken Comments Blood Pressure 157/80 01/11/2025 9:02 AM CDT Pulse 88 01/13/2025 12:50 PM CDT Temperature 36.2 C (97.2 F) 01/11/2025 9:02 AM CDT Respiratory Rate 16 01/13/2025 12:50 PM CDT Oxygen Saturation 98% 01/13/2025 12:50 PM CDT Inhaled Oxygen Concentration - - Weight 113 kg (250 lb 3.6 oz) 01/11/2025 9:02 AM CDT Height 175 cm (5' 8.9) 01/11/2025 9:02 AM CDT Body Mass Index 37.06 01/11/2025 9:02 AM CDT Plan of Treatment Upcoming Encounters Date Type Department Care Team (Latest Contact Info) Description 01/31/2025 4:00 PM CDT Appointment Department of Radiology, [facility], in [place], [place] [address] [place] [phone] Mathew Louis M.D. [address] [place] [phone] 02/01/2025 11:30 AM CDT Lab Department of Oncology in [place], [place] [address] [place] [phone] Dafne Guerrero APRN, C.N.P., M.S. [address] [place] [phone] 02/01/2025 1:30 PM CDT Office Visit Department of Oncology in [place], [place] [address] [place] [phone] Jaskaran Harris M.D., Ph.D. [address] [place] [phone] 02/01/2025 2:15 PM CDT Infusion Department of Oncology in [place], [place] [address] [place] [phone] Dafne Guerrero APRN, C.N.P., M.S. [address] [place] [phone] 02/16/2025 10:15 AM CDT Clinical Communication Virtual Review in [place], [place] 200 [place] [phone] 02/21/2025 9:00 AM CDT Lab Department of Oncology in [place], [place] [address] [place] [phone] Dafne Guerrero APRN, C.N.P., M.S. [address] [place] [phone] 02/21/2025 10:40 AM CDT Office Visit Department of Oncology in [place], [place] [address] [place] [phone] Dafne Guerrero APRN, Main.N.P., M.S. [address] [place] [phone] 02/21/2025 1:00 PM CDT Infusion Department of Oncology in [place], [place] [address] [place] [phone] Dafne Guerrero APRN, C.N.Candelario., M.S. [address] [place] [phone] 03/20/2025 12:15 PM CDT Clinical Communication Virtual Review in [place], [place] 200 [place] [phone] 03/21/2025 6:30 AM CDT Lab Department of Laboratory Medicine and Pathology, [facility] in [place], [place] [address] [place] [phone] Dafne Guerrero APRN, C.N.P., M.S. [address] [place] [phone] 03/21/2025 8:20 AM CDT Office Visit Department of Oncology in [place], [place] [address] [place] [phone] Mathew Louis M.D. [address] [place] [phone] 03/21/2025 9:00 AM CDT Infusion Department of Oncology in [place], [place] [address] [place] [phone] Dafne Guerrero APRN, C.N.P., M.S. [address] [place] [address] Health Maintenance Due Date Last Done Comments CT Colonography 1957 Cologuard 1955 Pneumococcal vaccine (50+ years) (3 of 3 - PPSV23, PCV20 or PCV21) 01/26/2014 12/01/2013, 10/18/2003 RSV vaccine - (32-36 weeks) or 60+ years (1 - Risk 60-74 years 1-dose series) 2017 COVID-19 Vaccine ( season) 2024 08/07/2021, 11/01/2020, 10/04/2020 Influenza Vaccine (#1) 2024 , 07/23/2020, 08/03/2019, Additional history exists Depression Screening (Annual PHQ-2) 09/21/2024 Fall Risk Screen (Annual) 09/21/2024 Office Visit for Blood Pressure Check / Re-check 04/12/2025 01/11/2025 Creatinine Level (Kidney Function Test) 01/11/2026 01/11/2025, 12/20/2024, 11/29/2024, Additional history exists Potassium Level 01/11/2026 01/11/2025, 04/0 09/2024, 11/29/2024, Additional history exists Sodium Level 01/11/2026 01/11/2025, 04/0 09/2024, 11/29/2024, Additional history exists Colonoscopy 03/05/2026 03/05/2021, 08/21, 08/09/2014, Additional history exists Colorectal Cancer Surveillance 03/05/2026 Fasting Glucose for Diabetes Screening 01/12/2028 01/11/2025, 12/20/2024, 11/29/2024, Additional history exists DTaP,Tdap,and Td Vaccines (3 - Td or Tdap) 08/26/2033 08/26/2023, 12/01/2013 Hepatitis C Screening Completed 08/30/2019 Zoster Vaccines Completed 07/23/2020, 08/03/2019 HPV Vaccines Aged Out No longer eligi ble based on patient's age to complete this topic IPV Vaccines Aged Out No longer eligi ble based on patient's age to complete this topic Medical Devices Implanted Type Area Caretaker Resort Device Identifier Shelf Expiration Date Model / Serial / Lot Clp Hmol Veronika Jones - [id number] Implanted:Qty : 1 on 11/15/2019 by Kwame Menon M.D. at [facility] Hardware e.g. pins/screws/ro ds [employer] [id number] 12/21/2023 [id number] / / [id number] Prt Cath Infus Mri Intrmd 8f - [id number] Implanted:Qty : 1 on 04/10/2023 by Boyd Merchant M.D. at [facility] Implantable [employer] 11/18/2024 [id number] / / [id number] Explanted Type Area Caretaker Resort Device Identifier Shelf Expiration Date Model / Serial / Lot Prt Cath Infus Mri 8f - [id number] Implanted:Qty : 1 on 12/13/2019 by David Rivera M.D. at [facility] [employer] Explanted:Qty : 1 on 06/07/2021 at [facility] [employer] Implantable [employer] 01/18/2021 [id number] / / [id number] Procedures Procedure Name Priority Date/Time Associated Diagnosis Comments BILIRUBIN DIRECT, S/P Routine 01/11/2025 7:05 AM CDT Malignant Neoplasm Of Appendix (HCC) Medication Therapy Half-Way Not Anticoagulant Medication Therapy Half-Way Not Anticoagulant COMPREHENSIVE METABOLIC PANEL, S/P Routine 01/11/2025 7:05 AM CDT Malignant Neoplasm Of Appendix (HCC) Medication Therapy Half-Way Not Anticoagulant Medication Therapy Half-Way Not Anticoagulant CBC WITH DIFFERENTIAL, B Routine 01/11/2025 7:05 AM CDT Malignant Neoplasm Of Appendix (HCC) Medication Therapy Half-Way Not Anticoagulant Medication Therapy Sausage Stuffer Not Anticoagulant CARCINOEMBRYONIC AG (CEA), S Routine 01/11/2025 7:05 AM CDT Malignant Neoplasm Of Appendix (HCC) Medication Therapy Sausage Stuffer Not Anticoagulant Medication Therapy Sausage Stuffer Not Anticoagulant BILIRUBIN DIRECT, S/P Routine 12/20/2024 7:08 AM CDT Malignant Neoplasm Of Appendix (HCC) Medication Therapy Sausage Stuffer Not Anticoagulant Medication Therapy Half-Way Not Anticoagulant COMPREHENSIVE METABOLIC PANEL, S/P Routine 12/20/2024 7:08 AM CDT Malignant Neoplasm Of Appendix (HCC) Medication Therapy Sausage Stuffer Not Anticoagulant Medication Therapy Sausage Stuffer Not Anticoagulant CBC WITH DIFFERENTIAL, B Routine 12/20/2024 7:08 AM CDT Malignant Neoplasm Of Appendix (HCC) Medication Therapy Sausage Stuffer Not Anticoagulant Medication Therapy Half-Way Not Anticoagulant CARCINOEMBRYONIC AG (CEA), S Routine 12/20/2024 7:08 AM CDT Malignant Neoplasm Of Appendix (HCC) Medication Therapy Half-Way Not Anticoagulant Medication Therapy Sausage Stuffer Not Anticoagulant BILIRUBIN DIRECT, S/P Routine 11/29/2024 7:14 AM CDT Malignant Neoplasm Of Appendix (HCC) Medication Therapy Sausage Stuffer Not Anticoagulant Medication Therapy Sausage Stuffer Not Anticoagulant COMPREHENSIVE METABOLIC PANEL, S/P Routine 11/29/2024 7:14 AM CDT Malignant Neoplasm Of Appendix (HCC) Medication Therapy Sausage Stuffer Not Anticoagulant Medication Therapy Half-Way Not Anticoagulant CBC WITH DIFFERENTIAL, B Routine 11/29/2024 7:14 AM CDT Malignant Neoplasm Of Appendix (HCC) Medication Therapy Half-Way Not Anticoagulant Medication Therapy Half-Way Not Anticoagulant CARCINOEMBRYONIC AG (CEA), S Routine 11/29/2024 7:14 AM CDT Malignant Neoplasm Of Appendix (HCC) Medication Therapy Half-Way Not Anticoagulant Medication Therapy Half-Way Not Anticoagulant BILIRUBIN DIRECT, S/P Routine 11/09/2024 10:32 AM CARTON FORMING MACHINE HELPER Malignant Neoplasm Of Appendix (HCC) Medication Therapy Sausage Stuffer Not Anticoagulant Medication Therapy Half-Way Not Anticoagulant COMPREHENSIVE METABOLIC PANEL, S/P Routine 11/09/2024 10:32 AM CARTON FORMING MACHINE HELPER Malignant Neoplasm Of Appendix (HCC) Medication Therapy Half-Way Not Anticoagulant Medication Therapy Sausage Stuffer Not Anticoagulant CBC WITH DIFFERENTIAL, B Routine 11/09/2024 10:32 AM CARTON FORMING MACHINE HELPER Malignant Neoplasm Of Appendix (HCC) Medication Therapy Half-Way Not Anticoagulant Medication Therapy Half-Way Not Anticoagulant CARCINOEMBRYONIC AG (CEA), S Routine 11/09/2024 10:32 AM CARTON FORMING MACHINE HELPER Malignant Neoplasm Of Appendix (HCC) Medication Therapy Sausage Stuffer Not Anticoagulant Medication Therapy Half-Way Not Anticoagulant CT CHEST WITH IV CONTRAST RAD - Routine (most inpatients and all outpatients) 11/09/2024 8:13 AM CARTON FORMING MACHINE HELPER Malignant Neoplasm Of Appendix (HCC) Medication Therapy Sausage Stuffer Not Anticoagulant Peritoneal Carcinomatosis (HCC) CT ABDOMEN PELVIS WITH IV CONTRAST RAD - Routine (most inpatients and all outpatients) 11/09/2024 8:13 AM CARTON FORMING MACHINE HELPER Malignant Neoplasm Of Appendix (HCC) Medication Therapy Half-Way Not Anticoagulant Medication Therapy Sausage Stuffer Not Anticoagulant Peritoneal Carcinomatosis (HCC) COLONOSCOPY Routine 03/05/2021 8:51 AM CDT Malignant Neoplasm Of Appendix (HCC) HCV AB SCRN W/REFLEX TO HCV PCR, S Routine 08/30/2019 7:35 AM CARTON FORMING MACHINE HELPER General Medical Examination Adult from Last 3 Months or Most Recently Relevant to Health Maintenance Results * (ABNORMAL) CBC with Differential, Blood (01/11/2025 7:05 AM CDT) Only the most recent of4 resultswithin the time period is included. Hemoglobin 12.8(L) 13.2 - 16.6 g/dL 01/11/2025 [...] M.S. LAB BLOOD AD D-ON Final Result [facility] [address] [place] [address], [facility] DTL [facility] [address] [place] [address] [facility] [address] [place] [address] * (ABNORMAL) CEA (Carcinoembryonic Antigen) (01/11/2025 7:05 AM CDT) Only the most recent of4 resultswithin the time period is included. Carcinoembryonic Ag (CEA), S 8.0(H) ng/mL 01/11/2025 11:56 AM CDT [facility] Comment: ----REFERENCE VALUE---- <=3.0 (Non-smokers) Some smokers may have elevated CEA, usually <5.0. ----ADDITIONAL INFORMATION---- The testing method is an immunoenzymatic assay manufactured by [employer] and performed on the [employer] DxI 800. Values obtained with different assay methods or kits may be different and cannot be used interchangeably. Test results cannot be interpreted as absolute evidence for the presence or absence of malignant disease. Blood (Blood, Venous) 01/11/2025 7:05 AM CDT 01/11/2025 11:06 AM CDT Main Juares APRN.N.Candelario., M.S. LAB BLOOD AD D-ON Final Result Performing Organization Address City/[facility]/ZIP Co de Phone Number [facility] [address] [place] [address] Formerly [facility] [address] [place] [address] * Bilirubin, Direct (01/11/2025 7:05 AM CDT) Only the most recent of4 resultswithin the time period is included. Bilirubin, Direct, S <0.2 0.0 - 0.3 mg/dL 01/11/2025 7:54 AM CDT DT Blood (Blood, Venous) 01/11/2025 7:05 AM CDT 01/11/2025 7:32 AM CDT Main Juares APRN.N.P., M.S. LAB BLOOD AD D-ON Final Result Performing Organization Address City/[facility] Co de Phone Number [facility] [address] [place] [address], [place] [facility] [address] [place] [address] * (ABNORMAL) Comprehensive Metabolic Panel (01/11/2025 7:05 AM CDT) Only the most recent of4 resultswithin the time period is included. Potassium, S 4.3 3.6 - 5.2 mmol/L [...] AM CDT 01/11/2025 7:32 AM CDT Dafne Guerrero APRN, C.N.P., M.S. LAB BLOOD AD D-ON Final Result [facility] [address] [place] [address], [place] DTL [facility] [address] [place] [address] * CT Abdomen Pelvis with IV Contrast (11/09/2024 8:13 AM [employer]MING MACHINE HELPER) Anatomical Region Laterality Modality Abdomen, Pelvis, Abdominal R ST LOS, Abdominal ARZ LOS, Abdominal FLA LOS N/A Computed Tomograp hy, Computed Tomography 11/09/2024 8:15 AM [employer] MACHINE HELPER Impressions 11/09/2024 8:23 AM [employer] MACHINE HELPER 1. Slowly progressive peritoneal carcinomatosis involving especially the anterior abdominal omentum, no associated complications 2. 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 Gallbladder normal. Bile ducts normal. Stomach unremarkable. Stable small enhancing lesion in spleen inferior to the splenic hilum likely represents a hemangioma. Adrenal glands normal. Kidneys unremarkable. Extent of fat stranding and nodularity in the anterior mesentery, commensurate with peritoneal carcinomatosis, known in this patient, has increased in prominence over time compared to the prior CT examinations. Due to the diffuse nature of the process, precise measurement is challenging, but visually there has been an increase in intensity of involvement of the mentum. For instance, on axial reference image 100, series 301, or sagittal reference image 139, series 306-0001 there is significantly more fat stranding than on the prior studies. Currently no associated bowel obstruction. Small fat-containing umbilical hernia is present. Pelvis: Prostate calcifications, normal bladder. No pelvic ascites. Procedure Note Hiren Bailey M.D., Ph.D. - 11/09/2024 EXAM: CT ABDOMEN PELVIS WITH IV CONTRAST COMPARISON: Prior CTs from 08/09/2024, 05/17/2024 and 03/23/2024 FINDINGS: History of malignant neoplasm of appendix, prior robotic assist and rightcolectomy for high-grade goblet cell adenocarcinoma, subsequentchemotherapy CAPOX / XELOX ( Capecitabine / Oxaliplatin ), FOLFIRI (Fluorouracil / Leucovorin / Irinotecan for treatment of omental recurrent disease Concurrent chest CT is being performed today, for details regarding chest,please refer to that report No focal liver lesions identified. Gallbladder normal. Bile ducts normal.Stomach unremarkable. Stable small enhancing lesion in spleen inferior tothe splenic hilum likely represents a hemangioma. Adrenal glands normal.Kidneys unremarkable. Extent of fat stranding and nodularity in the anterior mesentery, commensurate withperitoneal carcinomatosis, known in this patient, has increased inprominence over time compared to the prior CT examinations. Due to thediffuse nature of the process, precise measurement is challenging, but visually there has been an increase inintensity of involvement of the mentum. For instance, on axial referenceimage 100, series 301, or sagittal reference image 139, series 306-0001there is significantly more fat stranding than on the prior studies. Currently no associated bowel obstruction. Small fat-containing umbilicalhernia is present. Pelvis: Prostate calcifications, normal bladder. No pelvic ascites. IMPRESSION: 1. Slowly progressive peritoneal carcinomatosis involving especially theanterior abdominal omentum, no associated complications 2. No evidence for hepatic metastatic disease us Dafne Guerrero APRN, C.N.P., M.S. IMG ALEXIS HERRERA Final Result * CT Chest with IV Contrast (11/09/2024 8:13 AM [employer]ING MACHINE HELPER) Anatomical Region Laterality Modality Chest, Thoracic RST LOS, Tho racic ARZ LOS, Thoracic ARZ LOS, Thoracic FLA LOS N/A Computed Tomography, Compute d Tomography 11/09/2024 8:10 AM [employer]ING MACHINE HELPER Impressions 11/09/2024 9:57 AM [employer]ING MACHINE HELPER 1. No significant change in the extensive bilateral cystic and varicoid bronchiectasis and bronchial wall thickening with some new areas of endobronchial mucus plugging in the left lower lobe. 2. Scattered bilateral micronodularity has not changed significantly and is likely infectious/inflammatory. 3. No definite evidence of metastatic disease in the chest. Narrative 11/09/2024 9:57 AM [employer] FORMING MACHINE HELPER EXAM: CT CHEST WITH IV CONTRAST COMPARISON: CT chest 08/09/2024 FINDINGS: Extensive bilateral cystic and varicoid bronchiectasis with associated bronchial wall thickening has not changed significantly since 08/09/2024. Scattered areas of endobronchial mucus plugging with some new areas of endobronchial mucous plugging in the left lower lobe. Scattered bilateral micronodularity and tree-in-bud opacities have not changed significantly. No definite new nodules. Mosaic attenuation of the lung parenchyma suggests small airways disease. Tracheal diverticulum. Scattered prominent mediastinal and hilar nodes are stable and are likely reactive. No new adenopathy in the chest. Stable tiny low-attenuation nodule in the left lobe of the thyroid. Port-A-Cath with tip in the right atrium. Coronary artery calcification. Aortic valvular calcification. Stable mediastinal lipomatosis. Old left clavicle fracture. This examination was performed in conjunction with a CT of the abdomen, which will be reported separately. 3D maximum intensity projection (MIP) images were created on a dependent workstation as ordered by the treating provider and reviewed by the radiologist to increase sensitivity for detection of pulmonary nodules. Dafne Guerrero APRN, C.N.P., M.S. IM CT [facility] Final Result * Colonoscopy (03/05/2021 8:51 AM CDT) 03/05/2021 8:51 AM CDT Impressions [facility] - 03/05/2021 9:55 AM CDT Post-op Diagnoses: - Patent end-to-side colo-colonic anastomosis, characterized by healthy appearing mucosa. - The examined portion of the ileum was normal. - Diverticulosis in the entire examined colon. - The examination was otherwise normal on direct and retroflexion views. - No specimens collected. Narrative [facility] - 03/05/2021 9:55 AM CDT [facility] Patient Name: Carrillo Stearns Date of : 1955 Age: 65 Gender: Male Procedure Date: 03/05/2021 Procedure: Colonoscopy Providers: Mathew Sin MD Referring Provider: Dafne Guerrero Pre-op Diagnoses: Appendiceal cancer; history of hemicolectomy Recommendation: - Return to referring physician as previously scheduled. Findings: There was evidence of a prior end-to-side colo-colonic anastomosis in the transverse colon. This was patent and was characterized by healthy appearing mucosa. The anastomosis was traversed. The magdiel-terminal ileum appeared normal. Scattered small-mouthed diverticula were found in the entire colon. The exam was otherwise without abnormality on direct and retroflexion views. Procedural Details: The patient was seen, evaluated, history reviewed, airway and heart-lung exams were performed by licensed provider and were satisfactory for planned level of sedation care. The risks, benefits and alternatives for the procedure and sedation were discussed and informed consent was obtained. A procedural pause was conducted in the presence of assisting personnel to verify the correct patient identity and procedure to be performed. Throughout the procedure, the patient's blood pressure, pulse, and oxygen saturations were monitored continuously. The Colonoscope was introduced through the anus and advanced to the the cecum, identified by the appendiceal orifice. The colonoscopy was performed without difficulty. The patient tolerated the procedure well. The quality of the bowel preparation was adequate to identify polyps. Complications: No immediate complications. Estimated blood loss: None. Estimated Blood Loss: Estimated blood loss: none. Attending Participation: I personally performed the entire procedure. Mathew Sin MD 03/05/2021 9:54:52 AM This report has been signed electronically. Number of Addenda: 0 Note Initiated On: 03/05/2021 8:51 AM us Dafne Guerrero APRN, C.N.P., M.S. GI PROCEDURE ORDERABLES Final Result [facility] NA * HCV Ab Scrn w/Reflex to HCV PCR, Serum (08/30/2019 7:35 AM [employer]ING MACHINE HELPER) HCV Ab Screen, S Negative Negative 08/30/2019 11:44 AM [employer] MACHINE HELPER [facility] Comment:Cestqd-[id number] rat io is <1.00. Blood (Blood, Venous) 08/30/2019 7:35 AM [employer]ING MACHINE HELPER 08/30/2019 10:27 AM [employer]MING MACHINE HELPER Eliot Muse M.D. LAB MICROBIOLOGY - BLOOD O RDERABLES Final Result [facility] [address] [place] [address] [facility] Dept. of Laboratory Medicine and Pathology [address] [place] [id number] from Last 3 Months or Most Recently Relevant to Health Maintenance Additional Health Concerns Infection Onset Date Last Indicated Protective Environment 04/16/2023 3 Insurance [facility] MEDICARE Advance Directives For more information, please contact: [phone] * Full Code (Latest Code Status on File) Date Activated Date Inactivated Comments 03/25/2023 5:45 AM 03/25/2023 1:44 PM Question Answer Comments Full Code: Discussed * Full Code Date Activated Date Inactivated Comments 11/15/2019 5:35 AM 11/17/2019 2:14 PM Question Answer Comments Full Code: Discussed Care Teams Food Chemist Relationship Specialty Start Date End Date Elsewhere, Pcp PCP - General Internal Medicine 10/26/23
[2025-01-27 14:42] LABS: Chloride* 91 mmol/L (96-114); Potassium* 4.1 mmol/L (3.6-5.1); Sodium* 139 mmol/L (135-149)
[2025-01-27 14:45] LABS: Blood Urea Nitrogen* 19 mg/dL (7-30); Creatinine* 0.9 mg/dL (0.5-1.5); Est. Creatinine Clearance* 71.68; Estimated Glomerular Filt Rate 94 ml/min
[2025-01-27 14:46] LABS: Glucose* 123 mg/dL (60-115)
[2025-01-27] MEDS: IPRAT-ALBUT 0.5-2.5 MG/3 ML NEB 1 NEB IH ×2 (14:46→16:04)
[2025-01-27 14:52] LABS: Anion Gap 11 mEq/L (7-15); Carbon Dioxide* 37 mmol/L (20-32)
[2025-01-27 14:55] LABS: NT Pro B Type NatriureticPept* 235 pg/mL
[2025-01-27 14:58] LABS: Troponin I* < 0.01 ng/mL (0.01-0.04)
[2025-01-27 15:06] LABS: PCR FLU A Negative PCR FLU A (Negative); PCR FLU B Negative PCR FLU B (Negative); PCR RSV Negative PCR RSV (Negative); SARS PCR* Negative SARS-CoV-2 (Negative)
[2025-01-27] MEDS: DOXYCYCLINE HYCLATE 100 MG PO (16:03)
== END 2025-01-27 16:29 | disposition home or self-care (01) ==
PROVIDERS: Emergency Provider Emergency Medicine; PCP Internal Medicine
DX: J18.9 Pneumonia, unspecified organism (principal); J98.01 Acute bronchospasm
CPT/HCPCS: 36415; 71046; 80048; 83880; 84484; 85025; 87637; 93005; 99283; 99284; 99285; A9270